=== PATIENT | female | born 1955 | race Caucasian/White ===

== ENCOUNTER → 2016-08-18 | Outpatient (CLI) | payer MEDICARE, OTHER ==
[2016-08-19 13:19] LABS: Hepatits C Virus RNA, Quant <12 IU/mL (<12); LOG HCV IU/mL <1.08 (<1.08)
== END | disposition home or self-care (01) ==
LOC: LABWHC1 13:36
PROVIDERS: ATTEND Physician Assistant
DX: B18.2 Chronic viral hepatitis C (principal)
CPT/HCPCS: 36415; 87522

== ENCOUNTER → 2016-09-24 | Outpatient (CLI) | payer MEDICARE, OTHER ==
[2016-09-24 09:44] VITALS: BP 140/83; PULSE 80; RESP 16; TEMP 97.8; BMI 33.7
--- NOTE | 2016-09-24 11:40 | P.GSHP ---
History of Present Illness H&P Date: 09/24/16 Chief Complaint: S/p sleeve gastrectomy 60 years old female with morbid obesity initial BMI 41.9, height 5 feet 6.5 inches, weight 118.93 kg status post laparoscopic sleeve gastrectomy . Her comorbid conditions include obstructive sleep apnea on CPAP, varicose veins , chronic venous dermatitis in bilateral lower extremities, hypertension, gastroesophageal reflux disease, bulimia, binge eating disorder, hepatitis C and depression. Her computed tomography scan showed malrotation of small intestine. Small bowel follow-through confirmed the diagnosis of malrotation. She also has frequent urinary tract infections. No growth on urine cultures. History of IV drug abuse and alcohol abuse in the past. She has been sober for the last 15 years and is undergoing counseling sessions. She also has a rash more prominent in the neck, chest, antecubital fossa and suprapubic area. She has seen Dr. Finn( Re[employer] Supervisor) and biopsy showed dermatitis. She is tolerating diet .Regular bowel movements. She is tearful and crying and feels she is not losing enough weight. Recent stressful situations at home and not taking protein shakes. She is not involved in any physical activity . Surgery for spinal stenosis on 02/13/16 Preoperative visit #1, 05/16/2015, weight 118.93 KG, 262.2 pound BMI 41.7 Preoperative visit #2, 06/27/2015, weight 260 pounds, BMI 41.3 Preoperative visit #3 12/12/2015, weight 119.77 KG, BMI 42.6 Surgery 12/27/2015 laparoscopic vertical sleeve gastrectomy Postoperative visit #1 01/02/2016, weight 116.8 KG, BMI 40.9 Postoperative visit #2 02/06/2016, weight 107.1 KG, BMI 37.6 Postoperative visit #3 07/02/2016, weight 97.57KG, BMI 34.2 Postoperative visit #4 09/24/2016, weight 96.24KG, BMI 33.7 - Review of Systems Comment: Constitutional: Denies fever, weight loss or loss of appetite HEENT: No difficulty in vision or hearing. Denies dysphagia. Cardiovascular: Denies chest pain, palpitations, dizziness, shortness of breath except on exertion Respiratory: Sleep apnea on CPAP. Last adjustment was 8 months ago. Gastrointestinal: History of intermittent diarrhea. Underwent colonoscopy by Dr. Tumma. Normal colonoscopy findings. Diagnosis of irritable bowel syndrome. Chronic hepatitis C. Integumentary: Long-standing skin changes with intermittent skin breakdown in bilateral lower extremities. No active ulcers. History of DVT. Maculopapular rash prominent in neck, anterior chest, lateral breast, upper extremities is markedly improved Genitourinary: No urinary incontinence, hematuria or dysuria. Frequent urinary tract infections Neurologic: No seizures, denies weakness in upper or lower extremities Musculoskeletal: Low back pain and occasional knee pain Psychiatry: Known history of depression, bulimia, eating disorder and remote history of heroine use and alcohol dependence. No suicidal ideation, no anxiety or psychosis Past Medical History Past Medical History: Eye Disorder, Fibromyalgia, Hypertension, Liver Disease, Osteoarthritis (OA), Rheumatoid Arthritis (RA), Skin Disorder, Sleep Apnea/CPAP/ BIPAP, Thyroid Disorder Additional Past Medical History / Comment(s): Hepatitis C - in remission, ELAINE- has not been wearing CPAP lately, neuorpathy bilateral hands and feet,IBS, hx colitis, frequent headaches, varicose veins bilaterally, dermatitis,hx psoriasis , chronic UTI's, raymauds-hands and feet, glaucoma bilaterally, hypothyroid. bariatric sleeve 12-27-15 History of Any Multi-Drug Resistant Organisms: None Reported Past Surgical History: Appendectomy, Bariatric Surgery, Orthopedic Surgery, Tonsillectomy Additional Past Surgical History / Comment(s): 12/27/15 laparoscopic sleeve gastrectomy with EGD. Other surgical hx: EGD/colonoscopy, nasal surgery, left hand-tendon surgery in thumb with carpal tunnel and trigger finger, RUTH KNEES AND ANKLES ARTHROSCOPY, ruth cataracts Sleeve Past Anesthesia/Blood Transfusion Reactions: Motion Sickness Past Psychological History: Anxiety, Depression Additional Psychological History / Comment(s): BORDERLINE PERSONALITY DISORDER, clausterphobia. Pt resides alone. She has a scooter for longer distances and a cane. She drives. She is seen at [facility] by Dr. Roberts. She states her psych meds work well for her. Smoking Status: Former smoker Past Alcohol Use History: None Reported Additional Past Alcohol Use History / Comment(s): quit smoking 28 yrs ago, smoked for 14 yrs. recovering alcoholic Past Drug Use History: None Reported Additional Drug Use History / Comment(s): IV DRUG USER IN PAST, CLEAN SINCE 1985 - Past Family History Mother Family Medical History: Diabetes Mellitus, Renal Disease Additional Family Medical History / Comment(s): Mother is 80yrs old. Father Family Medical History: Cancer, COPD Additional Family Medical History / Comment(s): PROSTATE and SKIN cancer. at 82 of COPD. Brother(s) Family Medical History: Cancer Additional Family Medical History / Comment(s): PROSTATE, skin Medications and Allergies Home Medications Medication Instructions Recorded Confirmed Type Levothyroxine Sodium [Synthroid] 88 mcg PO DAILY 12/03/13 06/18/16 History Lisinopril-Hctz 20-25 mg 1 tab PO DAILY 12/03/13 06/18/16 History [Zestoretic 20-25] Dicyclomine [Bentyl] 20 mg PO QID PRN 11/28/14 06/18/16 History Fluticasone Nasal [place] [Flonase 1 - 2 spray NASAL DAILY PRN 12/29/14 06/18/16 History Nasal [place]] Nystatin 100,000 Unit/gm Oint 1 applic TOPICAL DAILY PRN 12/29/14 06/18/16 History [Mycostatin Oint] Pregabalin [Lyrica] 75 mg PO BID 02/05/15 06/18/16 History Montelukast Sodium [Singulair] 10 mg PO HS 12/18/15 06/18/16 History Triamcinolone 0.1% Cream [Kenalog] 1 applic TOPICAL DAILY PRN 12/18/15 06/18/16 History Multivitamins, Thera [Multivitamin] 1 tab PO DAILY 04/24/16 06/18/16 History oxyCODONE HCL 10 mg PO BID PRN 04/24/16 06/18/16 History traZODone HCL [Desyrel] 100 mg PO HS 04/24/16 06/18/16 History Biotin 5 mg PO DAILY 06/18/16 06/18/16 History Calcium Carbonate/Vitamin D3 1 tab PO BID 06/18/16 06/18/16 History [Calcium 600-Vit D3 200 Tablet] DULoxetine HCL [Cymbalta] 60 mg PO DAILY 06/18/16 06/18/16 History Allergies Allergy/AdvReac Type Severity Reaction Status Date / Time fentanyl Allergy Rash/Hives Verified 07/02/16 09:58 lamotrigine [From Lamictal] Allergy Rash/Hives Verified 07/02/16 09:58 Sulfa (Sulfonamide Allergy Unknown Verified 07/02/16 09:58 Antibiotics) Surgical - Exam Vital Signs Temp Pulse Resp BP 97.8 F 80 16 140/83 09/24/16 09:41 09/24/16 09:41 09/24/16 09:41 09/24/16 09:41 General: Patient is alert and oriented to time, place and person and cooperative with exam. She is not in acute distress. HEENT: No pallor, no icterus, no thyroid enlargement, no cervical lymphadenopathy. Chest: Bilateral equal breath sounds present. No wheezes, no crackles. Cardiovascular: Regular rate and rhythm. Abdomen: Soft, nontender, nondistended. No right upper quadrant tenderness. Diffuse rash. Panniculitis Integumentary: Bilateral lower extremity chronic venous dermatitis. Dermatitis involving both breast and lateral abdominal wall Neurologic: Cranial nerves II-XII intact. Strength upper and lower extremities 5/5. No focal neurologic deficits. Gait is normal. Psychiatric: No anxiety or psychosis. No suicidal thoughts. Assessment and Plan (1) Chronic pain syndrome Status: Acute (2) History of sleeve gastrectomy Status: Acute (3) Hypertension Status: Chronic (4) Raynauds syndrome Status: Chronic (5) Restless leg syndrome Status: Chronic (6) Rheumatoid arthritis Status: Chronic (7) Sleep apnea with use of continuous positive airway pressure (CPAP) Status: Chronic Plan: 1. Attend support group meeting 2. Multivitamin supplementation daily- non chewable 3. Vitamin D deficiency - oral supplementation [id number] weekly 4. Increase physical activity 5. Check CBC, CMP, mineral and vitamin levels prior to next visit in 3 months 6. Strongly recommend seeing pysch counsellor TONY.
== END | disposition home or self-care (01) ==
LOC: BARWHC3 09:09
PROVIDERS: ATTEND Surgery
DX: Z48.815 Encounter for surgical aftercare following surgery on the digestive system (principal); Z71.3 Dietary counseling and surveillance; E66.01 Morbid (severe) obesity due to excess calories; Z98.84 Bariatric surgery status; E55.9 Vitamin D deficiency, unspecified; Z68.33 Body mass index [BMI] 33.0-33.9, adult; Z79.899 Other long term (current) drug therapy; Z88.8 Allergy status to other drugs, medicaments and biological substances; Z88.2 Allergy status to sulfonamides; G89.4 Chronic pain syndrome; I10 Essential (primary) hypertension; I73.00 Raynaud's syndrome without gangrene; G25.81 Restless legs syndrome; M06.9 Rheumatoid arthritis, unspecified; G47.30 Sleep apnea, unspecified; Z99.89 Dependence on other enabling machines and devices; Z87.891 Personal history of nicotine dependence; F10.21 Alcohol dependence, in remission; M79.7 Fibromyalgia; M19.90 Unspecified osteoarthritis, unspecified site; E07.9 Disorder of thyroid, unspecified; Z86.19 Personal history of other infectious and parasitic diseases
CPT/HCPCS: 97803; G0463; 99211

== ENCOUNTER 2016-10-12 21:03 | Emergency (ER) | payer MEDICARE, OTHER ==
[2016-10-12 23:10] LABS: Amorphous Sediment,Urine Occasional /hpf; Appearance,Urine Cloudy (Clear); Bilirubin,Urine Negative (Negative); Glucose,Urine (UA) Negative (Negative); Ketones,Urine Negative (Negative); Leukocyte Esterase,Urine Large (Negative); Mucus,Urine Rare /hpf; Nitrite,Urine Negative (Negative); Particle Count 3616; Protein,Urine Trace (Negative); RBC,Urine 11 /hpf (0-5); Specific Gravity,Urine 1.025 (1.001-1.035); Squamous Epithelial Cell,Urine 3 /hpf (0-4); UA Billing (MACRO vs. MICRO) MICRO; Urobilinogen,Urine <2.0 mg/dL (<2.0); WBC,Urine >182 /hpf (0-5)
[2016-10-12] MEDS ORDERED: LEVOFLOXACIN 500 MG TAB PO STA (23:22)
[2016-10-12] MEDS ORDERED: PHENAZOPYRIDINE 100 MG TAB PO STA (23:22)
--- NOTE | 2016-10-12 23:26 | ED ---
Female Urogenital HPI - General Chief complaint: Urogenital Stated complaint: Poss UTI Time Seen by Provider: 10/12/16 22:47 Source: patient Mode of arrival: ambulatory Limitations: no limitations - History of Present Illness MD Complaint: dysuria Onset/Timin -: hour(s) Location: suprapubic Radiation: non-radiating Severity: moderate Quality: other (Pressure) Consistency: constant Improves with: none Worsens with: urination Patient : No Associated Symptoms: dysuria, other (Urgency) - Related Data Home Medications Medication Instructions Recorded Confirmed Levothyroxine Sodium [Synthroid] 88 mcg PO DAILY 12/03/13 10/12/16 Lisinopril-Hctz 20-25 mg 1 tab PO DAILY 12/03/13 10/12/16 [Zestoretic 20-25] Dicyclomine [Bentyl] 20 mg PO QID PRN 11/28/14 10/12/16 Fluticasone Nasal [place] [Flonase 1 - 2 spray NASAL DAILY PRN 12/29/14 10/12/16 Nasal [place]] Nystatin 100,000 Unit/gm Oint 1 applic TOPICAL DAILY PRN 12/29/14 10/12/16 [Mycostatin Oint] Pregabalin [Lyrica] 75 mg PO BID 02/05/15 10/12/16 Montelukast Sodium [Singulair] 10 mg PO HS 12/18/15 10/12/16 Triamcinolone 0.1% Cream [Kenalog] 1 applic TOPICAL DAILY PRN 12/18/15 10/12/16 Multivitamins, Thera [Multivitamin] 1 tab PO DAILY 04/24/16 10/12/16 oxyCODONE HCL 10 mg PO BID PRN 04/24/16 10/12/16 traZODone HCL [Desyrel] 100 mg PO HS 04/24/16 10/12/16 Biotin 5 mg PO DAILY 06/18/16 10/12/16 Calcium Carbonate/Vitamin D3 1 tab PO BID 06/18/16 10/12/16 [Calcium 600-Vit D3 200 Tablet] DULoxetine HCL [Cymbalta] 60 mg PO DAILY 06/18/16 10/12/16 Previous Rx's Medication Instructions Recorded Nitrofurantoin Monohyd/M-Cryst 100 mg PO Q12HR #10 cap 06/18/16 [Macrobid] Ciprofloxacin HCl [Cipro] 500 mg PO Q12HR #14 tablet 10/12/16 Phenazopyridine [Pyridium] 100 mg PO TID #6 tablet 10/12/16 Allergies Allergy/AdvReac Type Severity Reaction Status Date / Time fentanyl Allergy Rash/Hives Verified 10/12/16 22:16 lamotrigine [From Lamictal] Allergy Rash/Hives Verified 10/12/16 22:16 Sulfa (Sulfonamide Allergy Unknown Verified 10/12/16 22:16 Antibiotics) Review of Systems ROS Statement: Those systems with pertinent positive or pertinent negative responses have been documented in the HPI. ROS Other: All systems not noted in ROS Statement are negative. Constitutional: Denies: fever, chills Respiratory: Denies: cough, dyspnea Cardiovascular: Denies: chest pain, palpitations Gastrointestinal: Reports: as per HPI, abdominal pain. Denies: nausea, vomiting , diarrhea, constipation Genitourinary: Reports: as per HPI, urgency, dysuria, frequency. Denies: discharge Musculoskeletal: Denies: back pain Skin: Denies: rash Neurological: Denies: headache Past Medical History Past Medical History: Eye Disorder, Fibromyalgia, Hypertension, Liver Disease, Osteoarthritis (OA), Rheumatoid Arthritis (RA), Skin Disorder, Sleep Apnea/CPAP/ BIPAP, Thyroid Disorder Additional Past Medical History / Comment(s): Hepatitis C - in remission, ELAINE- has not been wearing CPAP lately, neuorpathy bilateral hands and feet,IBS, hx colitis, frequent headaches, varicose veins bilaterally, dermatitis,hx psoriasis , chronic UTI's, raymauds-hands and feet, glaucoma bilaterally, hypothyroid. bariatric sleeve 12-27-15 History of Any Multi-Drug Resistant Organisms: None Reported Past Surgical History: Appendectomy, Bariatric Surgery, Orthopedic Surgery, Tonsillectomy Additional Past Surgical History / Comment(s): 12/27/15 laparoscopic sleeve gastrectomy with EGD. Other surgical hx: EGD/colonoscopy, nasal surgery, left hand-tendon surgery in thumb with carpal tunnel and trigger finger, RUTH KNEES AND ANKLES ARTHROSCOPY, ruth cataracts Sleeve Past Anesthesia/Blood Transfusion Reactions: Motion Sickness Past Psychological History: Anxiety, Depression Additional Psychological History / Comment(s): BORDERLINE PERSONALITY DISORDER, clausterphobia. Pt resides alone. She has a scooter for longer distances and a cane. She drives. She is seen at [facility] by Dr. Roberts. She states her psych meds work well for her. Smoking Status: Former smoker Past Alcohol Use History: None Reported Additional Past Alcohol Use History / Comment(s): quit smoking 28 yrs ago, smoked for 14 yrs. recovering alcoholic Past Drug Use History: None Reported Additional Drug Use History / Comment(s): IV DRUG USER IN PAST, CLEAN SINCE 1985 - Past Family History Mother Family Medical History: Diabetes Mellitus, Renal Disease Additional Family Medical History / Comment(s): Mother is 80yrs old. Father Family Medical History: Cancer, COPD Additional Family Medical History / Comment(s): PROSTATE and SKIN cancer. at 82 of COPD. Brother(s) Family Medical History: Cancer Additional Family Medical History / Comment(s): PROSTATE, skin General Exam Limitations: no limitations General appearance: alert, in no apparent distress, obese Respiratory exam: Present: normal lung sounds bilaterally. Absent: respiratory distress, wheezes, rales, rhonchi, stridor Cardiovascular Exam: Present: regular rate, normal rhythm, normal heart sounds. Absent: systolic murmur, diastolic murmur, rubs, gallop GI/Abdominal exam: Present: soft. Absent: distended, tenderness, guarding, rebound, mass Extremities exam: Present: normal inspection. Absent: pedal edema, calf tenderness Back exam: Absent: CVA tenderness (R), CVA tenderness (L) Neurological exam: Present: alert Skin exam: Present: warm, dry, intact, normal color. Absent: rash Course Vital Signs 10/12/16 22:12 Temperature 97.1 F L Pulse Rate 84 Respiratory 16 Rate Blood Pressure 130/85 O2 Sat by Pulse 97 Oximetry Medical Decision Making - Lab Data Lab Results 10/12/16 Range/Units 23:00 Urine Color Yellow Urine Appearance Cloudy H (Clear) Urine pH 5.0 (5.0-8.0) Ur Specific [place] 1.025 (1.001-1.035) Urine Protein Trace H (Negative) Urine Glucose (UA) Negative (Negative) Urine Ketones Negative (Negative) Urine Blood Trace H (Negative) Urine Nitrite Negative (Negative) Urine Bilirubin Negative (Negative) Urine Urobilinogen <2.0 (<2.0) mg/dL Ur Leukocyte Esterase Large H (Negative) Urine RBC 11 H (0-5) /hpf Urine WBC >182 H (0-5) /hpf Urine WBC Clumps Many H (None) /hpf Ur Squamous Epith Cells 3 (0-4) /hpf Amorphous Sediment Occasional H (None) /hpf Hyaline Casts 3 H (0-2) /lpf Urine Mucus Rare H (None) /hpf Disposition Clinical Impression: Urinary tract infection Disposition: HOME SELF-CARE Condition: Good Instructions: Urinary Tract Infection in Women (ED) Prescriptions: Ciprofloxacin HCl [Cipro] 500 mg PO Q12HR #14 tablet Phenazopyridine [Pyridium] 100 mg PO TID #6 tablet Referrals: Aquilino Sow DO [Primary Care Provider] - 1-2 days
[2016-10-12 23:37] VITALS: BP 137/82; PULSE 67; RESP 18; TEMP 97
== END 2016-10-12 23:37 | disposition home or self-care (01) ==
LOC: EC 21:03
DX: N39.0 Urinary tract infection, site not specified (principal); I10 Essential (primary) hypertension; M79.7 Fibromyalgia; K58.9 Irritable bowel syndrome, unspecified; K52.9 Noninfective gastroenteritis and colitis, unspecified; E03.9 Hypothyroidism, unspecified; F41.9 Anxiety disorder, unspecified; F32.9 Major depressive disorder, single episode, unspecified; Z87.891 Personal history of nicotine dependence; Z87.440 Personal history of urinary (tract) infections; Z79.51 Long term (current) use of inhaled steroids; Z79.899 Other long term (current) drug therapy; Z88.8 Allergy status to other drugs, medicaments and biological substances; Z88.5 Allergy status to narcotic agent; Z88.2 Allergy status to sulfonamides
CPT/HCPCS: 81001; 99283

== ENCOUNTER → 2017-01-07 | Outpatient (CLI) | payer MEDICARE, OTHER ==
[2017-01-07 09:55] VITALS: BP 118/77; PULSE 75; RESP 16; TEMP 97.7; BMI 32.3
[2017-01-07 12:11] LABS: CH 30.3; CHCM 33.9; HCT 42.4 % (34.0-46.0); HDW 2.74; HGB 14.4 gm/dL (11.4-16.0); MCH 30.4 pg (25.0-35.0); MCHC 33.8 g/dL (31.0-37.0); MCV 89.8 fL (80.0-100.0); Mean Platelet Volume 7.5; RBC 4.73 m/uL (3.80-5.40); RDW 13.3 % (11.5-15.5); WBC 6.3 k/uL (3.8-10.6)
[2017-01-07 12:37] LABS: ALT 51 U/L (9-52); AST 35 U/L (14-36); Alkaline Phosphatase 75 U/L (38-126); Anion Gap 16 mmol/L; Blood Urea Nitrogen 36 mg/dL (7-17); Carbon Dioxide 25 mmol/L (22-30); Chloride 104 mmol/L (98-107); Cholesterol 174 mg/dL (<200); Glucose 120 mg/dL (74-99); HDL Cholesterol 69 mg/dL (40-60); Iron 112 ug/dL (37-170); Magnesium 1.7 mg/dL (1.6-2.3); Non-African American GFR(MDRD) 56 (>60 ml/min/1.73 sqM); Phosphorous 4.4 mg/dL (2.5-4.5); Potassium 4.5 mmol/L (3.5-5.1); Sodium 145 mmol/L (137-145); Total Bilirubin 0.6 mg/dL (0.2-1.3); Total Protein 7.8 g/dL (6.3-8.2); Triglycerides 116 mg/dL (<150)
[2017-01-07 12:48] LABS: % Iron Saturation 31.6 % (20-50); Prealbumin 20 mg/dL (18-36); Total Iron Binding Capacity 354 ug/dL (265-497)
[2017-01-07 13:46] LABS: Vitamin B12 663 pg/mL (239-931)
--- NOTE | 2017-01-07 19:10 | P.GSHP ---
History of Present Illness H&P Date: 01/07/17 Chief Complaint: 12/27/2015 laparoscopic vertical sleeve gastrectomy 60 years old female with morbid obesity initial BMI 41.9, height 5 feet 6.5 inches, weight 118.93 kg status post laparoscopic sleeve gastrectomy . Her comorbid conditions include obstructive sleep apnea on CPAP- resolved, varicose veins, chronic venous dermatitis in bilateral lower extremities- resolved , hypertension, gastroesophageal reflux disease- resolved , bulimia, binge eating disorder, hepatitis C and depression. Her computed tomography scan showed malrotation of small intestine. Small bowel follow-through confirmed the diagnosis of malrotation. She also has frequent urinary tract infections. History of IV drug abuse and alcohol abuse in the past. She has been sober for the last 15 years and is undergoing counseling sessions. She also has a rash more prominent in the neck, chest, antecubital fossa and suprapubic area. She has seen Dr. Finn( [facility]) and biopsy showed dermatitis. She is tolerating diet . Regular bowel movements. Surgery for spinal stenosis on 02/13/16 Interested in panniculectomy and breast reduction. She did see Dr. Fleming, plastic surgeon. She does not want breast reduction and now wants only panniculectomy. She has rash in the groin crease and has difficulty in maintaining local hygiene . She has resumed increased pphysical activity and has better mood and effect since last visit Preoperative visit #1, 05/16/2015, weight 118.93 KG, 262.2 pound BMI 41.7 Preoperative visit #2, 06/27/2015, weight 260 pounds, BMI 41.3 Preoperative visit #3 12/12/2015, weight 119.77 KG, BMI 42.6 Surgery 12/27/2015 laparoscopic vertical sleeve gastrectomy Postoperative visit #1 01/02/2016, weight 116.8 KG, BMI 40.9 Postoperative visit #2 02/06/2016, weight 107.1 KG, BMI 37.6 Postoperative visit #3 07/02/2016, weight 97.57KG, BMI 34.2 Postoperative visit #4 09/24/2016, weight 96.24KG, BMI 33.7 Postoperative visit #5 01/07/2017, weight 90.7KG, BMI 32.3 - Review of Systems Comment: Constitutional: Denies fever, weight loss or loss of appetite HEENT: No difficulty in vision or hearing. Denies dysphagia. Cardiovascular: Denies chest pain, palpitations, dizziness, shortness of breath except on exertion Respiratory: Sleep apnea on CPAP. Last adjustment was 8 months ago. Gastrointestinal: History of intermittent diarrhea. Underwent colonoscopy by Dr. Aragon. Normal colonoscopy findings. Diagnosis of irritable bowel syndrome. Chronic hepatitis C. Integumentary: Long-standing skin changes with intermittent skin breakdown in bilateral lower extremities. No active ulcers. History of DVT. Maculopapular rash prominent in neck, anterior chest, lateral breast, upper extremities is markedly improved Genitourinary: No urinary incontinence, hematuria or dysuria. Frequent urinary tract infections Neurologic: No seizures, denies weakness in upper or lower extremities Musculoskeletal: Low back pain and occasional knee pain Psychiatry: Known history of depression, bulimia, eating disorder and remote history of heroine use and alcohol dependence. No suicidal ideation, no anxiety or psychosis Past Medical History Past Medical History: Eye Disorder, Fibromyalgia, Hypertension, Liver Disease, Osteoarthritis (OA), Rheumatoid Arthritis (RA), Skin Disorder, Sleep Apnea/CPAP/ BIPAP, Thyroid Disorder Additional Past Medical History / Comment(s): Hepatitis C - in remission, ELAINE- has not been wearing CPAP lately, neuorpathy bilateral hands and feet,IBS, hx colitis, frequent headaches, varicose veins bilaterally, dermatitis,hx psoriasis , chronic UTI's, raymauds-hands and feet, glaucoma bilaterally, hypothyroid. bariatric sleeve 12-27-15 History of Any Multi-Drug Resistant Organisms: None Reported Past Surgical History: Appendectomy, Bariatric Surgery, Orthopedic Surgery, Tonsillectomy Additional Past Surgical History / Comment(s): 12/27/15 laparoscopic sleeve gastrectomy with EGD. Other surgical hx: EGD/colonoscopy, nasal surgery, left hand-tendon surgery in thumb with carpal tunnel and trigger finger, RUTH KNEES AND ANKLES ARTHROSCOPY, ruth cataracts Sleeve Past Anesthesia/Blood Transfusion Reactions: Motion Sickness Past Psychological History: Anxiety, Depression Additional Psychological History / Comment(s): BORDERLINE PERSONALITY DISORDER, clausterphobia. Pt resides alone. She has a scooter for longer distances and a cane. She drives. She is seen at [facility] by Dr. Roberts. She states her psych meds work well for her. Smoking Status: Former smoker Past Alcohol Use History: None Reported Additional Past Alcohol Use History / Comment(s): quit smoking 28 yrs ago, smoked for 14 yrs. recovering alcoholic Past Drug Use History: None Reported Additional Drug Use History / Comment(s): IV DRUG USER IN PAST, CLEAN SINCE 1985 - Past Family History Mother Family Medical History: Diabetes Mellitus, Renal Disease Additional Family Medical History / Comment(s): Mother is 80yrs old. Father Family Medical History: Cancer, COPD Additional Family Medical History / Comment(s): PROSTATE and SKIN cancer. at 82 of COPD. Brother(s) Family Medical History: Cancer Additional Family Medical History / Comment(s): PROSTATE, skin Medications and Allergies Home Medications Medication Instructions Recorded Confirmed Type Levothyroxine Sodium [Synthroid] 88 mcg PO DAILY 12/03/13 01/07/17 History Lisinopril-Hctz 20-25 mg 1 tab PO DAILY 12/03/13 01/07/17 History [Zestoretic 20-25] Fluticasone Nasal [place] [Flonase 1 - 2 spray NASAL DAILY PRN 12/29/14 01/07/17 History Nasal [place]] Nystatin 100,000 Unit/gm Oint 1 applic TOPICAL DAILY PRN 12/29/14 01/07/17 History [Mycostatin Oint] Montelukast Sodium [Singulair] 10 mg PO HS 12/18/15 01/07/17 History Triamcinolone 0.1% Cream [Kenalog] 1 applic TOPICAL DAILY PRN 12/18/15 01/07/17 History Multivitamins, Thera [Multivitamin] 1 tab PO DAILY 04/24/16 01/07/17 History oxyCODONE HCL 10 mg PO BID PRN 04/24/16 01/07/17 History traZODone HCL [Desyrel] 100 mg PO HS PRN 04/24/16 01/07/17 History Biotin 5 mg PO DAILY 06/18/16 01/07/17 History Calcium Carbonate/Vitamin D3 1 tab PO BID 06/18/16 01/07/17 History [Calcium 600-Vit D3 200 Tablet] DULoxetine HCL [Cymbalta] 60 mg PO DAILY 06/18/16 01/07/17 History Allergies Allergy/AdvReac Type Severity Reaction Status Date / Time fentanyl Allergy Rash/Hives Verified 01/07/17 09:42 lamotrigine [From Lamictal] Allergy Rash/Hives Verified 01/07/17 09:42 Sulfa (Sulfonamide Allergy Unknown Verified 01/07/17 09:42 Antibiotics) Surgical - Exam Vital Signs Temp Pulse Resp BP 97.7 F 75 16 118/77 01/07/17 09:49 01/07/17 09:49 01/07/17 09:49 01/07/17 09:49 General: Patient is alert and oriented to time, place and person and cooperative with exam. She is not in acute distress. HEENT: No pallor, no icterus, no thyroid enlargement, no cervical lymphadenopathy. Chest: Bilateral equal breath sounds present. No wheezes, no crackles. Cardiovascular: Regular rate and rhythm. Abdomen: Soft, nontender, nondistended. No right upper quadrant tenderness. Diffuse rash. Panniculitis Integumentary: Bilateral lower extremity chronic venous dermatitis. Dermatitis involving both breast and lateral abdominal wall and groin creases Neurologic: Cranial nerves II-XII intact. Strength upper and lower extremities 5/5. No focal neurologic deficits. Gait is normal. Psychiatric: No anxiety or psychosis. No suicidal thoughts. Results - Labs 01/07/17 11:41 01/07/17 11:41 Abnormal Lab Results - Last 24 Hours (Table) 01/07/17 Range/Units 11:41 BUN 36 H (7-17) mg/dL Glucose 120 H (74-99) mg/dL Albumin 5.1 H (3.5-5.0) g/dL HDL Cholesterol 69 H (40-60) mg/dL Diabetes panel 01/07/17 Range/Units 11:41 Sodium 145 (137-145) mmol/L Potassium 4.5 (3.5-5.1) mmol/L Chloride 104 (98-107) mmol/L Carbon Dioxide 25 (22-30) mmol/L BUN 36 H (7-17) mg/dL Creatinine 1.00 (0.52-1.04) mg/dL Glucose 120 H (74-99) mg/dL Calcium 10.0 (8.4-10.2) mg/dL AST 35 (14-36) U/L ALT 51 (9-52) U/L Alkaline Phosphatase 75 (38-126) U/L Total Protein 7.8 (6.3-8.2) g/dL Albumin 5.1 H (3.5-5.0) g/dL Triglycerides 116 (<150) mg/dL HDL Cholesterol 69 H (40-60) mg/dL Thyroid panel 01/07/17 Range/Units 11:41 TSH 1.850 (0.465-4.680) mIU/L Calcium panel 01/07/17 Range/Units 11:41 Calcium 10.0 (8.4-10.2) mg/dL Phosphorus 4.4 (2.5-4.5) mg/dL Albumin 5.1 H (3.5-5.0) g/dL Pituitary panel 01/07/17 Range/Units 11:41 Sodium 145 (137-145) mmol/L Potassium 4.5 (3.5-5.1) mmol/L Chloride 104 (98-107) mmol/L Carbon Dioxide 25 (22-30) mmol/L BUN 36 H (7-17) mg/dL Creatinine 1.00 (0.52-1.04) mg/dL Glucose 120 H (74-99) mg/dL Calcium 10.0 (8.4-10.2) mg/dL TSH 1.850 (0.465-4.680) mIU/L Adrenal panel 01/07/17 Range/Units 11:41 Sodium 145 (137-145) mmol/L Potassium 4.5 (3.5-5.1) mmol/L Chloride 104 (98-107) mmol/L Carbon Dioxide 25 (22-30) mmol/L BUN 36 H (7-17) mg/dL Creatinine 1.00 (0.52-1.04) mg/dL Glucose 120 H (74-99) mg/dL Calcium 10.0 (8.4-10.2) mg/dL Total Bilirubin 0.6 (0.2-1.3) mg/dL AST 35 (14-36) U/L ALT 51 (9-52) U/L Alkaline Phosphatase 75 (38-126) U/L Total Protein 7.8 (6.3-8.2) g/dL Albumin 5.1 H (3.5-5.0) g/dL Assessment and Plan (1) Dermatitis Status: Acute (2) Chronic pain syndrome Status: Acute (3) History of sleeve gastrectomy Status: Acute (4) Hypertension Status: Chronic (5) Raynauds syndrome Status: Chronic (6) Restless leg syndrome Status: Chronic (7) Rheumatoid arthritis Status: Chronic (8) Hypothyroid Status: Acute (9) Vitamin D deficiency Status: Acute Plan: 1. Attend support group meeting 2. Multivitamin supplementation daily- non chewable 3. Vitamin D deficiency - oral supplementation [id number] weekly 4. Increase physical activity 5. Check CBC, CMP, mineral and vitamin levels in 1 yr 6[address] Referral to Dr. Blake for panniculectomy . 7. Follow up in 1 yr 8. Screening mammogram
== END | disposition home or self-care (01) ==
LOC: BARWHC3 08:59
PROVIDERS: ATTEND Surgery
DX: L30.9 Dermatitis, unspecified (principal); G89.4 Chronic pain syndrome; I10 Essential (primary) hypertension; I73.00 Raynaud's syndrome without gangrene; G25.81 Restless legs syndrome; M06.9 Rheumatoid arthritis, unspecified; Z98.84 Bariatric surgery status; Z88.5 Allergy status to narcotic agent; Z88.2 Allergy status to sulfonamides
CPT/HCPCS: 84134; 84425; 80061; 80053; 82607; 82728; 82746; 83540; 83550; 83735; 84100; 84443; 84590; 85027; 82306; 83970; 97803; 36415; G0463; 99211

== ENCOUNTER 2017-04-16 18:57 | Observation (INO) | payer MEDICARE, OTHER ==
[2017-04-16 19:22] LABS: Glucose,Whole Blood 82 mg/dL (75-99)
--- NOTE | 2017-04-16 19:36 | ED ---
General Adult HPI - General Source: patient, RN notes reviewed Mode of arrival: ambulatory Limitations: no limitations <Estrada Salazar - Last Filed: 04/16/17 20:59> <Keyon Peralta - Last Filed: 04/16/17 23:12> - General Chief complaint: Weakness Stated complaint: Weak,Shaky,Sweaty Time Seen by Provider: 04/16/17 19:15 - History of Present Illness Initial comments: This is a 61-year-old female presents emergency Department complaining of having an episode of diaphoresis while in a meeting. Patient states there is nothing exciting or stressful going on and the meeting she just broke out into a sweat and became very lightheaded thought she might pass out and then was mildly short of breath. Patient states she felt some tingling in her arms but never lost any function or feeling. Patient states the weakness and sweating still continue now. Patient states she felt as though her heart might be racing and she states that it feels like it's racing currently however on the monitor she is only at 60 beats a minute. Patient denies any recent fever chills or cough. Patient denies any chest pain. Patient denies any abdominal pain patient denies any nausea vomiting diarrhea. Patient states she's been eating normally. Patient denies any dysuria hematuria urinary frequency. Patient denies any back pain. (Estrada Salazar) - Related Data Home Medications Medication Instructions Recorded Confirmed Levothyroxine Sodium [Synthroid] 88 mcg PO DAILY 12/03/13 04/16/17 Lisinopril-Hctz 20-25 mg 1 tab PO DAILY 12/03/13 04/16/17 [Zestoretic 20-25] Fluticasone Nasal [place] [Flonase 1 - 2 spray NASAL DAILY PRN 12/29/14 04/16/17 Nasal [place]] Nystatin 100,000 Unit/gm Oint 1 applic TOPICAL DAILY PRN 12/29/14 04/16/17 [Mycostatin Oint] Montelukast Sodium [Singulair] 10 mg PO HS 12/18/15 04/16/17 Triamcinolone 0.1% Cream [Kenalog] 1 applic TOPICAL DAILY PRN 12/18/15 04/16/17 Multivitamins, Thera [Multivitamin] 1 tab PO DAILY 04/24/16 04/16/17 Calcium Carbonate/Vitamin D3 1 tab PO BID 06/18/16 04/16/17 [Calcium 600-Vit D3 200 Tablet] DULoxetine HCL [Cymbalta] 90 mg PO DAILY 04/16/17 04/16/17 oxyCODONE ER [OxyCONTIN 15MG E.R] 15 mg PO Q12HR PRN 04/16/17 04/16/17 Allergies Allergy/AdvReac Type Severity Reaction Status Date / Time adhesive tape Allergy Unknown Verified 04/16/17 20:20 lamotrigine [From Lamictal] Allergy Rash/Hives Verified 04/16/17 20:17 Sulfa (Sulfonamide Allergy Unknown Verified 04/16/17 20:17 Antibiotics) Review of Systems ROS Other: All systems not noted in ROS Statement are negative. <Estrada Salazar - Last Filed: 04/16/17 20:59> ROS Other: All systems not noted in ROS Statement are negative. <Keyon Peralta - Last Filed: 04/16/17 23:12> ROS Statement: Those systems with pertinent positive or pertinent negative responses have been documented in the HPI. Past Medical History Past Medical History: Eye Disorder, Fibromyalgia, Hypertension, Liver Disease, Osteoarthritis (OA), Rheumatoid Arthritis (RA), Skin Disorder, Sleep Apnea/CPAP/ BIPAP, Thyroid Disorder Additional Past Medical History / Comment(s): Hepatitis C - in remission, neuorpathy bilateral hands and feet,IBS, hx colitis, frequent headaches, varicose veins bilaterally, dermatitis,hx psoriasis, chronic UTI's, raymauds- hands and feet, glaucoma bilaterally, hypothyroid. bariatric sleeve 12-27-15 History of Any Multi-Drug Resistant Organisms: None Reported Past Surgical History: Appendectomy, Back Surgery, Bariatric Surgery, Orthopedic Surgery, Tonsillectomy Additional Past Surgical History / Comment(s): 12/27/15 laparoscopic sleeve gastrectomy with EGD. Other surgical hx: EGD/colonoscopy, nasal surgery, left hand-tendon surgery in thumb with carpal tunnel and trigger finger, RUTH KNEES AND ANKLES ARTHROSCOPY, ruth cataracts Sleeve Past Anesthesia/Blood Transfusion Reactions: Motion Sickness Past Psychological History: Anxiety, Depression Smoking Status: Former smoker Past Alcohol Use History: None Reported Past Drug Use History: None Reported - Past Family History Mother Family Medical History: Diabetes Mellitus, Renal Disease Additional Family Medical History / Comment(s): Mother is 80yrs old. Father Family Medical History: Cancer, COPD Additional Family Medical History / Comment(s): PROSTATE and SKIN cancer. at 82 of COPD. Brother(s) Family Medical History: Cancer Additional Family Medical History / Comment(s): PROSTATE, skin <Estrada Salazar - Last Filed: 04/16/17 20:59> General Exam Limitations: no limitations <Estrada Salazar - Last Filed: 04/16/17 20:59> <Keyon Peralta - Last Filed: 04/16/17 23:12> - General Exam Comments Initial Comments: GENERAL: Patient is well-developed and well-nourished. Patient is nontoxic and well- hydrated and is in mild distress. ENT: Neck is soft and supple. No significant lymphadenopathy is noted. Oropharynx is clear. Moist mucous membranes. Neck has full range of motion without eliciting any pain. EYES: The sclera were anicteric and conjunctiva were pink and moist. Extraocular movements were intact and pupils were equal round and reactive to light. Eyelids were unremarkable. PULMONARY: Unlabored respirations. Good breath sounds bilaterally. No audible rales rhonchi or wheezing was noted. CARDIOVASCULAR: There is a regular rate and rhythm without any murmurs gallops or rubs. ABDOMEN: Soft and nontender with normal bowel sounds. No palpable organomegaly was noted. There is no palpable pulsatile mass. SKIN: Patient's skin is very clammy. NEUROLOGIC: Patient is alert and oriented x3. Cranial nerves II through XII are grossly intact. Motor and sensory are also intact. Normal speech, volume and content. Symmetrical smile. MUSCULOSKELETAL: Normal extremities with adequate strength and full range of motion. No lower extremity swelling or edema. No calf tenderness. LYMPHATICS: No significant lymphadenopathy is noted PSYCHIATRIC: Normal psychiatric evaluation. (Estrada Salazar) Medical Decision Making - Lab Data Result diagrams: 04/16/17 19:45 04/16/17 19:45 <Estrada Salazar - Last Filed: 04/16/17 20:59> - Lab Data Result diagrams: 04/16/17 19:45 04/16/17 19:45 <Keyon Peralta - Last Filed: 04/16/17 23:12> - Medical Decision Making EKG shows normal sinus rhythm at 60 bpm KS interval 254 QRS is under QT intervals 464 QTC is 464. Patient's EKG shows no ST segment elevation or depression or T wave abnormalities are noted Dr. Galvez will be taking over the care of this patient at 9 PM (Estrada Salazar) Receive this patient has a sign out, pending the result of the computed tomography scan, with the understanding that she was to be admitted for telemetry monitoring and serial cardiac enzymes. Discussed case with admitting physician and results with patient. Orders written. (Keyon Peralta) - Lab Data Lab Results 04/16/17 04/16/17 04/16/17 Range/Units 19:19 19:45 19:45 WBC 6.7 (3.8-10.6) k/uL RBC 4.19 (3.80-5.40) m/uL Hgb 13.1 (11.4-16.0) gm/dL Hct 38.7 (34.0-46.0) % MCV 92.3 (80.0-100.0) fL MCH 31.3 (25.0-35.0) pg MCHC 33.9 (31.0-37.0) g/dL RDW 14.0 (11.5-15.5) % Plt Count 161 (150-450) k/uL Neutrophils % 47 % Lymphocytes % 45 % Monocytes % 4 % Eosinophils % 2 % Basophils % 1 % Neutrophils # 3.2 (1.3-7.7) k/uL Lymphocytes # 3.0 (1.0-4.8) k/uL Monocytes # 0.2 (0-1.0) k/uL Eosinophils # 0.1 (0-0.7) k/uL Basophils # 0.0 (0-0.2) k/uL PT (9.0-12.0) sec INR (<1.2) APTT (22.0-30.0) sec D-Dimer (<0.60) mg/L FEU Sodium (137-145) mmol/L Potassium (3.5-5.1) mmol/L Chloride (98-107) mmol/L Carbon Dioxide (22-30) mmol/L Anion Gap mmol/L BUN (7-17) mg/dL Creatinine (0.52-1.04) mg/dL Est GFR (MDRD) Af Amer (>60 ml/min/1.73 sqM) Est GFR (MDRD) Non-Af (>60 ml/min/1.73 sqM) Glucose (74-99) mg/dL POC Glucose (mg/dL) 82 (75-99) mg/dL POC Glu Cmm Technician ID Nannette Davis Calcium (8.4-10.2) mg/dL Magnesium (1.6-2.3) mg/dL Total Bilirubin (0.2-1.3) mg/dL AST (14-36) U/L ALT (9-52) U/L Alkaline Phosphatase (38-126) U/L Total Creatine Kinase 58 (30-135) U/L CK-MB (CK-2) 0.8 (0.0-2.4) ng/mL CK-MB (CK-2) Rel Index 1.4 Troponin I <0.012 (0.000-0.034) ng/mL Total Protein (6.3-8.2) g/dL Albumin (3.5-5.0) g/dL Urine Color Urine Appearance (Clear) Urine pH (5.0-8.0) Ur Specific [place] (1.001-1.035) Urine Protein (Negative) Urine Glucose (UA) (Negative) Urine Ketones (Negative) Urine Blood (Negative) Urine Nitrite (Negative) Urine Bilirubin (Negative) Urine Urobilinogen (<2.0) mg/dL Ur Leukocyte Esterase (Negative) Urine RBC (0-5) /hpf Urine WBC (0-5) /hpf Urine Bacteria (None) /hpf Urine Mucus (None) /hpf 04/16/17 04/16/17 04/16/17 Range/Units 19:45 19:45 20:43 WBC (3.8-10.6) k/uL RBC (3.80-5.40) m/uL Hgb (11.4-16.0) gm/dL Hct (34.0-46.0) % MCV (80.0-100.0) fL MCH (25.0-35.0) pg MCHC (31.0-37.0) g/dL RDW (11.5-15.5) % Plt Count (150-450) k/uL Neutrophils % % Lymphocytes % % Monocytes % % Eosinophils % % Basophils % % Neutrophils # (1.3-7.7) k/uL Lymphocytes # (1.0-4.8) k/uL Monocytes # (0-1.0) k/uL Eosinophils # (0-0.7) k/uL Basophils # (0-0.2) k/uL PT 10.3 (9.0-12.0) sec INR 1.0 (<1.2) APTT 25.1 (22.0-30.0) sec D-Dimer 0.78 H (<0.60) mg/L FEU Sodium 143 (137-145) mmol/L Potassium 3.8 (3.5-5.1) mmol/L Chloride 109 H (98-107) mmol/L Carbon Dioxide 22 (22-30) mmol/L Anion Gap 12 mmol/L BUN 24 H (7-17) mg/dL Creatinine 0.60 (0.52-1.04) mg/dL Est GFR (MDRD) Af Amer >60 (>60 ml/min/1.73 sqM) Est GFR (MDRD) Non-Af >60 (>60 ml/min/1.73 sqM) Glucose 88 (74-99) mg/dL POC Glucose (mg/dL) (75-99) mg/dL POC Glu Cmm Technician ID Calcium 9.5 (8.4-10.2) mg/dL Magnesium 1.9 (1.6-2.3) mg/dL Total Bilirubin 0.5 (0.2-1.3) mg/dL AST 33 (14-36) U/L ALT 43 (9-52) U/L Alkaline Phosphatase 71 (38-126) U/L Total Creatine Kinase (30-135) U/L CK-MB (CK-2) (0.0-2.4) ng/mL CK-MB (CK-2) Rel Index Troponin I (0.000-0.034) ng/mL Total Protein 7.1 (6.3-8.2) g/dL Albumin 4.4 (3.5-5.0) g/dL Urine Color Yellow Urine Appearance Clear (Clear) Urine pH 5.0 (5.0-8.0) Ur Specific [place] 1.024 (1.001-1.035) Urine Protein Negative (Negative) Urine Glucose (UA) Negative (Negative) Urine Ketones Negative (Negative) Urine Blood Negative (Negative) Urine Nitrite Negative (Negative) Urine Bilirubin Negative (Negative) Urine Urobilinogen <2.0 (<2.0) mg/dL Ur Leukocyte Esterase Moderate H (Negative) Urine RBC 2 (0-5) /hpf Urine WBC 20 H (0-5) /hpf Urine Bacteria Rare H (None) /hpf Urine Mucus Rare H (None) /hpf Disposition <Estrada Salazar - Last Filed: 04/16/17 20:59> <Keyon Peralta - Last Filed: 04/16/17 23:12> Clinical Impression: Diaphoresis, Angina pectoris Disposition: ADMITTED IP TO THIS HOSP Condition: Fair Referrals: Aquilino Sow DO [Primary Care Provider] - 1-2 days
[2017-04-16 20:01] LABS: Basophils % (A) 1 %; CH 31.3; CHCM 34.1; Eosinophils # (A) 0.1 k/uL (0-0.7); Eosinophils % (A) 2 %; HCT 38.7 % (34.0-46.0); HDW 2.62; HGB 13.1 gm/dL (11.4-16.0); Luc # (Auto) 0.14; Luc % (Auto) 2; Lymphocytes % (A) 45 %; MCH 31.3 pg (25.0-35.0); MCHC 33.9 g/dL (31.0-37.0); MCV 92.3 fL (80.0-100.0); Mean Platelet Volume 7.9; Monocytes # (A) 0.2 k/uL (0-1.0); Monocytes % (A) 4 %; Neutrophils # (A) 3.2 k/uL (1.3-7.7); Neutrophils % (A) 47 %; RBC 4.19 m/uL (3.80-5.40); WBC 6.7 k/uL (3.8-10.6); WBC (Perox) 6.87
--- NOTE | 2017-04-16 20:27 | XR ---
EXAMINATION TYPE: XR chest 2V DATE OF EXAM: 04/16/2017 COMPARISON: 04/24/2016 HISTORY: Weakness TECHNIQUE: Frontal and lateral views of the chest are obtained. FINDINGS: There is no heart failure nor confluent pneumonic infiltrate. There are no hilar masses. T here are chest leads. Thoracic aorta shows mild atheromatous change. There is a plate with screws fix ing the mid thoracic spine. Left thoracotomy defect is noted. IMPRESSION: Previous surgery. No active cardiopulmonary disease. No change.
[2017-04-16 20:31] LABS: ALT 43 U/L (9-52); AST 33 U/L (14-36); Alkaline Phosphatase 71 U/L (38-126); Anion Gap 12 mmol/L; Blood Urea Nitrogen 24 mg/dL (7-17); Calcium 9.5 mg/dL (8.4-10.2); Carbon Dioxide 22 mmol/L (22-30); Chloride 109 mmol/L (98-107); Creatine Kinase 58 U/L (30-135); Glucose 88 mg/dL (74-99); Magnesium 1.9 mg/dL (1.6-2.3); Non-African American GFR(MDRD) >60 (>60 ml/min/1.73 sqM); Potassium 3.8 mmol/L (3.5-5.1); Sodium 143 mmol/L (137-145); Total Bilirubin 0.5 mg/dL (0.2-1.3); Total Protein 7.1 g/dL (6.3-8.2)
[2017-04-16 20:37] LABS: Partial Thromboplastin Time 25.1 sec (22.0-30.0); Prothrombin Time 10.3 sec (9.0-12.0)
[2017-04-16 20:43] LABS: Creatine Kinase MB 0.8 ng/mL (0.0-2.4); Troponin I <0.012 ng/mL (0.000-0.034)
[2017-04-16 20:53] LABS: Appearance,Urine Clear (Clear); Bacteria,Urine Rare /hpf; Bilirubin,Urine Negative (Negative); Glucose,Urine (UA) Negative (Negative); Ketones,Urine Negative (Negative); Leukocyte Esterase,Urine Moderate (Negative); Mucus,Urine Rare /hpf; Nitrite,Urine Negative (Negative); Particle Count 2125; Protein,Urine Negative (Negative); RBC,Urine 2 /hpf (0-5); Specific Gravity,Urine 1.024 (1.001-1.035); UA Billing (MACRO vs. MICRO) MICRO; Urobilinogen,Urine <2.0 mg/dL (<2.0); WBC,Urine 20 /hpf (0-5)
[2017-04-16] MEDS ORDERED: RX INFO: IV CONTRAST WAS GIVEN 1 EACH MISC MISCELLANE PRN (20:59)
[2017-04-16 22:37] VITALS: RESP 16
--- NOTE | 2017-04-16 22:47 | CT ---
EXAM: CT Angiography Chest With Intravenous Contrast CLINICAL HISTORY: Reason: Pain TECHNIQUE: Axial computed tomographic angiography images of the chest with intravenous contrast using pulmonary embolism protocol. CTDI is 48.2 mGy and DLP is 387.3 mGy-cm This CT exam was performed using one or more of the following dose reduction techniques: automated exposure control, adjustment of the mA and/or kV according to patient size, and/or use of iterative reconstruction technique. MIP reconstructed images were created and reviewed. COMPARISON: 12/31/15 FINDINGS: There is no pulmonary embolism. No aortic dissection. Coronary atherosclerosis. No pulmonary edema. Redemonstrated trace left pleural effusion. Left greater than right base scarring/atelectasis has decreased in the interval. Interval left rib resections and spinal fusion. Presumed gastric sleeve again noted IMPRESSION: No PE. CAD. Trace left pleural effusion again noted. Incidental findings as detailed above
[2017-04-16] MEDS ORDERED: NITROGLYCERIN SL TABS 0.4 MG TAB SUBLINGUAL PRN (23:07)
[2017-04-16] MEDS ORDERED: NYSTATIN 100,000 UNIT/GM OINT 30 GM TUBE TOPICAL PRN (23:10)
[2017-04-16] MEDS ORDERED: TRIAMCINOLONE 0.1% CREAM 80 GM TUBE TOPICAL PRN (23:10)
[2017-04-16] MEDS ORDERED: oxyCODONE ER 15 MG TAB.ER.12H PO PRN (23:10)
[2017-04-16] MEDS ORDERED: SODIUM CHLORIDE 0.9% 1,000 ML IV SCH (23:15)
[2017-04-17 00:39] VITALS: BMI 30.7
[2017-04-17 02:29] LABS: Creatine Kinase 42 U/L (30-135)
[2017-04-17 02:42] LABS: Creatine Kinase MB 0.6 ng/mL (0.0-2.4); Troponin I <0.012 ng/mL (0.000-0.034)
[2017-04-17] MEDS: LEVOTHYROXINE 88 MCG TAB PO SCH ×2 (06:52→08:15)
[2017-04-17 07:09] VITALS: BP 143/83; PULSE 53; TEMP 97.4
[2017-04-17] MEDS ORDERED: MULTIVITAMINS, THERA 1 EACH TAB PO SCH (09:00)
[2017-04-17] MEDS ORDERED: DULoxetine HCL 30 MG CAPSULE.DR PO SCH (09:00)
[2017-04-17] MEDS ORDERED: CALCIUM CARB-VIT D 500MG-200UN 1 EACH TAB PO SCH (09:00)
[2017-04-17] MEDS ORDERED: LISINOPRIL-HCTZ 20-25 MG 1 EACH TAB PO SCH (09:00)
[2017-04-17] MEDS ORDERED: ASPIRIN 325 MG TAB PO SCH (09:00)
[2017-04-17] MEDS ORDERED: HEPARIN SODIUM,PORCINE 5,000 UNIT/ML 1 ML VIAL SQ SCH (09:00)
[2017-04-17 09:06] LABS: Cholesterol 152 mg/dL (<200); HDL Cholesterol 74 mg/dL (40-60)
[2017-04-17] MEDS ORDERED: DOBUTamine DRIP for NUC MED 500 MG in DEXTROSE/WATER 1 250ML.BAG IV ONE (09:27)
[2017-04-17 09:46] LABS: Creatine Kinase 41 U/L (30-135)
[2017-04-17 09:57] LABS: Creatine Kinase MB 0.7 ng/mL (0.0-2.4); Troponin I <0.012 ng/mL (0.000-0.034)
--- NOTE | 2017-04-17 09:57 | P.CRDCN ---
History of Present Illness History of present illness: Patient interviewed and examined. Admitted with symptoms of nausea and sweating pounding and palpitations. Blood pressure elevated. Normally in the normal range on lisinopril hydrochlorothiazide. Recently treated with steroids. Stopped about 3 weeks back Examination is normal. Blood pressure mildly elevated but has not received her antihypertensive therapy this morning Cardiac enzymes are normal ECG is normal LDL 66 Electrolytes normal Mildly abnormal d-dimer is but no evidence for pulmonary embolus on CT per the report Plan Low salt diet Continue antihypertensive therapy Exercise stress echo today Home blood pressure monitoring If blood pressure is elevated then outpatient maximization of medications Follow-up with PCP and cardiology/Dr. Goodman as an outpatient Past Medical History Past Medical History: Eye Disorder, Fibromyalgia, Hypertension, Liver Disease, Osteoarthritis (OA), Rheumatoid Arthritis (RA), Skin Disorder, Sleep Apnea/CPAP/ BIPAP, Thyroid Disorder Additional Past Medical History / Comment(s): Hepatitis C - in remission, neuorpathy bilateral hands and feet,IBS, hx colitis, frequent headaches, varicose veins bilaterally, dermatitis,hx psoriasis, chronic UTI's, raymauds- hands and feet, glaucoma bilaterally, hypothyroid. bariatric sleeve 12-27-15 History of Any Multi-Drug Resistant Organisms: None Reported Past Surgical History: Appendectomy, Back Surgery, Bariatric Surgery, Orthopedic Surgery, Tonsillectomy Additional Past Surgical History / Comment(s): 12/27/15 laparoscopic sleeve gastrectomy with EGD. Other surgical hx: EGD/colonoscopy, nasal surgery, left hand-tendon surgery in thumb with carpal tunnel and trigger finger, RUTH KNEES AND ANKLES ARTHROSCOPY, ruth cataracts Sleeve Past Anesthesia/Blood Transfusion Reactions: Motion Sickness Past Psychological History: Anxiety, Depression Additional Psychological History / Comment(s): BORDERLINE PERSONALITY DISORDER, clausterphobia. Pt resides alone. She drives. She is seen at [facility]. She states her psych meds work well for her. Smoking Status: Former smoker Past Alcohol Use History: None Reported Additional Past Alcohol Use History / Comment(s): quit smoking 28 yrs ago, smoked for 14 yrs. recovering alcoholic Past Drug Use History: None Reported Additional Drug Use History / Comment(s): IV DRUG USER IN PAST, CLEAN SINCE 1985 - Past Family History Mother Family Medical History: Diabetes Mellitus, Renal Disease Additional Family Medical History / Comment(s): Mother is 80yrs old. Father Family Medical History: Cancer, COPD Additional Family Medical History / Comment(s): PROSTATE and SKIN cancer. at 82 of COPD. Brother(s) Family Medical History: Cancer Additional Family Medical History / Comment(s): PROSTATE, skin Medications and Allergies Home Medications Medication Instructions Recorded Confirmed Type Levothyroxine Sodium [Synthroid] 88 mcg PO DAILY 12/03/13 04/16/17 History Lisinopril-Hctz 20-25 mg 1 tab PO DAILY 12/03/13 04/16/17 History [Zestoretic 20-25] Fluticasone Nasal [place] [Flonase 1 - 2 spray NASAL DAILY PRN 12/29/14 04/16/17 History Nasal [place]] Nystatin 100,000 Unit/gm Oint 1 applic TOPICAL DAILY PRN 12/29/14 04/16/17 History [Mycostatin Oint] Montelukast Sodium [Singulair] 10 mg PO HS 12/18/15 04/16/17 History Triamcinolone 0.1% Cream [Kenalog] 1 applic TOPICAL DAILY PRN 12/18/15 04/16/17 History Multivitamins, Thera [Multivitamin] 1 tab PO DAILY 04/24/16 04/16/17 History Calcium Carbonate/Vitamin D3 1 tab PO BID 06/18/16 04/16/17 History [Calcium 600-Vit D3 200 Tablet] DULoxetine HCL [Cymbalta] 90 mg PO DAILY 04/16/17 04/16/17 History oxyCODONE ER [OxyCONTIN 15MG E.R] 15 mg PO Q12HR PRN 04/16/17 04/16/17 History Allergies Allergy/AdvReac Type Severity Reaction Status Date / Time adhesive tape Allergy Unknown Verified 04/16/17 20:20 lamotrigine [From Lamictal] Allergy Rash/Hives Verified 04/16/17 20:17 Sulfa (Sulfonamide Allergy Unknown Verified 04/16/17 20:17 Antibiotics) Physical Exam Vitals: Vital Signs Temp Pulse Pulse Pulse Pulse Pulse Resp 04/17/17 08:00 53 L 16 04/17/17 07:08 97.4 F L 53 L 16 04/17/17 04:53 04/17/17 03:06 97.9 F 51 L 16 04/17/17 00:30 04/17/17 00:29 97.8 F 61 16 04/16/17 23:37 98.1 F 61 16 04/16/17 22:00 16 04/16/17 20:22 18 04/16/17 19:52 57 L 20 04/16/17 19:40 64 68 59 L 18 04/16/17 19:33 20 04/16/17 19:15 96.7 F L 61 24 BP BP BP BP BP Pulse Ox 04/17/17 08:00 04/17/17 07:08 143/83 93 L 04/17/17 04:53 04/17/17 03:06 154/74 94 L 04/17/17 00:30 04/17/17 00:29 147/79 93 L 04/16/17 23:37 160/79 99 04/16/17 22:00 04/16/17 20:22 04/16/17 19:52 151/67 98 04/16/17 19:40 172/77 151/67 159/70 100 04/16/17 19:33 04/16/17 19:15 183/90 97 Intake and Output 04/16/17 04/17/17 04/17/17 22:59 06:59 14:59 Other: Voiding Method Toilet Weight 86.183 kg 86.183 kg Results 04/16/17 19:45 04/16/17 19:45 Cardiac Enzymes 04/16/17 04/16/17 04/17/17 Range/Units 19:45 19:45 01:37 AST 33 (14-36) U/L CK-MB (CK-2) 0.8 0.6 (0.0-2.4) ng/mL Troponin I <0.012 <0.012 (0.000-0.034) ng/mL Coagulation 04/16/17 Range/Units 19:45 PT 10.3 (9.0-12.0) sec APTT 25.1 (22.0-30.0) sec Lipids 04/17/17 Range/Units 07:49 Triglycerides 60 (<150) mg/dL Cholesterol 152 (<200) mg/dL HDL Cholesterol 74 H (40-60) mg/dL CBC 04/16/17 Range/Units 19:45 WBC 6.7 (3.8-10.6) k/uL RBC 4.19 (3.80-5.40) m/uL Hgb 13.1 (11.4-16.0) gm/dL Hct 38.7 (34.0-46.0) % Plt Count 161 (150-450) k/uL Comprehensive Metabolic Panel 04/16/17 Range/Units 19:45 Sodium 143 (137-145) mmol/L Potassium 3.8 (3.5-5.1) mmol/L Chloride 109 H (98-107) mmol/L Carbon Dioxide 22 (22-30) mmol/L BUN 24 H (7-17) mg/dL Creatinine 0.60 (0.52-1.04) mg/dL Glucose 88 (74-99) mg/dL Calcium 9.5 (8.4-10.2) mg/dL AST 33 (14-36) U/L ALT 43 (9-52) U/L Alkaline Phosphatase 71 (38-126) U/L Total Protein 7.1 (6.3-8.2) g/dL Albumin 4.4 (3.5-5.0) g/dL Current Medications Generic Name Dose Route Start Last Admin Trade Name Freq PRN Reason Stop Dose Admin Aspirin 325 mg 04/17/17 09:00 04/17/17 08:15 Aspirin PO 325 mg DAILY [facility] Administration Calcium Carbonate 1 each 04/17/17 09:00 04/17/17 08:15 Oscal 500+D PO 1 each BID [facility] Administration Duloxetine HCl 90 mg 04/17/17 09:00 04/17/17 08:15 Cymbalta PO 90 mg DAILY [facility] Administration Lisinopril/HCTZ 1 each 04/17/17 09:00 04/17/17 09:04 Zestoretic 20-25 PO 1 each DAILY [facility] Administration Heparin Sodium (Porcine) 5,000 unit 04/17/17 09:00 04/17/17 08:17 Heparin SQ 5,000 unit TID BRIS[facility] Administration Sodium Chloride 1,000 mls @ 20 mls/hr 04/16/17 23:15 04/17/17 07:57 Saline 0.9% IV Not Given .Q24H [facility] Levothyroxine Sodium 88 mcg 04/17/17 06:30 04/17/17 08:15 Synthroid PO 88 mcg 0630 [facility] Administration Miscellaneous Information 1 each 04/16/17 20:59 Rx Info: Iv Contrast Was Given MISCELLANE 04/18/17 20:59 DAILY PRN Per Protocol Montelukast Sodium 10 mg 04/17/17 21:00 Singulair PO HS [facility] Multivitamins 1 each 04/17/17 09:00 04/17/17 08:15 Theragran PO 1 each DAILY [facility] Administration Nitroglycerin 0.4 mg 04/16/17 23:07 Nitrostat SUBLINGUAL Q5M PRN Chest Pain Nystatin 1 applic 04/16/17 23:10 Mycostatin Oint TOPICAL DAILY PRN Skin Irritation Oxycodone HCl 15 mg 04/16/17 23:10 04/17/17 09:08 Oxycontin 15mg E.R. PO 15 mg Q12HR PRN Administration Pain Triamcinolone Acetonide 1 applic 04/16/17 23:10 Kenalog TOPICAL DAILY PRN DERMATITIS Intake and Output 04/16/17 04/17/17 04/17/17 22:59 06:59 14:59 Other: Voiding Method Toilet Weight 86.183 kg 86.183 kg 04/16/17 19:45 04/16/17 19:45
--- NOTE | 2017-04-17 12:15 | P.CRDCN ---
History of Present Illness Consult date: 04/17/17 History of present illness: This is a 61 pleasant female. Past medical history significant for hypertension, hypothyroidism, hepatitis C and depression and anxiety. She presented to the hospital with complaints of acute onset of extreme diaphoresis. She states she was sitting in a meeting and became extremely diaphoretic, short of breath and dizzy. She states she was not feeling anxious at the time or under any sort of stress. She denies any chest pain associated with these symptoms. She also felt numbness and tingling down the left arm and the entire left side of the body. Her blood pressure upon arrival was 183/90 with a heart rate of 61. She is maintained on Lisinopril\HCTZ 20/25 mg daily. D-dimer elevated 0.78. CTA negative for pulmonary embolism. Troponin negative 2. Blood pressure this morning 143/83 with a heart rate of 53. EKG indicates sinus mechanism with no acute ST or T-wave abnormalities. She states she saw Dr. Aragon last year prior to weight loss surgery for cardiac clearance and has not seen him since for any reason. She underwent a stress test lexiscan 06/2015 that was negative and echocardiogram indicated preserved LV function with EF greater than 60%. Review of Systems Extensive review of systems performed, negative except mentioned in HPI. Past Medical History Past Medical History: Eye Disorder, Fibromyalgia, Hypertension, Liver Disease, Osteoarthritis (OA), Rheumatoid Arthritis (RA), Skin Disorder, Sleep Apnea/CPAP/ BIPAP, Thyroid Disorder Additional Past Medical History / Comment(s): Hepatitis C - in remission, neuorpathy bilateral hands and feet,IBS, hx colitis, frequent headaches, varicose veins bilaterally, dermatitis,hx psoriasis, chronic UTI's, raymauds- hands and feet, glaucoma bilaterally, hypothyroid. bariatric sleeve 12-27-15 History of Any Multi-Drug Resistant Organisms: None Reported Past Surgical History: Appendectomy, Back Surgery, Bariatric Surgery, Orthopedic Surgery, Tonsillectomy Additional Past Surgical History / Comment(s): 12/27/15 laparoscopic sleeve gastrectomy with EGD. Other surgical hx: EGD/colonoscopy, nasal surgery, left hand-tendon surgery in thumb with carpal tunnel and trigger finger, RUTH KNEES AND ANKLES ARTHROSCOPY, ruth cataracts Sleeve Past Anesthesia/Blood Transfusion Reactions: Motion Sickness Past Psychological History: Anxiety, Depression Additional Psychological History / Comment(s): BORDERLINE PERSONALITY DISORDER, clausterphobia. Pt resides alone. She drives. She is seen at [facility]. She states her psych meds work well for her. Smoking Status: Former smoker Past Alcohol Use History: None Reported Additional Past Alcohol Use History / Comment(s): quit smoking 28 yrs ago, smoked for 14 yrs. recovering alcoholic Past Drug Use History: None Reported Additional Drug Use History / Comment(s): IV DRUG USER IN PAST, CLEAN SINCE 1985 - Past Family History Mother Family Medical History: Diabetes Mellitus, Renal Disease Additional Family Medical History / Comment(s): Mother is 80yrs old. Father Family Medical History: Cancer, COPD Additional Family Medical History / Comment(s): PROSTATE and SKIN cancer. at 82 of COPD. Brother(s) Family Medical History: Cancer Additional Family Medical History / Comment(s): PROSTATE, skin Medications and Allergies Home Medications Medication Instructions Recorded Confirmed Type Levothyroxine Sodium [Synthroid] 88 mcg PO DAILY 12/03/13 04/16/17 History Lisinopril-Hctz 20-25 mg 1 tab PO DAILY 12/03/13 04/16/17 History [Zestoretic 20-25] Fluticasone Nasal [place] [Flonase 1 - 2 spray NASAL DAILY PRN 12/29/14 04/16/17 History Nasal [place]] Nystatin 100,000 Unit/gm Oint 1 applic TOPICAL DAILY PRN 12/29/14 04/16/17 History [Mycostatin Oint] Montelukast Sodium [Singulair] 10 mg PO HS 12/18/15 04/16/17 History Triamcinolone 0.1% Cream [Kenalog] 1 applic TOPICAL DAILY PRN 12/18/15 04/16/17 History Multivitamins, Thera [Multivitamin] 1 tab PO DAILY 04/24/16 04/16/17 History Calcium Carbonate/Vitamin D3 1 tab PO BID 06/18/16 04/16/17 History [Calcium 600-Vit D3 200 Tablet] DULoxetine HCL [Cymbalta] 90 mg PO DAILY 04/16/17 04/16/17 History oxyCODONE ER [OxyCONTIN 15MG E.R] 15 mg PO Q12HR PRN 04/16/17 04/16/17 History Allergies Allergy/AdvReac Type Severity Reaction Status Date / Time adhesive tape Allergy Unknown Verified 04/16/17 20:20 lamotrigine [From Lamictal] Allergy Rash/Hives Verified 04/16/17 20:17 Sulfa (Sulfonamide Allergy Unknown Verified 04/16/17 20:17 Antibiotics) Physical Exam Vitals: Vital Signs Temp Pulse Pulse Pulse Pulse Pulse Resp 04/17/17 07:08 97.4 F L 53 L 16 04/17/17 04:53 16 04/17/17 03:06 97.9 F 51 L 16 04/17/17 00:30 16 04/17/17 00:29 97.8 F 61 16 04/16/17 23:37 98.1 F 61 16 04/16/17 22:00 16 04/16/17 20:22 18 04/16/17 19:52 57 L 20 04/16/17 19:40 64 68 59 L 18 04/16/17 19:33 20 04/16/17 19:15 96.7 F L 61 24 BP BP BP BP BP Pulse Ox 04/17/17 07:08 143/83 93 L 04/17/17 04:53 04/17/17 03:06 154/74 94 L 04/17/17 00:30 04/17/17 00:29 147/79 93 L 04/16/17 23:37 160/79 99 04/16/17 22:00 04/16/17 20:22 04/16/17 19:52 151/67 98 04/16/17 19:40 172/77 151/67 159/70 100 04/16/17 19:33 04/16/17 19:15 183/90 97 Intake and Output 04/16/17 04/17/17 04/17/17 22:59 06:59 14:59 Other: Weight 86.183 kg 86.183 kg GENERAL: This is a 61-year-old female in no apparent distress at the time of my examination. HEENT: Head is atraumatic, normocephalic. Pupils are equal, round. Sclerae anicteric. Conjunctivae are clear. Mucous membranes of the mouth are moist. Neck is supple. There is no jugular venous distention. No carotid bruit is heard. LUNGS: Clear to auscultation no wheezes, rales or rhonchi. No chest wall tenderness is noted on palpation or with deep breathing. HEART: Regular rate and rhythm without murmurs, rubs or gallops. S1 and S2 heard. ABDOMEN: Soft, nontender. Bowel sounds are heard. No organomegaly noted. EXTREMITIES: 2+ peripheral pulses with no evidence of peripheral edema and no calf tenderness noted. NEUROLOGIC: Patient is awake, alert and oriented x3. Results 04/16/17 19:45 04/16/17 19:45 Cardiac Enzymes 04/16/17 04/16/17 04/17/17 Range/Units 19:45 19:45 01:37 AST 33 (14-36) U/L CK-MB (CK-2) 0.8 0.6 (0.0-2.4) ng/mL Troponin I <0.012 <0.012 (0.000-0.034) ng/mL Coagulation 04/16/17 Range/Units 19:45 PT 10.3 (9.0-12.0) sec APTT 25.1 (22.0-30.0) sec CBC 04/16/17 Range/Units 19:45 WBC 6.7 (3.8-10.6) k/uL RBC 4.19 (3.80-5.40) m/uL Hgb 13.1 (11.4-16.0) gm/dL Hct 38.7 (34.0-46.0) % Plt Count 161 (150-450) k/uL Comprehensive Metabolic Panel 04/16/17 Range/Units 19:45 Sodium 143 (137-145) mmol/L Potassium 3.8 (3.5-5.1) mmol/L Chloride 109 H (98-107) mmol/L Carbon Dioxide 22 (22-30) mmol/L BUN 24 H (7-17) mg/dL Creatinine 0.60 (0.52-1.04) mg/dL Glucose 88 (74-99) mg/dL Calcium 9.5 (8.4-10.2) mg/dL AST 33 (14-36) U/L ALT 43 (9-52) U/L Alkaline Phosphatase 71 (38-126) U/L Total Protein 7.1 (6.3-8.2) g/dL Albumin 4.4 (3.5-5.0) g/dL Current Medications Generic Name Dose Route Start Last Admin Trade Name Freq PRN Reason Stop Dose Admin Aspirin 325 mg 04/17/17 09:00 Aspirin PO DAILY [facility] Calcium Carbonate 1 each 04/17/17 09:00 Oscal 500+D PO BID [facility] Duloxetine HCl 90 mg 04/17/17 09:00 Cymbalta PO DAILY [facility] Lisinopril/HCTZ 1 each 04/17/17 09:00 Zestoretic 20-25 PO DAILY [facility] Heparin Sodium (Porcine) 5,000 unit 04/17/17 09:00 Heparin SQ TID [facility] Sodium Chloride 1,000 mls @ 20 mls/hr 04/16/17 23:15 04/17/17 07:57 Saline 0.9% IV Not Given .Q24H [facility] Levothyroxine Sodium 88 mcg 04/17/17 06:30 [place] 0630 [facility] Miscellaneous Information 1 each 04/16/17 20:59 Rx Info: Iv Contrast Was Given MISCELLANE 04/18/17 20:59 DAILY PRN Per Protocol Montelukast Sodium 10 mg 04/17/17 21:00 Singulair PO HS [facility] Multivitamins 1 each 04/17/17 09:00 Theragran PO DAILY [facility] Nitroglycerin 0.4 mg 04/16/17 23:07 Nitrostat SUBLINGUAL Q5M PRN Chest Pain Nystatin 1 applic 04/16/17 23:10 Mycostatin Oint TOPICAL DAILY PRN Skin Irritation Oxycodone HCl 15 mg 04/16/17 23:10 Oxycontin 15mg E.R. PO Q12HR PRN Pain Triamcinolone Acetonide 1 applic 04/16/17 23:10 Kenalog TOPICAL DAILY PRN DERMATITIS Intake and Output 04/16/17 04/17/17 04/17/17 22:59 06:59 14:59 Other: Weight 86.183 kg 86.183 kg 04/16/17 19:45 04/16/17 19:45 EKG Interpretations (text) EKG indicates sinus mechanism with no acute ST or T-wave abnormalities. Assessment and Plan Plan: ASSESSMENT 1. Chest pain, atypical 2. Essential hypertension PLAN We recommend a low salt diet, continue current antihypertensive therapy, home blood pressure monitoring with journal. We will order dobutamine stress echo to rule out acute coronary event. If this is normal she is stable for discharge from a cardiac standpoint. She is to follow up with her PCP upon discharge and see Dr. Aragon in 2-3 weeks. Nurse Practitioner note has been reviewed, I agree with a documented findings and plan of care. Patient was seen and examined.
--- NOTE | 2017-04-17 12:49 | ECHOS ---
STRESS ECHOCARDIOGRAM DATE OF SERVICE: 04/17/2017 INDICATIONS: Palpitations. MEDICATIONS:: BASELINE HEART RATE: 58 BASELINE BLOOD PRESSURE: 168/90 MAXIMUM HEART RATE: 112 MAXIMUM BLOOD PRESSURE: 187/71 85% MPHR: 135 100% MPHR: 159 METS: MAXIMUM STAGE REACHED: TOTAL EXERCISE TIME: CLINICAL INFORMATION: This is a dobutamine stress echo. Baseline heart rate 58 beats per minute. Baseline blood pressure 168/90 mmHg. Baseline 12-lead ECG showed normal sinus rhythm, nonspecific ST-T abnormalities in the lateral precordial leads. The patient received dobutamine infusion per protocol. Peak heart rate was about 112 beats per minute, which is 73% of predicted maximum heart rate for age. There was no ECG evidence for ischemia and no arrhythmias noted. The baseline 2-D echo images showed normal LV size and systolic function without any segmental wall motion abnormalities. There was a stepwise increment in overall LV contractility without developing any wall motion abnormalities. At peak dobutamine infusion, there was excellent augmentation of overall LV contractility with uniform wall thickening. At recovery, regional global LV systolic function remain normal. IMPRESSION: No ECG or echocardiographic evidence for ischemia. Excellent inotropic response throughout all the left ventricular segments with dobutamine. MMODL / IJN: [id number] /
[2017-04-17] MEDS ORDERED: CEFUROXIME 250 MG TAB PO SCH (14:00)
--- NOTE | 2017-04-17 14:34 | HP ---
HISTORY AND PHYSICAL DATE OF ADMISSION: 04/16/2017 PRESENTING COMPLAINT: Sweating. HISTORY OF PRESENTING COMPLAINT: This is a pleasant 61-year-old patient of Dr. Sow. Chronic stable medical conditions include fibromyalgia, hypertension, osteoarthritis, obstructive sleep apnea, peripheral neuropathy, irritable bowel syndrome, anxiety, depression. The patient was in a group meeting yesterday when suddenly she started sweating and felt a bit heart racing, felt a little bit nauseous, dizzy, has no cough. Just felt tired. She said that she felt like this before when she had a UTI and decided to come in because her heart was racing and was concerned about cardiac etiology. The patient's blood pressure noted to be up when she came in. The patient is very active. Denied having any panic attacks. Anxiety is well controlled. REVIEW OF SYSTEMS: CONSTITUTIONAL: Tired. HEENT: None. RESPIRATORY: As above. CARDIOVASCULAR: As above. GASTROINTESTINAL: None. GENITOURINARY: None. MUSCULOSKELETAL: Aches and pains in different joints. DERMATOLOGICAL: None. HEMATOLOGIC: None. LYMPHATIC: None. PSYCHIATRY: Anxiety controlled. NEUROLOGICAL: Peripheral neuropathy. PAST HISTORY: Fibromyalgia, hypertension, osteoarthritis, rheumatoid arthritis, obstructive sleep apnea, hepatitis C that is treated, peripheral neuropathy, irritable bowel syndrome, varicose veins, Raynaud, anxiety and depression. PAST SURGICAL HISTORY: Appendectomy, back surgery, bariatric surgery, orthopedic surgery, tonsillectomy, sleeve gastrectomy, EGD, bilateral knees and ankle arthroscopies, bilateral cataracts. PSYCH HISTORY: Anxiety and depression. SOCIAL HISTORY: Lives alone. The patient smoked about 14 years. Stopped smoking 28 years ago. The patient is a recovered alcoholic. Stopped drinking and IV drugs in 1985. FAMILY HISTORY: Diabetes and renal disease. HOME MEDICATIONS: 1. OxyContin 50 p.o. q.12 p.r.n. 2. Kenalog 1% topical daily p.r.n. 3. Mycostatin topical b.i.d. p.r.n. 4. Multivitamin 1 tab p.o. daily. 5. Singulair 10 mg q.h.s. 6. Zestoretic 1 tab p.o. daily. 7. Synthroid 88 mcg p.o. daily. 8. Flonase nasal spray, 1-2 sprays nasal daily p.r.n. 9. Cymbalta 90 mg p.o. daily. 10.Calcium 600 on vitamin D3 1 tab p.o. b.i.d. ALLERGIES: , LAMICTAL AND SULFUR. PHYSICAL EXAMINATION: Vital signs on presentation: Temperature 96.7 pulse 51, respiration 24, blood pressure 183/98, pulse ox 97% on room air. GENERAL APPEARANCE: Well built, BMI 30.7, lying in bed, comfortable. EYES: Pupils equal. Conjunctivae normal. HEENT: Oral cavity normal. NECK: JVD not raised. Mass not palpable. RESPIRATORY: Effort normal. Lungs are clear. CARDIOVASCULAR: First and second sounds normal. No edema. ABDOMEN: Soft, nontender. Liver and spleen not palpable. LYMPHATIC: No lymph palpable in the neck or axillae. PSYCHIATRY: Alert and oriented x3. Mood and affect normal. NEUROLOGICAL: Pupils equal. Cranial nerves grossly intact. Power and sensation are grossly intact. INVESTIGATIONS: White count 6.7, hemoglobin 10.1, platelets 161, potassium 3.8, BUN 24, creatinine 0.60, troponin x3 negative. UA positive for leuko esterase, WBC. EKG normal sinus rhythm. Chest CTA negative for PE. ASSESSMENT: 1. This is a patient who had episode of perspiration, heart racing, does not have any underlying anxiety, could be a manifestation of for urinary tract infection, but need to rule out cardiac cause. 2. Chronic fibromyalgia. 3. Essential hypertension. 4. Primary osteoarthritis multiple joints. 5. Bilateral rheumatoid arthritis multiple joints. 6. Obstructive sleep apnea, uses a CPAP machine. 7. Obesity, body mass index 30.7. 8. Hepatitis C treated. 9. Peripheral neuropathy causing hepatic. 10.Irritable bowel syndrome. 11.Raynaud disease. 12.Anxiety, depression, not otherwise specified, controlled. PLAN: Will correct enzymes as ordered. Home medications are reviewed. Cardiology was consulted who ordered a stress test. Care was discussed with the patient and daughter at the bedside. MMODL / IJN: [id number] /
[2017-04-17] MEDS ORDERED: MONTELUKAST 10 MG TAB PO SCH (21:00)
--- NOTE | 2017-04-18 08:14 | DS ---
DISCHARGE SUMMARY DATE OF ADMISSION: April 16, 2017. DATE OF DISCHARGE: April 17, 2017. FINAL DIAGNOSES: 1. Acute urinary tract infection. 2. Chronic fibromyalgia. 3. Essential hypertension. 4. Primary osteoarthritis multiple joints. 5. Bilateral osteoarthritis multiple joints. 6. Obstructive sleep apnea. Uses a CPAP machine. 7. Obesity, body mass index 30.7. 8. Hepatitis C treated. 9. Peripheral neuropathy. Cause unknown. 10.Irritable bowel syndrome. 11.Raynaud's disease. 12.Anxiety, depression, not otherwise specified. Controlled. HOSPITAL COURSE: This patient presented with multitude of symptoms including sweating, atypical chest discomfort. She did have a dobutamine stress echocardiogram that was negative. The patient's symptoms are felt to be from UTI. Also discussed the patient is really feeling well at the time of discharge. Afebrile. EXAM: Lungs are clear. Cardiovascular 1st and 2nd sounds normal. DISCHARGE MEDICATIONS: 1. Synthroid 88 mcg a day. 2. Flonase one or two sprays daily p.r.n. 3. Mycostatin 1 application topical daily p.r.n. 4. Singulair 10 mg p.o. q.h.s. 5. Kenalog 1 application topical daily p.r.n. 6. Multivitamin 1 tab p.o. daily. 7. Vitamin D3 600/200 1 tab p.o. b.i.d. 8. Cymbalta 90 mg p.o. daily. 9. OxyContin 15 mg p.o. q.12. 10.Ceftin 250 mg p.o. b.i.d., 5 tablets. 11.Zestoretic /.5, 1 tab p.o. b.i.d. Follow with Dr. Sow in 2 days. Follow up with Dr. Galina Aragon in two weeks. MMODL / IJN: [id number] /
== END 2017-04-17 15:14 | disposition home or self-care (01) ==
LOC: EC 18:57 → 3OBS 23:07
PROVIDERS: ADMIT Hospitalist; ATTEND Hospitalist
DX: N39.0 Urinary tract infection, site not specified (principal); M79.7 Fibromyalgia; I10 Essential (primary) hypertension; M06.9 Rheumatoid arthritis, unspecified; G47.33 Obstructive sleep apnea (adult) (pediatric); Z99.89 Dependence on other enabling machines and devices; M19.91 Primary osteoarthritis, unspecified site; B19.20 Unspecified viral hepatitis C without hepatic coma; E66.9 Obesity, unspecified; Z68.30 Body mass index [BMI] 30.0-30.9, adult; R79.89 Other specified abnormal findings of blood chemistry; E03.9 Hypothyroidism, unspecified; G62.9 Polyneuropathy, unspecified; K58.9 Irritable bowel syndrome, unspecified; I73.00 Raynaud's syndrome without gangrene; F41.9 Anxiety disorder, unspecified; F32.9 Major depressive disorder, single episode, unspecified; F60.3 Borderline personality disorder; R07.89 Other chest pain; R53.1 Weakness; R42 Dizziness and giddiness; R20.2 Paresthesia of skin; R61 Generalized hyperhidrosis; R06.02 Shortness of breath; R11.0 Nausea; R00.2 Palpitations; L40.9 Psoriasis, unspecified; L30.9 Dermatitis, unspecified; Z98.84 Bariatric surgery status; F10.21 Alcohol dependence, in remission; Z91.048 Other nonmedicinal substance allergy status; Z88.2 Allergy status to sulfonamides; Z79.899 Other long term (current) drug therapy; Z88.8 Allergy status to other drugs, medicaments and biological substances; Z87.891 Personal history of nicotine dependence; Z83.3 Family history of diabetes mellitus; Z82.5 Family history of asthma and other chronic lower respiratory diseases; Z80.42 Family history of malignant neoplasm of prostate; Z80.8 Family history of malignant neoplasm of other organs or systems
CPT/HCPCS: 36415; 71020; 71275; 80053; 80061; 81001; 82550; 82553; 83735; 84484; 85025; 85379; 85610; 85730; 87086; 93005; 93017; 93350; 96372; 99285

== ENCOUNTER 2017-04-28 12:51 | Emergency (ER) | payer MEDICARE, OTHER ==
[2017-04-28 12:54] VITALS: TEMP 98.2
[2017-04-28] MEDS ORDERED: SODIUM CHLORIDE 0.9% 1,000 ML IV STA (12:56)
--- NOTE | 2017-04-28 12:57 | ED ---
General Adult HPI - General Chief complaint: Chest Pain Stated complaint: High B/P chest heaviness Time Seen by Provider: 04/28/17 12:55 Source: patient, RN notes reviewed, old records reviewed Mode of arrival: wheelchair Limitations: no limitations - History of Present Illness Initial comments: This is a 61-year-old female to the ER for evaluation. Patient with urinary for evaluation of elevated blood pressure. Patient comes to ER at discretion of her own primary care [facility]. She was feeling a little dizzy today. Patient states her blood pressure has been running high. She does not check her blood pressure regular basis and was in the ER for elevated blood pressure 1 week ago. She states this the patient the symptoms have persisted and she does not think the medication changes that she's made at help with her blood pressure since she left the hospital. Patient denies nausea vomiting shortness of breath. Denies any other complaints. No significant chest or abdominal pain. No headaches. Patient does get occasionally dizzy with left ear taking a - Related Data Home Medications Medication Instructions Recorded Confirmed Levothyroxine Sodium [Synthroid] 88 mcg PO DAILY 12/03/13 04/28/17 Fluticasone Nasal [place] [Flonase 1 - 2 spray NASAL DAILY PRN 12/29/14 04/28/17 Nasal [place]] Nystatin 100,000 Unit/gm Oint 1 applic TOPICAL DAILY PRN 12/29/14 04/28/17 [Mycostatin Oint] Montelukast Sodium [Singulair] 10 mg PO HS 12/18/15 04/28/17 Triamcinolone 0.1% Cream [Kenalog] 1 applic TOPICAL DAILY PRN 12/18/15 04/28/17 Multivitamins, Thera [Multivitamin 1 tab PO DAILY 04/24/16 04/28/17 (formulary)] Calcium Carbonate/Vitamin D3 1 tab PO BID 06/18/16 04/28/17 [Calcium 600-Vit D3 200 Tablet] DULoxetine HCL [Cymbalta] 90 mg PO DAILY 04/16/17 04/28/17 oxyCODONE ER [OxyCONTIN] 15 mg PO Q12HR PRN 04/16/17 04/28/17 Cephalexin [Keflex] 500 mg PO QID 04/28/17 04/28/17 Previous Rx's Medication Instructions Recorded Lisinopril-Hctz 20-12.5 mg 1 tab PO BID #60 tab 04/17/17 [Zestoretic 20-12.5] Allergies Allergy/AdvReac Type Severity Reaction Status Date / Time adhesive tape Allergy Unknown Verified 04/28/17 13:35 lamotrigine [From Lamictal] Allergy Rash/Hives Verified 04/28/17 13:35 Sulfa (Sulfonamide Allergy Rash/Hives Verified 04/28/17 13:35 Antibiotics) Review of Systems ROS Statement: Those systems with pertinent positive or pertinent negative responses have been documented in the HPI. ROS Other: All systems not noted in ROS Statement are negative. Past Medical History Past Medical History: Eye Disorder, Fibromyalgia, Hypertension, Liver Disease, Osteoarthritis (OA), Rheumatoid Arthritis (RA), Skin Disorder, Sleep Apnea/CPAP/ BIPAP, Thyroid Disorder Additional Past Medical History / Comment(s): Hepatitis C - in remission, neuorpathy bilateral hands and feet,IBS, hx colitis, frequent headaches, varicose veins bilaterally, dermatitis,hx psoriasis, chronic UTI's, raymauds- hands and feet, glaucoma bilaterally, hypothyroid. bariatric sleeve 12-27-15 History of Any Multi-Drug Resistant Organisms: None Reported Past Surgical History: Appendectomy, Back Surgery, Bariatric Surgery, Orthopedic Surgery, Tonsillectomy Additional Past Surgical History / Comment(s): 12/27/15 laparoscopic sleeve gastrectomy with EGD. Other surgical hx: EGD/colonoscopy, nasal surgery, left hand-tendon surgery in thumb with carpal tunnel and trigger finger, RUTH KNEES AND ANKLES ARTHROSCOPY, ruth cataracts Sleeve Past Anesthesia/Blood Transfusion Reactions: Motion Sickness Past Psychological History: Anxiety, Depression Smoking Status: Former smoker Past Alcohol Use History: None Reported Past Drug Use History: None Reported - Past Family History Mother Family Medical History: Diabetes Mellitus, Renal Disease Additional Family Medical History / Comment(s): Mother is 80yrs old. Father Family Medical History: Cancer, COPD Additional Family Medical History / Comment(s): PROSTATE and SKIN cancer. at 82 of COPD. Brother(s) Family Medical History: Cancer Additional Family Medical History / Comment(s): PROSTATE, skin General Exam Limitations: no limitations General appearance: alert, in no apparent distress Head exam: Present: atraumatic, normocephalic, normal inspection Eye exam: Present: normal appearance, PERRL, EOMI. Absent: scleral icterus, conjunctival injection, periorbital swelling ENT exam: Present: normal exam, mucous membranes moist Neck exam: Present: normal inspection. Absent: tenderness, meningismus, lymphadenopathy Respiratory exam: Present: normal lung sounds bilaterally. Absent: respiratory distress, wheezes, rales, rhonchi, stridor Cardiovascular Exam: Present: regular rate, normal rhythm, normal heart sounds. Absent: systolic murmur, diastolic murmur, rubs, gallop, clicks GI/Abdominal exam: Present: soft, normal bowel sounds. Absent: distended, tenderness, guarding, rebound, rigid Extremities exam: Present: normal inspection, full ROM, normal capillary refill. Absent: tenderness, pedal edema, joint swelling, calf tenderness Back exam: Present: normal inspection Neurological exam: Present: alert, oriented X3, CN II-XII intact Psychiatric exam: Present: normal affect, normal mood Skin exam: Present: warm, dry, intact, normal color. Absent: rash Course Vital Signs 04/28/17 04/28/17 04/28/17 12:52 13:35 14:00 Temperature 98.2 F Pulse Rate 66 64 77 Respiratory 16 17 17 Rate Blood Pressure 159/101 151/90 153/99 O2 Sat by Pulse 99 99 100 Oximetry - Reevaluation(s) Reevaluation #1: 04/28/17 14:31 Prior ER visit including hospitalization rebooted including CT of chest as well as stress test Reevaluation #2: 04/28/17 14:31 At this point blood pressure is controlled EKG Findings - EKG Comments: EKG Findings:: EKG shows normal sinus a rate of 66, [place] 120, QRS 80, QTC 444 Medical Decision Making - Medical Decision Making 61 female at the ER for evaluation. Patient presents today for evaluation regarding episode of chest pain dizziness lightheadedness hearing. Elevated blood sugar. Patient was seen at [facility] or she was noticed to have a severely elevated blood pressure and told to come the emergency room. Patient states she was in the ER for similar symptoms about a week and a half ago. They have been episodic since she did increase her blood pressure medication has been proceeding as directed. Patient will continue to follow up with primary care, in cardiology. Patient is a symptomatically and can be discharged home - Lab Data Result diagrams: 04/28/17 13:06 04/28/17 13:06 Lab Results 04/28/17 04/28/17 04/28/17 Range/Units 13:06 13:06 13:06 WBC 5.2 (3.8-10.6) k/uL RBC 4.37 (3.80-5.40) m/uL Hgb 13.6 (11.4-16.0) gm/dL Hct 40.4 (34.0-46.0) % MCV 92.3 (80.0-100.0) fL MCH 31.2 (25.0-35.0) pg MCHC 33.8 (31.0-37.0) g/dL RDW 13.2 (11.5-15.5) % Plt Count 164 (150-450) k/uL Neutrophils % 50 % Lymphocytes % 43 % Monocytes % 4 % Eosinophils % 1 % Basophils % 0 % Neutrophils # 2.6 (1.3-7.7) k/uL Lymphocytes # 2.2 (1.0-4.8) k/uL Monocytes # 0.2 (0-1.0) k/uL Eosinophils # 0.1 (0-0.7) k/uL Basophils # 0.0 (0-0.2) k/uL PT (9.0-12.0) sec INR (<1.2) APTT (22.0-30.0) sec Sodium 141 (137-145) mmol/L Potassium 3.7 (3.5-5.1) mmol/L Chloride 102 (98-107) mmol/L Carbon Dioxide 28 (22-30) mmol/L Anion Gap 11 mmol/L BUN 25 H (7-17) mg/dL Creatinine 0.73 (0.52-1.04) mg/dL Est GFR (MDRD) Af Amer >60 (>60 ml/min/1.73 sqM) Est GFR (MDRD) Non-Af >60 (>60 ml/min/1.73 sqM) Glucose 77 (74-99) mg/dL Calcium 10.0 (8.4-10.2) mg/dL Magnesium 1.7 (1.6-2.3) mg/dL Total Bilirubin 0.6 (0.2-1.3) mg/dL AST 34 (14-36) U/L ALT 45 (9-52) U/L Alkaline Phosphatase 72 (38-126) U/L Total Creatine Kinase 66 (30-135) U/L CK-MB (CK-2) 1.3 (0.0-2.4) ng/mL CK-MB (CK-2) Rel Index 2.0 Troponin I <0.012 (0.000-0.034) ng/mL NT-Pro-B Natriuret Pep pg/mL Total Protein 7.7 (6.3-8.2) g/dL Albumin 4.7 (3.5-5.0) g/dL Lipase 228 (23-300) U/L Urine Color Urine Appearance (Clear) Urine pH (5.0-8.0) Ur Specific [place] (1.001-1.035) Urine Protein (Negative) Urine Glucose (UA) (Negative) Urine Ketones (Negative) Urine Blood (Negative) Urine Nitrite (Negative) Urine Bilirubin (Negative) Urine Urobilinogen (<2.0) mg/dL Ur Leukocyte Esterase (Negative) Urine RBC (0-5) /hpf Urine WBC (0-5) /hpf 04/28/17 04/28/17 04/28/17 Range/Units 13:06 13:06 14:06 WBC (3.8-10.6) k/uL RBC (3.80-5.40) m/uL Hgb (11.4-16.0) gm/dL Hct (34.0-46.0) % MCV (80.0-100.0) fL MCH (25.0-35.0) pg MCHC (31.0-37.0) g/dL RDW (11.5-15.5) % Plt Count (150-450) k/uL Neutrophils % % Lymphocytes % % Monocytes % % Eosinophils % % Basophils % % Neutrophils # (1.3-7.7) k/uL Lymphocytes # (1.0-4.8) k/uL Monocytes # (0-1.0) k/uL Eosinophils # (0-0.7) k/uL Basophils # (0-0.2) k/uL PT 10.9 (9.0-12.0) sec INR 1.1 (<1.2) APTT 24.6 (22.0-30.0) sec Sodium (137-145) mmol/L Potassium (3.5-5.1) mmol/L Chloride (98-107) mmol/L Carbon Dioxide (22-30) mmol/L Anion Gap mmol/L BUN (7-17) mg/dL Creatinine (0.52-1.04) mg/dL Est GFR (MDRD) Af Amer (>60 ml/min/1.73 sqM) Est GFR (MDRD) Non-Af (>60 ml/min/1.73 sqM) Glucose (74-99) mg/dL Calcium (8.4-10.2) mg/dL Magnesium (1.6-2.3) mg/dL Total Bilirubin (0.2-1.3) mg/dL AST (14-36) U/L ALT (9-52) U/L Alkaline Phosphatase (38-126) U/L Total Creatine Kinase (30-135) U/L CK-MB (CK-2) (0.0-2.4) ng/mL CK-MB (CK-2) Rel Index Troponin I (0.000-0.034) ng/mL NT-Pro-B Natriuret Pep 133 pg/mL Total Protein (6.3-8.2) g/dL Albumin (3.5-5.0) g/dL Lipase (23-300) U/L Urine Color Light Yellow Urine Appearance Clear (Clear) Urine pH 5.0 (5.0-8.0) Ur Specific [place] 1.013 (1.001-1.035) Urine Protein Negative (Negative) Urine Glucose (UA) Negative (Negative) Urine Ketones 1+ H (Negative) Urine Blood Negative (Negative) Urine Nitrite Negative (Negative) Urine Bilirubin Negative (Negative) Urine Urobilinogen <2.0 (<2.0) mg/dL Ur Leukocyte Esterase Small H (Negative) Urine RBC 1 (0-5) /hpf Urine WBC 4 (0-5) /hpf - Radiology Data Radiology results: report reviewed (Chest x-ray is negative for acute disease), image reviewed Disposition Clinical Impression: Hypertension, Chest pain Disposition: HOME SELF-CARE Condition: Good Instructions: Chest Pain (ED), Hypertension (ED) Referrals: Aquilino Sow DO [Primary Care Provider] - 1-2 days
[2017-04-28] MEDS ORDERED: hydrALAZINE HCL 20 MG/ML 1 ML VIAL IVP STA (13:22)
[2017-04-28 13:24] LABS: Basophils % (A) 0 %; CH 30.4; CHCM 33.2; Eosinophils # (A) 0.1 k/uL (0-0.7); Eosinophils % (A) 1 %; HCT 40.4 % (34.0-46.0); HDW 2.57; HGB 13.6 gm/dL (11.4-16.0); Luc # (Auto) 0.12; Luc % (Auto) 2; Lymphocytes # (A) 2.2 k/uL (1.0-4.8); Lymphocytes % (A) 43 %; MCH 31.2 pg (25.0-35.0); MCHC 33.8 g/dL (31.0-37.0); MCV 92.3 fL (80.0-100.0); Mean Platelet Volume 7.5; Monocytes # (A) 0.2 k/uL (0-1.0); Monocytes % (A) 4 %; Neutrophils # (A) 2.6 k/uL (1.3-7.7); Neutrophils % (A) 50 %; RBC 4.37 m/uL (3.80-5.40); RDW 13.2 % (11.5-15.5); WBC 5.2 k/uL (3.8-10.6); WBC (Perox) 5.08
[2017-04-28 13:27] LABS: ALT 45 U/L (9-52); AST 34 U/L (14-36); Alkaline Phosphatase 72 U/L (38-126); Anion Gap 11 mmol/L; Blood Urea Nitrogen 25 mg/dL (7-17); Carbon Dioxide 28 mmol/L (22-30); Chloride 102 mmol/L (98-107); Glucose 77 mg/dL (74-99); Magnesium 1.7 mg/dL (1.6-2.3); Non-African American GFR(MDRD) >60 (>60 ml/min/1.73 sqM); Potassium 3.7 mmol/L (3.5-5.1); Sodium 141 mmol/L (137-145); Total Bilirubin 0.6 mg/dL (0.2-1.3); Total Protein 7.7 g/dL (6.3-8.2)
[2017-04-28 13:28] LABS: INR 1.1 (<1.2); Partial Thromboplastin Time 24.6 sec (22.0-30.0); Prothrombin Time 10.9 sec (9.0-12.0)
[2017-04-28 13:36] VITALS: RESP 17
[2017-04-28 13:36] LABS: Creatine Kinase 66 U/L (30-135)
[2017-04-28 13:49] LABS: Creatine Kinase MB 1.3 ng/mL (0.0-2.4); Troponin I <0.012 ng/mL (0.000-0.034)
[2017-04-28] MEDS ORDERED: SODIUM CHLORIDE 0.9% 500 ML IV STA (13:52)
--- NOTE | 2017-04-28 13:58 | XR ---
EXAMINATION TYPE: XR chest 2V DATE OF EXAM: 04/28/2017 COMPARISON: 04/16/2017 TECHNIQUE: PA and lateral views submitted. HISTORY: Chest heaviness FINDINGS: The lungs are clear and there is no pneumothorax, pleural effusion, or focal pneumonia. Previous briseno rgery involving the thoracic spine and rib cage noted. IMPRESSION: 1. No acute process.
[2017-04-28 14:22] VITALS: BP 153/99; PULSE 77
[2017-04-28 14:26] LABS: Appearance,Urine Clear (Clear); Bilirubin,Urine Negative (Negative); Glucose,Urine (UA) Negative (Negative); Ketones,Urine 1+ (Negative); Leukocyte Esterase,Urine Small (Negative); Nitrite,Urine Negative (Negative); Particle Count 542; Protein,Urine Negative (Negative); RBC,Urine 1 /hpf (0-5); Specific Gravity,Urine 1.013 (1.001-1.035); UA Billing (MACRO vs. MICRO) MICRO; Urobilinogen,Urine <2.0 mg/dL (<2.0); WBC,Urine 4 /hpf (0-5)
== END 2017-04-28 14:57 | disposition home or self-care (01) ==
LOC: EC 12:51
DX: R07.9 Chest pain, unspecified (principal); I10 Essential (primary) hypertension; M79.7 Fibromyalgia; E03.9 Hypothyroidism, unspecified; F41.9 Anxiety disorder, unspecified; F32.9 Major depressive disorder, single episode, unspecified; G47.30 Sleep apnea, unspecified; Z99.89 Dependence on other enabling machines and devices; Z87.891 Personal history of nicotine dependence; Z79.899 Other long term (current) drug therapy; Z88.2 Allergy status to sulfonamides; Z88.8 Allergy status to other drugs, medicaments and biological substances; Z91.048 Other nonmedicinal substance allergy status
CPT/HCPCS: 99285 ×2; 96374 ×2; 96361 ×3; 36415; 93005; 83880; 80053; 82550; 82553; 83690; 83735; 84484; 85025; 85610; 85730; 81001; 87086; 71020; J0360

== ENCOUNTER → 2017-06-04 | Outpatient (CLI) | payer MEDICARE, OTHER ==
[2017-06-04 13:23] VITALS: BP 131/72; PULSE 77; RESP 16; TEMP 97.4; BMI 32.0
--- NOTE | 2017-08-08 19:11 | P.PN ---
Subjective Progress Note Date: 06/04/17 DATE OF SERVICE: 06/04/2017 CHIEF COMPLAINT: Follow-up sleeve gastrectomy HISTORY OF PRESENT ILLNESS: Christa Adams is a 61-year-old female who presented to the bariatric program in April 2015. For her height of 5 feet 6-1/2 inches, she was 263 pounds. Body mass index was 42. Her ideal body weight is 154 pounds. Today she comes in weighing 201 pounds. Since her sleeve gastrectomy in December 2015, she has lost 62 pounds. Percent excess weight loss of 57%. BMI reduction of 10 points. Her personal goal is to get down to 160 pounds. She still seeking weight loss. Since her last visit 5 months ago, she has gained 1 pound. She comes in with troubles with her skin with chronic panniculitis. She reports severe rash uncontrolled with medical treatment. She does reports of a gastroesophageal reflux disease with her sleeve gastrectomy. Now she presents for evaluation for panniculectomy. PAST MEDICAL HISTORY: 1. Hepatitis C in remission. 2. Fibromyalgia. 3. Raynaud's. 4. Obstructive sleep apnea. 5. Morbid obesity. 6. Irritable bowel syndrome. 7. Depression. 8. Gastroesophageal reflux disease. 9. Neuropathy. 10. Hypertension. 11. Hypothyroidism. 12. Osteoarthritis of the bilateral knees. 13. Osteoarthritis of the lower back. 14. Diabetes type 2. 15. Osteoarthritis of the bilateral hips 16. Osteoarthritis bilateral ankle pain. PAST SURGICAL HISTORY: 1. She has had repeat colonoscopies for history of irritable bowel syndrome. 2. Appendectomy. 3. Tonsillectomy. MEDICATIONS: 1. Levothyroxine. 2. Flonase nasal spray 3. Nystatin powder. 4. OxyContin. 5. Multivitamin. 6. Singulair. 7. Lisinopril. 8. Cymbalta. 9. Aspirin. 10. Lipitor 11. Antivert 12. Norvasc 13. Vistaril ALLERGIES: 1. Lamictal. 2. Sulfa. 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 As a result, she has developed hepatitis C. Also reports former tobacco use as well as former IV drug abuse. FAMILY HISTORY: Negative for lupus or inflammatory bowel disease. She does have family history of morbid obesity. She denies any personal familial history of stomach or esophageal cancer. She denies any familial history of lupus. She denies any familial history or personal history of Crohn's disease or ulcerative colitis. She does have a family history of blood clots including an aunt who had DVT in the left leg. She denies any celiac disease in the family. She reports that everyone in her family overall has troubles with their weight. She had a sister who had an adjustable gastric band. REVIEW OF SYSTEMS: CONSTITUTIONAL: For her height of 5 feet 6-1/2 inches, she was 263 pounds. Body mass index was 42. Her ideal body weight is 154 pounds. Today she comes in weighing 201 pounds. Since her sleeve gastrectomy in December 2015, she has lost 62 pounds. Percent excess weight loss of 57%. BMI reduction of 10 points. HEENT: No troubles with vision or hearing. Denies dysphagia. She does report vocal cord irritation from gastroesophageal reflux disease. RESPIRATORY: Obstructive sleep apnea, resolved. No reports of pneumonia. CARDIOVASCULAR: Has hypertension. GASTROINTESTINAL: Has severe gastroesophageal reflux disease including irritable bowel syndrome. No recent blood in stools. She does report having hepatitis C which is in remission and has developed neuropathy as a result. She reports food intolerance including milk intolerance. ENDOCRINE: She has history of thyroid disorder with hypothyroidism. Also she has history of blood sugar glucose intolerance now resolved. MUSCULOSKELETAL: Has osteoarthritis of the lower back including bilateral hips and bilateral knee secondary to morbid obesity. NEURO: Has neuropathy. No reports of stroke or seizure disorders. PSYCH: No reports of recent suicidal ideation; however, she has depression. Also has chronic pain syndrome. She also reports a personal history of binge eating disorder including stress eating. HEMATOLOGIC: No personal history of venothrombolic event; however, she did have an aunt with DVT of the leg. GENITOURINARY: She comes in with recurrent complaints of chronic bladder infections which she currently sees the urologist. PHYSICAL EXAM: VITAL SIGNS: 5 foot 6-1/2, 201 pounds. Body mass index of 32. Vital Signs Temp 97.4 F L 06/04/17 13:10 Pulse 77 06/04/17 13:10 Resp 16 06/04/17 13:10 BP 131/72 06/04/17 13:10 Pulse Ox GENERAL: Well-developed pleasant female in acute distress. HEENT: No scleral icterus. Extraocular movements grossly intact. Moist buccal mucosa. CHEST: Nonlabored respirations. Equal bilateral excursions. CARDIOVASCULAR: Regular rate and rhythm. 2+ radial pulses ABDOMEN: Protuberant, soft, nontender. MUSCULOSKELETAL: No clubbing, cyanosis or edema. NEURO: No focal or lateralizing signs. Cranial nerves II-12 grossly intact. SKIN: Has panniculitis of the abdomen. Pannus weight of 10 pounds. Hyperemia noted. Pannus over 6 cm covering pubis. NECK: Supple lymphadenopathy. ASSESSMENT: 1. Morbid obesity due to exogenous caloric intake. 2. Body mass index 42 down to 32 3. History of binge eating and food disorders. 4. Hypertensive heart disease. 5. Obstructive sleep apnea, resolved. 6. Osteoarthritis of the bilateral extremities, improved. 7. Osteoarthritis of the lower back, improved. 8. Irritable bowel syndrome, improved. 9. Severe gastroesophageal reflux disease. 10. Raynaud's phenomena. 11. Fibromyalgia. 12. History of recurrent bladder infections. 13. Diabetes type 2, resolved. 14. Familial history of venous thrombolic event. 15. History of serous positive hepatitis, now in remission. 16. Past history of IV drug abuse. 17. Status post sleeve gastrectomy. 18. Panniculitis. PLAN: 1. Recommend obtaining an upper endoscopy, especially with the severity of the gastroesophageal reflux disease. 2. On exam, she has moderate-sized pannus over 10 pounds. She has tried medical treatment over 2 years without improvement of symptoms. Recommend evaluation for panniculectomy 3. Separately, patient reports worsening gastroesophageal reflux disease since her sleeve gastrectomy. Recommend upper endoscopy to further evaluation and management. 4. She may need revision from a sleeve gastrectomy to a gastric bypass for surgical correction. Thank you very much for this kind consultation. Objective - Vital Signs Vital signs: Vital Signs Temp 97.4 F L 06/04/17 13:10 Pulse 77 06/04/17 13:10 Resp 16 06/04/17 13:10 BP 131/72 06/04/17 13:10 Pulse Ox Intake & Output 06/03/17 06/04/17 06/04/17 18:59 06:59 18:59 Weight 91.354 kg
== END ==
LOC: BARWHC3 12:59
PROVIDERS: ATTEND Surgery Plastic and Reconstructive Surgery
DX: Z09 Encounter for follow-up examination after completed treatment for conditions other than malignant neoplasm (principal); E66.01 Morbid (severe) obesity due to excess calories; I11.9 Hypertensive heart disease without heart failure; M19.071 Primary osteoarthritis, right ankle and foot; M19.072 Primary osteoarthritis, left ankle and foot; M47.816 Spondylosis without myelopathy or radiculopathy, lumbar region; K58.9 Irritable bowel syndrome, unspecified; K21.9 Gastro-esophageal reflux disease without esophagitis; I73.00 Raynaud's syndrome without gangrene; M79.7 Fibromyalgia; M79.3 Panniculitis, unspecified; Z68.32 Body mass index [BMI] 32.0-32.9, adult; Z86.19 Personal history of other infectious and parasitic diseases; Z87.440 Personal history of urinary (tract) infections; Z90.89 Acquired absence of other organs; Z79.82 Long term (current) use of aspirin; Z88.8 Allergy status to other drugs, medicaments and biological substances; Z88.2 Allergy status to sulfonamides; Z79.899 Other long term (current) drug therapy; Z98.84 Bariatric surgery status
CPT/HCPCS: 99211

== ENCOUNTER 2017-06-09 08:01 | Observation (INO) | payer MEDICARE, OTHER ==
--- NOTE | 2017-06-09 09:08 | ED ---
General Adult HPI - General Chief complaint: Altered Mental Status Stated complaint: Confusion Time Seen by Provider: 06/09/17 08:43 Source: patient, EMS, RN notes reviewed Mode of arrival: EMS Limitations: altered mental status - History of Present Illness Initial comments: Patient is a pleasant 61-year-old female presenting to the emergency department with change in mental status. Patient does not know how she got to the hospital. Patient is unclear if anything is wrong or not. Patient does not remember waking up this morning. Patient is unclear what year it is. Otherwise patient has no specific complaints. No pain. Patient denies depression or anxiety. - Related Data Home Medications Medication Instructions Recorded Confirmed Levothyroxine Sodium [Synthroid] 88 mcg PO DAILY 12/03/13 06/09/17 Fluticasone Nasal [place] [Flonase 1 - 2 spray NASAL DAILY PRN 12/29/14 06/09/17 Nasal [place]] Montelukast Sodium [Singulair] 10 mg PO HS 12/18/15 06/09/17 Multivitamins, Thera [Multivitamin 1 tab PO DAILY 04/24/16 06/09/17 (formulary)] DULoxetine HCL [Cymbalta] 60 mg PO QAM 04/16/17 06/09/17 oxyCODONE ER [OxyCONTIN] 15 mg PO Q12HR PRN 04/16/17 06/09/17 Atomoxetine HCl [Strattera] 80 mg PO QAM 06/09/17 06/09/17 DULoxetine HCL [Cymbalta] 30 mg PO HS 06/09/17 06/09/17 Lisinopril 30 mg PO DAILY 06/09/17 06/09/17 Allergies Allergy/AdvReac Type Severity Reaction Status Date / Time adhesive tape Allergy Unknown Verified 06/09/17 08:15 fentanyl Allergy Unknown Verified 06/09/17 08:18 lamotrigine [From Lamictal] Allergy Rash/Hives Verified 06/09/17 08:15 Sulfa (Sulfonamide Allergy Rash/Hives Verified 06/09/17 08:15 Antibiotics) Review of Systems ROS Statement: Those systems with pertinent positive or pertinent negative responses have been documented in the HPI. ROS Other: All systems not noted in ROS Statement are negative. Constitutional: Denies: fever Eyes: Denies: eye pain ENT: Denies: ear pain Respiratory: Denies: cough Cardiovascular: Denies: chest pain Endocrine: Denies: fatigue Gastrointestinal: Denies: abdominal pain Genitourinary: Denies: dysuria Musculoskeletal: Denies: back pain Skin: Denies: rash Neurological: Reports: confusion. Denies: headache, weakness Past Medical History Past Medical History: Eye Disorder, Fibromyalgia, Hypertension, Liver Disease, Osteoarthritis (OA), Rheumatoid Arthritis (RA), Skin Disorder, Sleep Apnea/CPAP/ BIPAP, Thyroid Disorder Additional Past Medical History / Comment(s): Hepatitis C - in remission, neuorpathy bilateral hands and feet,IBS, hx colitis, frequent headaches, varicose veins bilaterally, dermatitis,hx psoriasis, chronic UTI's, raymauds- hands and feet, glaucoma bilaterally, hypothyroid. bariatric sleeve 12-27-15 History of Any Multi-Drug Resistant Organisms: None Reported Past Surgical History: Appendectomy, Back Surgery, Bariatric Surgery, Orthopedic Surgery, Tonsillectomy Additional Past Surgical History / Comment(s): 12/27/15 laparoscopic sleeve gastrectomy with EGD. Other surgical hx: EGD/colonoscopy, nasal surgery, left hand-tendon surgery in thumb with carpal tunnel and trigger finger, RUTH KNEES AND ANKLES ARTHROSCOPY, ruth cataracts Sleeve Past Anesthesia/Blood Transfusion Reactions: Motion Sickness Past Psychological History: Anxiety, Depression Smoking Status: Former smoker Past Alcohol Use History: None Reported Past Drug Use History: None Reported - Past Family History Mother Family Medical History: Diabetes Mellitus, Renal Disease Additional Family Medical History / Comment(s): Mother is 80yrs old. Father Family Medical History: Cancer, COPD Additional Family Medical History / Comment(s): PROSTATE and SKIN cancer. at 82 of COPD. Brother(s) Family Medical History: Cancer Additional Family Medical History / Comment(s): PROSTATE, skin General Exam Limitations: altered mental status General appearance: alert, in no apparent distress Head exam: Present: atraumatic Eye exam: Present: normal appearance, PERRL ENT exam: Present: normal oropharynx Neck exam: Present: normal inspection Respiratory exam: Present: normal lung sounds bilaterally Cardiovascular Exam: Present: regular rate, normal rhythm GI/Abdominal exam: Present: soft. Absent: tenderness Extremities exam: Present: normal inspection Neurological exam: Present: alert, altered, CN II-XII intact. Absent: motor sensory deficit Expanded Patient oriented to: Present: person, place. Absent: time Cranial nerves: EOM's Intact: Normal, Facial Sensation: Normal Sensory exam: Upper Extremity Light Touch: Normal, Lower Extremity Light Touch: Normal Motor strength exam: RUE: 5, LUE: 5, RLE: 5, LLE: 5 Eye Response: (4) open spontaneously Motor Response: (6) obeys commands Verbal Response: (4) confused conversation Psychiatric exam: Present: normal affect, normal mood Skin exam: Present: normal color Course Vital Signs 06/09/17 06/09/17 08:04 10:25 Temperature 97.6 F Pulse Rate 75 71 Respiratory 20 18 Rate Blood Pressure 194/103 199/117 O2 Sat by Pulse 98 100 Oximetry EKG Findings - EKG Comments: EKG Findings:: Normal sinus rhythm 68. IN 14. QRS 92. QT 432. QTC 459. Left axis. Left anterior fascicular block. LVH criteria. No acute ST change. Medical Decision Making - Medical Decision Making Patient reexamined and unchanged. Family states patient was in an argument last night and may have been somewhat upset. They're unclear if patient has been having a lot of stress and anxiety lately or not. Case was discussed in detail with Dr. bird, who will admit for Dr. Sow. He would like psychiatry consult only at this time. Patient and family were updated on results and plan. - Lab Data Result diagrams: 06/09/17 08:20 06/09/17 08:20 Lab Results 06/09/17 06/09/17 06/09/17 Range/Units 08:20 08:20 08:20 WBC 4.9 (3.8-10.6) k/uL RBC 4.46 (3.80-5.40) m/uL Hgb 13.5 (11.4-16.0) gm/dL Hct 40.2 (34.0-46.0) % MCV 90.1 (80.0-100.0) fL MCH 30.4 (25.0-35.0) pg MCHC 33.7 (31.0-37.0) g/dL RDW 13.9 (11.5-15.5) % Plt Count 161 (150-450) k/uL Neutrophils % 62 % Lymphocytes % 31 % Monocytes % 4 % Eosinophils % 1 % Basophils % 1 % Neutrophils # 3.0 (1.3-7.7) k/uL Lymphocytes # 1.5 (1.0-4.8) k/uL Monocytes # 0.2 (0-1.0) k/uL Eosinophils # 0.1 (0-0.7) k/uL Basophils # 0.0 (0-0.2) k/uL PT (9.0-12.0) sec INR (<1.2) APTT (22.0-30.0) sec Sodium 143 (137-145) mmol/L Potassium 3.9 (3.5-5.1) mmol/L Chloride 106 (98-107) mmol/L Carbon Dioxide 26 (22-30) mmol/L Anion Gap 11 mmol/L BUN 21 H (7-17) mg/dL Creatinine 0.76 (0.52-1.04) mg/dL Est GFR (MDRD) Af Amer >60 (>60 ml/min/1.73 sqM) Est GFR (MDRD) Non-Af >60 (>60 ml/min/1.73 sqM) Glucose 79 (74-99) mg/dL Calcium 9.8 (8.4-10.2) mg/dL Total Bilirubin 0.6 (0.2-1.3) mg/dL AST 24 (14-36) U/L ALT 26 (9-52) U/L Alkaline Phosphatase 69 (38-126) U/L Total Creatine Kinase 59 (30-135) U/L CK-MB (CK-2) 1.3 (0.0-2.4) ng/mL CK-MB (CK-2) Rel Index 2.2 Troponin I 0.016 (0.000-0.034) ng/mL Total Protein 7.5 (6.3-8.2) g/dL Albumin 4.6 (3.5-5.0) g/dL Urine Color Urine Appearance (Clear) Urine pH (5.0-8.0) Ur Specific [place] (1.001-1.035) Urine Protein (Negative) Urine Glucose (UA) (Negative) Urine Ketones (Negative) Urine Blood (Negative) Urine Nitrite (Negative) Urine Bilirubin (Negative) Urine Urobilinogen (<2.0) mg/dL Ur Leukocyte Esterase (Negative) Serum Alcohol <10 mg/dL 11/14/17 11/14/17 Range/Units 08:20 09:30 WBC (3.8-10.6) k/uL RBC (3.80-5.40) m/uL Hgb (11.4-16.0) gm/dL Hct (34.0-46.0) % MCV (80.0-100.0) fL MCH (25.0-35.0) pg MCHC (31.0-37.0) g/dL RDW (11.5-15.5) % Plt Count (150-450) k/uL Neutrophils % % Lymphocytes % % Monocytes % % Eosinophils % % Basophils % % Neutrophils # (1.3-7.7) k/uL Lymphocytes # (1.0-4.8) k/uL Monocytes # (0-1.0) k/uL Eosinophils # (0-0.7) k/uL Basophils # (0-0.2) k/uL PT 10.6 (9.0-12.0) sec INR 1.0 (<1.2) APTT 25.4 (22.0-30.0) sec Sodium (137-145) mmol/L Potassium (3.5-5.1) mmol/L Chloride (98-107) mmol/L Carbon Dioxide (22-30) mmol/L Anion Gap mmol/L BUN (7-17) mg/dL Creatinine (0.52-1.04) mg/dL Est GFR (MDRD) Af Amer (>60 ml/min/1.73 sqM) Est GFR (MDRD) Non-Af (>60 ml/min/1.73 sqM) Glucose (74-99) mg/dL Calcium (8.4-10.2) mg/dL Total Bilirubin (0.2-1.3) mg/dL AST (14-36) U/L ALT (9-52) U/L Alkaline Phosphatase (38-126) U/L Total Creatine Kinase (30-135) U/L CK-MB (CK-2) (0.0-2.4) ng/mL CK-MB (CK-2) Rel Index Troponin I (0.000-0.034) ng/mL Total Protein (6.3-8.2) g/dL Albumin (3.5-5.0) g/dL Urine Color Light Yellow Urine Appearance Clear (Clear) Urine pH 7.0 (5.0-8.0) Ur Specific [place] 1.010 (1.001-1.035) Urine Protein Negative (Negative) Urine Glucose (UA) Negative (Negative) Urine Ketones Negative (Negative) Urine Blood Negative (Negative) Urine Nitrite Negative (Negative) Urine Bilirubin Negative (Negative) Urine Urobilinogen <2.0 (<2.0) mg/dL Ur Leukocyte Esterase Negative (Negative) Serum Alcohol mg/dL - Radiology Data Radiology results: report reviewed (Computed tomography scan of the brain shows no acute intercranial abnormality. Mild chronic changes. Stable prominence of retrocerebellar CSF space.), image reviewed (Chest x-ray shows mild cardiomegaly.) Disposition Clinical Impression: Altered mental status Disposition: ADMITTED IP TO THIS [facility] Referrals: Aquilino Sow DO [Primary Care Provider] - 1-2 days Decision Time: 10:59
[2017-06-09 09:26] LABS: Basophils % (A) 1 %; CH 29.5; Eosinophils # (A) 0.1 k/uL (0-0.7); Eosinophils % (A) 1 %; HCT 40.2 % (34.0-46.0); HGB 13.5 gm/dL (11.4-16.0); Luc # (Auto) 0.07; Luc % (Auto) 2; Lymphocytes # (A) 1.5 k/uL (1.0-4.8); Lymphocytes % (A) 31 %; MCH 30.4 pg (25.0-35.0); MCHC 33.7 g/dL (31.0-37.0); MCV 90.1 fL (80.0-100.0); Mean Platelet Volume 8.5; Monocytes # (A) 0.2 k/uL (0-1.0); Monocytes % (A) 4 %; Neutrophils % (A) 62 %; RBC 4.46 m/uL (3.80-5.40); RDW 13.9 % (11.5-15.5); WBC 4.9 k/uL (3.8-10.6); WBC (Perox) 5.08
[2017-06-09 09:37] LABS: Partial Thromboplastin Time 25.4 sec (22.0-30.0); Prothrombin Time 10.6 sec (9.0-12.0)
[2017-06-09 09:39] LABS: ALT 26 U/L (9-52); AST 24 U/L (14-36); Alcohol <10 mg/dL; Alkaline Phosphatase 69 U/L (38-126); Anion Gap 11 mmol/L; Blood Urea Nitrogen 21 mg/dL (7-17); Calcium 9.8 mg/dL (8.4-10.2); Carbon Dioxide 26 mmol/L (22-30); Chloride 106 mmol/L (98-107); Glucose 79 mg/dL (74-99); Non-African American GFR(MDRD) >60 (>60 ml/min/1.73 sqM); Potassium 3.9 mmol/L (3.5-5.1); Sodium 143 mmol/L (137-145); Total Bilirubin 0.6 mg/dL (0.2-1.3); Total Protein 7.5 g/dL (6.3-8.2)
--- NOTE | 2017-06-09 09:45 | CT ---
EXAMINATION TYPE: CT brain wo con DATE OF EXAM: 06/09/2017 COMPARISON: 02/24/2013 HISTORY: 61-year-old female confusion TECHNIQUE: Examination was done in axial plane without intravenous contrast. Coronal and sagittal r econstructions performed. CT DLP: 1072.3 mGycm Automated exposure control for dose reduction was used. FINDINGS: There is no evidence of acute intracranial hemorrhage, acute ischemic changes, mass, mass-effect, or extra-axial fluid collection. There is no effacement of cerebral sulci or basal subarachnoid cister ns. There is no hydrocephalus. There is no midline shift. Cortes-white matter distinction is preserv ed. 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 Partial ly empty sella. Mild patchy periventricular white matter hypodensities suggest changes of chronic small vessel ischem ic disease, unchanged from 2013 as well. Paranasal sinuses and mastoid air cells well pneumatized. Orbits and globes are intact. IMPRESSION: 1. No acute intracranial abnormality seen. Mild changes of chronic small vessel ischemic disease emiliano lar to 2013. 2. 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
--- NOTE | 2017-06-09 09:52 | XR ---
EXAMINATION TYPE: XR chest 2V DATE OF EXAM: 06/09/2017 COMPARISON: Chest x-ray April 28, 2017. HISTORY: Altered mental status per order. TECHNIQUE: Frontal and lateral views of the chest are obtained. FINDINGS: There is no focal air space opacity, pleural effusion, or pneumothorax seen. The cardiac silhouette size is enlarged. Postsurgical changes mid to lower thoracic spine is redemonstrated. IMPRESSION: Mild cardiomegaly without acute pulmonary process.
[2017-06-09 10:02] LABS: Creatine Kinase MB 1.3 ng/mL (0.0-2.4); Troponin I 0.016 ng/mL (0.000-0.034)
[2017-06-09 10:53] LABS: Appearance,Urine Clear (Clear); Bilirubin,Urine Negative (Negative); Glucose,Urine (UA) Negative (Negative); Ketones,Urine Negative (Negative); Leukocyte Esterase,Urine Negative (Negative); Nitrite,Urine Negative (Negative); Protein,Urine Negative (Negative); UA Billing (MACRO vs. MICRO) CHEM; Urobilinogen,Urine <2.0 mg/dL (<2.0)
[2017-06-09] MEDS ORDERED: LISINOPRIL 20 MG TAB PO STA (11:00)
[2017-06-09] MEDS ORDERED: NALOXONE 0.4 MG/ML 1 ML VIAL IV PRN (11:00)
[2017-06-09] MEDS ORDERED: ACETAMINOPHEN TAB 500 MG TAB PO STA (14:21)
[2017-06-09] MEDS ORDERED: INFLUENZA VACCINE (6 MOS+) 60 MCG/0.5 ML SYRINGE IM ONE (15:42)
[2017-06-09] MEDS ORDERED: FLUTICASONE 50MCG/SPRAY NASAL 16GM NASAL PRN (16:11)
[2017-06-09] MEDS: oxyCODONE ER 15 MG TAB.ER.12H PO PRN (18:52)
[2017-06-09] MEDS: ASPIRIN 81 MG PO SCH (18:53)
[2017-06-09] MEDS: ATORVASTATIN 40 MG TAB PO SCH (18:53)
--- NOTE | 2017-06-09 19:44 | HP ---
HISTORY AND PHYSICAL DATE OF ADMISSION: 06/09/17 PRESENT COMPLAINT: Acute memory loss. HISTORY OF PRESENTING COMPLAINT: This is a 61-year-old patient of Dr. Sow. The patient's this morning around 6 o'clock in the morning was taking a shower and that is the last thing she remembers. Next thing she remembers actually is being in the ambulance and getting to the hospital. What she was told that her friend called two of her daughters and they called the EMS. The EMS run sheet states that they found a 61-year-old patient sitting in the living room. She was in distress. Patient was scared, crying and shaking and she was AO x3 and she told him she is having memory issues and cannot remember things and she told them that she must have taken a shower because her hair is wet, but does not remember the shower or getting dressed. She told him it has been going on for about 20 minutes. She does not remember calling 911. The patient had no focal weakness and patient is able to walk. The patient is somewhat anxious during my interview. She states that she has not been sleeping well for quite some time. She started working part-time now. Her dog wakes up early in the morning, gets into a bed and she is having trouble sleeping, though she denies getting tired. The patient's other chronic stable medical conditions include fibromyalgia, hypertension, osteoarthritis, obstructive sleep apnea, peripheral neuropathy, cause unknown, Raynaud disease, anxiety, depression. Denies any change in speech. No change in vision. No headache. No focal weakness. No prior history of strokes. REVIEW OF SYSTEMS: CONSTITUTIONAL: Tired. HEENT: None. RESPIRATORY: None. CARDIOVASCULAR: None. GASTROINTESTINAL: Denies. MUSCULOSKELETAL: Aches in the joints. DERMATOLOGICAL, HEMATOLOGIC, LYMPHATIC: None. PSYCHIATRY: Anxiety. NEUROLOGICAL: Peripheral neuropathy. Rest as above. PAST MEDICAL HISTORY: Fibromyalgia, GERD, hypertension, osteoarthritis, rheumatoid arthritis, obstructive sleep apnea, hepatitis C that is treated, peripheral neuropathy, irritable bowel syndrome, varicose veins, Raynaud disease anxiety and depression. PAST SURGICAL HISTORY: Appendectomy, back surgery, bariatric surgery, orthopedic surgery, tonsillectomy, sleeve gastrectomy, EGD, bilateral knees and ankle arthroscopy, bilateral cataracts. PSYCH HISTORY: Anxiety and depression. SOCIAL HISTORY: Lives by herself. Smoked for 14 years, stopped 28 years ago. 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 FAMILY HISTORY: Diabetes and renal disease. HOME MEDICATIONS: 1. Lisinopril 30 mg a day. 2. Cymbalta 30 mg at night, 60 mg in the morning. 3. Strattera 80 mg in the morning. 4. OxyContin 50 mg p.o. q.12 p.r.n. 5. Multivitamin 1 tab p.o. daily. 6. Singulair 10 mg q.h.s. 7. Synthroid 88 mcg a day. 8. Flonase spray 1-2 sprays daily p.r.n. ALLERGIES: ADHESIVE, VENTOLIN, LAMICTAL, SULFUR. PHYSICAL EXAMINATION: Temperature 97.8 pulse 67, respiratory 18, blood pressure 124/78, before that 144/87. GENERAL APPEARANCE: Well built, BMI 38.4, lying in bed, a bit anxious appearing. EYES: Pupils equal. Conjunctivae normal. HEENT: Oral cavity normal. NECK: JVD not raised. Mass not palpable. RESPIRATORY: Effort normal. Lungs are clear. CARDIOVASCULAR: First and second sounds normal. No edema. ABDOMEN: Soft, nontender. Liver and spleen not palpable. LYMPHATIC: No lymph nodes palpable in neck or axillae. PSYCHIATRY: Alert and oriented x3. Mood and affect is anxious-appearing. NEUROLOGICAL: Pupils equal. Cranial nerves grossly intact. Power and sensation grossly intact. INVESTIGATIONS: White count 4.9, hemoglobin 13.5, potassium 3.9, BUN is 21, creatinine 0.76, LDL is 66. UA negative. CT scan of the brain shows no acute event. ASSESSMENT: 1. This is a patient with transient global amnesia diagnosis which is felt to be a keen to a transient ischemic attack. This is a short duration less than an hour. This factor is the same normally for stroke. It also may be noted that the patient has not been sleeping well of quite a few days and also takes extra dose morphine tablets. I do not know that is being a contribution to her presentation. 2. Obesity; BMI greater than 30. 3. Chronic fibromyalgia. 4. Essential hypertension. 5. Primary osteoarthritis in multiple joints, bilateral. 6. Obstructive sleep apnea uses CPAP machine. 7. Peripheral neuropathy, cause unknown. 8. Irritable bowel syndrome. 9. Raynaud disease. 10.Anxiety, depression, not otherwise specified. PLAN: Home medications are resumed. Patient will be put on aspirin, Lipitor. We will do a 2D echo and a carotid Doppler. We will also order a MRI of the brain. Care was discussed in detail with the patient. Will do neuro checks. Check lipid profile. MMODL / IJN: [id number] /
[2017-06-09] MEDS ORDERED: MONTELUKAST 10 MG TAB PO SCH (21:00)
[2017-06-09] MEDS ORDERED: DULoxetine HCL 30 MG CAPSULE.DR PO SCH (21:00)
[2017-06-09 21:15] VITALS: RESP 16
[2017-06-10 04:04] LABS: Cholesterol 193 mg/dL (<200); HDL Cholesterol 82 mg/dL (40-60)
[2017-06-10] MEDS ORDERED: LEVOTHYROXINE 88 MCG TAB PO SCH (06:30)
--- NOTE | 2017-06-10 07:02 | US ---
EXAMINATION TYPE: US carotid duplex BILAT DATE OF EXAM: 06/09/2017 COMPARISON: NONE CLINICAL HISTORY: transient global amnesia. Syncope EXAM MEASUREMENTS: RIGHT: Peak Systolic Velocity (PSV) cm/sec ----- Right CCA: 104.8 ----- Right ICA: 73.6 ----- Right ECA: 80.1 ICA/CCA ratio: 1.1 RIGHT: End Diastole cm/sec ----- Right CCA: 22.5 ----- Right ICA: 21.9 ----- Right ECA: 12.8 LEFT: Peak Systolic Velocity (PSV) cm/sec ----- Left CCA: 104.3 ----- Left ICA: 56.6 ----- Left ECA: 32.7 ICA/CCA ratio: 0.9 LEFT: End Diastole cm/sec ----- Left CCA: 19.5 ----- Left ICA: 16.7 ----- Left ECA: 4.4 VERTEBRALS (direction of flow): Right Vertebral: Antegrade Left Vertebral: Antegrade Rhythm: Normal Limited exam due to torturous vessels left ECA not well visualized no color flow seen proximally only small area seen distally with doppler vessels dive deep Suboptimal study per technologist. Scanning at right carotid bulb shows mild eccentric plaque on michaud scale images. No significant plaque is seen at left carotid bulb. Velocity measurements and ratios in visualized portion of both internal carotid arteries is within normal limits. Normal cephalad direct ed flow is seen in both vertebral arteries. IMPRESSION: Suboptimal study without hemodynamically significant stenosis seen in either internal ca rotid artery.
[2017-06-10] MEDS ORDERED: LISINOPRIL 10 MG TAB PO SCH (09:00)
[2017-06-10] MEDS ORDERED: STRATTERA 80 MG PO SCH (09:00)
[2017-06-10] MEDS ORDERED: DULoxetine HCL 30 MG CAPSULE.DR PO SCH (09:00)
[2017-06-10] MEDS ORDERED: ENOXAPARIN 40 MG/0.4 ML SYRINGE SQ SCH (09:00)
[2017-06-10] MEDS: ASPIRIN 81 MG PO SCH (10:16)
[2017-06-10] MEDS: ATORVASTATIN 40 MG TAB PO SCH (10:17)
[2017-06-10] MEDS: oxyCODONE ER 15 MG TAB.ER.12H PO PRN (10:28)
[2017-06-10 10:32] VITALS: TEMP 97.5
--- NOTE | 2017-06-10 12:22 | ECHOF ---
Referral Reason:r/o thrombus MEASUREMENTS -------- HEIGHT: 175.3 cm WEIGHT: 88.0 kg BP: RVIDd: 4.7 cm (< 3.3) IVSd: 1.0 cm (0.6 - 1.1) LVIDd: 4.4 cm (3.9 - 5.3) LVPWd: 1.0 cm (0.6 - 1.1) IVSs: 1.4 cm LVIDs: 3.2 cm LVPWs: 1.1 cm LAESV Index (A-L): 34.62 ml/m Ao Diam: 3.5 cm (2.0 - 3.7) AV Cusp: 1.9 cm (1.5 - 2.6) LA Diam: 3.2 cm (2.7 - 3.8) EPSS: 0.1 cm MV E Adonis: 0.60 m/s MV DecT: 251 ms MV A Adonis: 0.72 m/s MV E/A Ratio: 0.83 RAP: 5.00 mmHg RVSP: 25.03 mmHg MV EF SLOPE: 75.75 mm/s (70 - 150) MV EXCURSION: 1.93 cm (> 18.000) FINDINGS -------- Sinus rhythm. This was a techncally difficult study with suboptimal views, , Definity utilized for enhancement of i mages. The left ventricular size is normal. There is mild concentric left ventricular hypertrophy. Overa ll left ventricular systolic function is normal with, an EF between 55 - 60 %. The right ventricle is severely enlarged. LA is moderately dilated 34-39 ml/m2 The right atrial size is normal. 1.5MG OF DEFINITY UTLIZED: 2 OR MORE WALL SEGMENTS NOT VISUALIZED. There is mild aortic valve sclerosis. Mild mitral regurgitation is present. Mild tricuspid regurgitation present. Right ventricular systolic pressure is normal at < 35 mmHg. There is mild to moderate pulmonary hypertension. Trace/mild (physiologic) pulmonic regurgitation. The aortic root size is normal. There is no pericardial effusion. CONCLUSIONS -------- 1. Sinus rhythm. 2. This was a techncally difficult study with suboptimal views, , Definity utilized for enhancement o f images. 3. The left ventricular size is normal. 4. There is mild concentric left ventricular hypertrophy. 5. Overall left ventricular systolic function is normal with, an EF between 55 - 60 %. 6. The right ventricle is severely enlarged. 7. LA is moderately dilated 34-39 ml/m2 8. The right atrial size is normal. 9. 1.5MG OF DEFINITY UTLIZED: 2 OR MORE WALL SEGMENTS NOT VISUALIZED. 10. There is mild aortic valve sclerosis. 11. Mild mitral regurgitation is present. 12. Mild tricuspid regurgitation present. 13. Right ventricular systolic pressure is normal at < 35 mmHg. 14. There is mild to moderate pulmonary hypertension. 15. Trace/mild (physiologic) pulmonic regurgitation. 16. The aortic root size is normal. 17. There is no pericardial effusion. CNA LTC: Christa Olea RDCS
--- NOTE | 2017-06-10 16:44 | MR ---
EXAMINATION TYPE: MR brain wo con DATE OF EXAM: 06/10/2017 COMPARISON: NONE HISTORY: transient global amnesia CONTRAST: Performed utilizing 0 mL intravenous Gadavist gadolinium contrast. TECHNIQUE: Multiplanar, multiecho imaging on a 3.0 Candice magnet is performed through the brain. Stud y is performed within 24 hours of arrival to the hospital. The craniovertebral junction is normal. The pituitary is normal. Diffusion-weighted imaging is performed. No abnormal hyperintensity is present to suggest an acute i ntracranial infarct or acute ischemic change. There are scattered punctate areas of hyperintensity on T2 and Inversion Recovery weighted sequences which are non-specific but can be related to microvascular ischemic changes. Ventricles and sulci are appropriate for the patient age. IMPRESSIONS: 1. Chronic appearing deep white matter ischemic type changes. 2. No acute intracranial process.
[2017-06-10 17:42] VITALS: BP 162/76; PULSE 68
--- NOTE | 2017-06-10 21:00 | EEG ---
ELECTROENCEPHALOGRAM REPORT DATE OF EE06/10/2017. REFERRING PHYSICIAN: Dr. Quick. CONSULTING PHYSICIAN/INTERPRETING PHYSICIAN: Dr. Derek De Los Santos. ELECTROENCEPHALOGRAPHIC EXAMINATION REPORT: INDICATION FOR EXAMINATION: This patient is a 61-year-old female being evaluated for altered mental status and episode of memory loss. AGE: [age]. EEG FINDINGS: A routine 21 channel awake digital EEG recording was accomplished utilizing the 10-20 international system with bipolar and referential montages. The background activity in the most alert resting state consists of a low to medium amplitude, poorly developed and poorly sustained 5-6 Hz activity over the posterior head regions. This posterior rhythm attenuates to eye opening. There is a small amount of low amplitude 18-20 Hz beta activity seen maximally over the anterior head regions. Muscle and movement artifact was observed on a few occasions during the tracing. Hyperventilation was not performed. Photic stimulation at flash frequencies of 2-30 Hz produced a minimal occipital driving response. No epileptiform discharges were seen. IMPRESSION: This EEG is moderately abnormal in a diffuse fashion due to slowing of the EEG background. The EEG failed to reveal any focal, lateralized, or epileptiform abnormalities. If clinically indicated a followup EEG is recommended. Clinical correlation is recommended. MMODL / IJN: [id number] /
--- NOTE | 2017-06-10 23:06 | PN ---
PROGRESS NOTE DATE OF SERVICE: 06/10/2017 PRESENTING COMPLAINT: Acute memory loss. INTERVAL HISTORY: This patient presents with a few hours of complete memory loss, then regained the memory. Workup was pending when I saw her this morning. Overall, the patient is feeling better and relaxed. She did sleep well. REVIEW OF SYSTEMS: Done for constitutional, cardiovascular, GI, pulmonary; relevant findings as above. CURRENT MEDICATIONS: Reviewed. EXAMINATION: Temperature 97.5, pulse 60, respirations 16, blood pressure 130/81, pulse ox 95% on room air. GENERAL APPEARANCE: Sitting up, comfortable. EYES: Pupils equal. Conjunctivae normal. NECK: JVD not raised. Mass not palpable. RESPIRATORY: Effort normal. LUNGS: Clear. CARDIOVASCULAR: First and second heart sounds normal. PSYCH: O and A x3. Mood and affect less anxious-appearing. INVESTIGATIONS: The patient's EEG, 2D echo, MRI are all pending. ASSESSMENT: 1. Acute transient global ischemia. Workup in place. 2. Obesity; body mass index greater than 30. 3. Chronic fibromyalgia. 4. Essential hypertension. 5. Primary osteoarthritis in multiple joints, bilateral. 6. Obstructive sleep apnea, uses continuous positive airway pressure machine. 7. Peripheral neuropathy, cause unknown. 8. Irritable bowel syndrome. 9. Raynaud disease. 10.Anxiety, depression, not otherwise specified. 11.Sleep deprivation, persistent. PLAN: The patient was again talked to about the sleep hygiene. Await the results of the tests as above. In the meantime, patient will be continued on aspirin, Lipitor. Questions were answered. MMODL / IJN: [id number] /
--- NOTE | 2017-06-11 14:08 | P.DS ---
Providers Date of admission: 06/09/17 11:02 Expected date of discharge: 06/11/17 Attending physician: Yrn Quick Primary care physician: Aquilino [facility] Course: FINAL DIAGNOSES: -Acute transient global ischemia. -Obesity, body mass index greater than 30. -Chronic fibromyalgia. -Essential hypertension. -Primary osteoarthritis multiple joints, bilateral. -Obstructive sleep apnea uses continuous positive airway pressure machine. -Peripheral neuropathy cause unknown. -Irritable bowel syndrome. -Raynauds disease. -Anxiety, depression, not otherwise specified. -Sleep deprivation, persistent. HOSPTIAL COURSE: 61-year-old female who is admitted with transient global ischemia, home medications ordered, carotid Doppler completed, brain MRI completed, EEG completed, and echocardiogram performed. These studies were all essentially negative. No acute processes identified. Patient anxious to go home. Tolerating her diet, ambulatory in the room and donato ways, no further episodes of amnesia, or confusion, moving her bowels. It is felt that the patient was simply exhausted due to her dog keeping her awake at night. It was further advised that a solution must be found in order to allow the patient to have an appropriate amount of sleep at night to avoid this happening again. Patient was in agreement. PHYSICAL EXAM: CARDIOVASCULAR: First and second sound noted no edema RESPIRATORY: Respiratory effort normal, lung sounds clear to auscultation. GI: Abdomen soft nontender liver and spleen not palpable MUSKULOSKELETAL: Ambulatory in the room and donato ways without assistance. NEUROLOGIC: No dizziness lightheadedness, or further episodes of inability to remember events of the day PSYCHIATRY: Alert and oriented 3 mood and affect normal Patient was seen and examined by nurse practitioner Vanessa Putnam in all elements of the case discussed with attending Dr. Quick DISPOSITION: Discharge home Patient Condition at Discharge: Stable Plan - Discharge Summary Discharge Rx Participant: No New Discharge Prescriptions: New Aspirin 81 mg PO DAILY chew Atorvastatin [Lipitor] 40 mg PO DAILY #30 tab Continue Levothyroxine Sodium [Synthroid] 88 mcg PO DAILY Fluticasone Nasal [place] [Flonase Nasal [place]] 1 - 2 spray NASAL DAILY PRN PRN Reason: allergies Montelukast Sodium [Singulair] 10 mg PO HS Multivitamins, Thera [Multivitamin (formulary)] 1 tab PO DAILY DULoxetine HCL [Cymbalta] 60 mg PO QAM oxyCODONE ER [OxyCONTIN] 15 mg PO Q12HR PRN PRN Reason: Pain DULoxetine HCL [Cymbalta] 30 mg PO HS Atomoxetine HCl [Strattera] 80 mg PO QAM Lisinopril 30 mg PO DAILY Discharge Medication List Levothyroxine Sodium [Synthroid] 88 mcg PO DAILY 12/03/13 [History] Fluticasone Nasal [place] [Flonase Nasal [place]] 1 - 2 spray NASAL DAILY PRN [History] Montelukast Sodium [Singulair] 10 mg PO HS 12/18/15 [History] Multivitamins, Thera [Multivitamin (formulary)] 1 tab PO DAILY 04/24/16 [History ] DULoxetine HCL [Cymbalta] 60 mg PO QAM 04/16/17 [History] oxyCODONE ER [OxyCONTIN] 15 mg PO Q12HR PRN 04/16/17 [History] Atomoxetine HCl [Strattera] 80 mg PO QAM 06/09/17 [History] DULoxetine HCL [Cymbalta] 30 mg PO HS 06/09/17 [History] Lisinopril 30 mg PO DAILY 06/09/17 [History] Aspirin 81 mg PO DAILY chew 06/10/17 [Rx] Atorvastatin [Lipitor] 40 mg PO DAILY #30 tab 06/10/17 [Rx] Follow up Appointment(s)/Referral(s): Aquilino Sow DO [Primary Care Provider] - 06/16/17 10:00 am Patient Instructions/Handouts: Atorvastatin (By mouth), Altered Mental Status ( GEN) Discharge Disposition: HOME SELF-CARE
--- NOTE | 2017-06-12 11:53 | DS ---
DISCHARGE SUMMARY DATE OF SERVICE: June 10, 2017. ATTENDING NOTE: Patient seen and examined by me. I discussed the case with my nurse practitioner, Ms. Putnam. Please see my progress note from the same date at 2016. The patient being discharged home. More details in my note earlier in the day. MMODL / IJN: [id number] /
--- NOTE | 2017-07-15 10:20 | EEG ---
ELECTROENCEPHALOGRAM REPORT DATE OF EE06/10/2017. REFERRING PHYSICIAN: Dr. Quick. INTERPRETING PHYSICIAN: Dr. Derek De Los Santos MD ELECTROENCEPHALOGRAPHIC EXAMINATION REPORT: INDICATION FOR EXAMINATION: This patient is a 61-year-old female being evaluated for altered mental status and episode of memory loss. AGE: 61. EEG FINDINGS: A routine 21 channel awake digital EEG recording was accomplished utilizing the 10-20 international system with bipolar and referential montages. The background activity in the most alert resting state consists of a low to medium amplitude, fairly well- developed well sustained 8-9 hertz activity over the posterior head regions. This posterior rhythm attenuates to eye opening. There is a small amount of low amplitude 18-20 Hz beta activity seen maximally over the anterior head regions. Muscle and movement artifact was observed on several occasions throughout the tracing. Hyperventilation was not performed. Photic stimulation at flash frequencies of 2-30 Hz produced a good symmetrical occipital driving response. No epileptiform discharges were seen. IMPRESSION: This EEG is within normal limits for the patient's age. The EEG failed to reveal any focal, lateralized, or epileptiform abnormalities. Clinical correlation is recommended. MMODL / IJN: [id number] /
== END 2017-06-10 17:55 | disposition home or self-care (01) ==
LOC: EC 08:01 → 6SEL 11:02 → 5MS5E 06-10 09:59
PROVIDERS: ADMIT Hospitalist; ATTEND Hospitalist
DX: G45.4 Transient global amnesia (principal); I10 Essential (primary) hypertension; F41.9 Anxiety disorder, unspecified; F32.9 Major depressive disorder, single episode, unspecified; M15.9 Polyosteoarthritis, unspecified; M79.7 Fibromyalgia; I73.00 Raynaud's syndrome without gangrene; G62.9 Polyneuropathy, unspecified; G47.33 Obstructive sleep apnea (adult) (pediatric); Z99.89 Dependence on other enabling machines and devices; Z72.820 Sleep deprivation; M06.9 Rheumatoid arthritis, unspecified; E03.9 Hypothyroidism, unspecified; I83.90 Asymptomatic varicose veins of unspecified lower extremity; F10.21 Alcohol dependence, in remission; E66.9 Obesity, unspecified; Z68.30 Body mass index [BMI] 30.0-30.9, adult; Z98.84 Bariatric surgery status; K58.9 Irritable bowel syndrome, unspecified; Z23 Encounter for immunization; Z79.51 Long term (current) use of inhaled steroids; Z79.899 Other long term (current) drug therapy; Z86.19 Personal history of other infectious and parasitic diseases; Z87.891 Personal history of nicotine dependence; Z88.2 Allergy status to sulfonamides; Z88.5 Allergy status to narcotic agent; Z91.048 Other nonmedicinal substance allergy status; Z88.8 Allergy status to other drugs, medicaments and biological substances
CPT/HCPCS: 99285 ×2; 96372; 36415; 95819; 93005; 80061; 80053; 82550; 82553; 84484; 85025; 85610; 85730; 81003; 80306; 80320; 71020; 93880; 70450; 70551; 90686; G0378 ×3; C8929; G0008; J1650; Q9957; 93306

== ENCOUNTER 2017-06-15 16:38 | Emergency (ER) | payer MEDICARE, OTHER ==
[2017-06-15] MEDS ORDERED: MAG HYDROX/AL HYDROX/SIMETH 30 ML CUP PO PRN (18:30)
[2017-06-15] MEDS ORDERED: DIAZEPAM 5 MG/ML (10 ML MDV) IVP STA (18:30)
[2017-06-15] MEDS ORDERED: FAMOTIDINE 20 MG/2 ML VIAL IV STA (18:30)
[2017-06-15] MEDS ORDERED: KETOROLAC 30 MG/ML 1 ML VIAL IVP STA (18:30)
--- NOTE | 2017-06-15 18:36 | ED ---
General Adult HPI - General Chief complaint: Headache Stated complaint: Headache, high blood pressure, arm pain Time Seen by Provider: 06/15/17 17:53 Source: patient Mode of arrival: wheelchair Limitations: no limitations - History of Present Illness Initial comments: patient is a 61-year-old female presents with a chief complaint of headache, shortness of breath, and hypertension. 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 She states that her blood pressure was 160/100 at that time. On presentation to the emergency department, the patient had 3 separate readings that were all within normal limits. Patient states that she was recently admitted to the hospital for what she states is a TIA though she admits that her neurologic workup was negative. At that time, the patient had a stress test performed which was also negative. Patient cannot identify any inciting incidences. There are no aggravating or alleviating factors. Timing is constant. NIH stroke scale score was 0. The patient is neurologically intact - Related Data Home Medications Medication Instructions Recorded Confirmed Levothyroxine Sodium [Synthroid] 88 mcg PO DAILY 12/03/13 06/15/17 Fluticasone Nasal [place] [Flonase 1 - 2 spray NASAL DAILY PRN 12/29/14 06/15/17 Nasal [place]] Montelukast Sodium [Singulair] 10 mg PO HS 12/18/15 06/15/17 Multivitamins, Thera [Multivitamin 1 tab PO DAILY 04/24/16 06/15/17 (formulary)] DULoxetine HCL [Cymbalta] 90 mg PO QAM 04/16/17 06/15/17 oxyCODONE ER [OxyCONTIN] 15 mg PO Q12HR PRN 04/16/17 06/15/17 Atomoxetine HCl [Strattera] 80 mg PO QAM 06/09/17 06/15/17 Lisinopril 30 mg PO DAILY 06/09/17 06/15/17 Atorvastatin [Lipitor] 40 mg PO HS 06/15/17 06/15/17 amLODIPine [Norvasc] 5 mg PO DAILY 06/15/17 06/15/17 Previous Rx's Medication Instructions Recorded Aspirin 81 mg PO DAILY chew 06/10/17 hydrOXYzine PAMOATE [Vistaril] 50 mg PO TID PRN #20 capsule 06/15/17 Allergies Allergy/AdvReac Type Severity Reaction Status Date / Time adhesive tape Allergy Unknown Verified 06/15/17 18:38 fentanyl Allergy Unknown Verified 06/15/17 18:38 lamotrigine [From Lamictal] Allergy Rash/Hives Verified 06/15/17 18:38 Sulfa (Sulfonamide Allergy Rash/Hives Verified 06/15/17 18:38 Antibiotics) Review of Systems ROS Statement: Those systems with pertinent positive or pertinent negative responses have been documented in the HPI. ROS Other: All systems not noted in ROS Statement are negative. Constitutional: Denies: fever Eyes: Denies: vision change ENT: Denies: ear pain, throat pain Respiratory: Denies: cough Cardiovascular: Denies: chest pain Endocrine: Denies: fatigue Gastrointestinal: Denies: abdominal pain, nausea, vomiting Genitourinary: Denies: dysuria Musculoskeletal: Denies: back pain Skin: Denies: rash, lesions Neurological: Reports: headache Psychiatric: Reports: anxiety, depression Past Medical History Past Medical History: Eye Disorder, Fibromyalgia, Hypertension, Liver Disease, Osteoarthritis (OA), Rheumatoid Arthritis (RA), Skin Disorder, Sleep Apnea/CPAP/ BIPAP, Thyroid Disorder Additional Past Medical History / Comment(s): Hepatitis C - in remission, past IV drug abuse-none since 1985, alcoholism-has not drank in nearly 5 yrs, neuorpathy bilateral hands and feet, raynauds bilateral hands/feet, OA and RA multiple joints, occasional thoracic back pain, ELAINE- no longer using CPAP, IBS, colitis, frequent headaches, varicose veins bilaterally, dermatitis, psoriasis, chronic UTI's, glaucoma bilaterally, hypothyroid. History of Any Multi-Drug Resistant Organisms: None Reported Past Surgical History: Appendectomy, Back Surgery, Bariatric Surgery, Orthopedic Surgery, Tonsillectomy Additional Past Surgical History / Comment(s): 12/27/15 laparoscopic sleeve gastrectomy with EGD. Other surgical hx: EGD/colonoscopy, nasal surgery twice , left hand-tendon surgery in thumb, L carpal tunnel release and middle trigger finger, RUTH KNEES AND ANKLES ARTHROSCOPY, ruth cataracts removed. Past Anesthesia/Blood Transfusion Reactions: Motion Sickness Past Psychological History: Anxiety, Depression Smoking Status: Former smoker Past Alcohol Use History: None Reported Past Drug Use History: None Reported - Past Family History Mother Family Medical History: Diabetes Mellitus, Renal Disease Additional Family Medical History / Comment(s): Mother is 80yrs old. Father Family Medical History: Cancer, COPD Additional Family Medical History / Comment(s): PROSTATE and SKIN cancer. at 82 of COPD. Brother(s) Family Medical History: Cancer Additional Family Medical History / Comment(s): PROSTATE, skin General Exam Limitations: no limitations General appearance: alert, in no apparent distress Head exam: Present: atraumatic, normocephalic Eye exam: Present: normal appearance ENT exam: Present: mucous membranes moist Neck exam: Present: tenderness Respiratory exam: Present: normal lung sounds bilaterally Cardiovascular Exam: Present: regular rate, normal rhythm GI/Abdominal exam: Present: soft. Absent: distended, tenderness Rectal exam: Present: deferred Back exam: Absent: CVA tenderness (R), CVA tenderness (L) Neurological exam: Present: alert, oriented X3 Psychiatric exam: Present: anxious, flat affect Skin exam: Present: warm, dry, intact Course Vital Signs 06/15/17 06/15/17 06/15/17 17:02 18:10 19:09 Temperature 98.1 F Pulse Rate 72 65 73 Respiratory 20 18 17 Rate Blood Pressure 131/84 128/77 137/81 O2 Sat by Pulse 98 100 96 Oximetry 06/15/17 20:13 Temperature 98.5 F Pulse Rate 71 Respiratory 18 Rate Blood Pressure 125/71 O2 Sat by Pulse 97 Oximetry Medical Decision Making - Medical Decision Making patient presents with a chief complaint of headache, shortness of breath, and hypertension. On initial evaluation, patient is normotensive. She states that her headache is in her neck, goes across the top of her head. Patient describes being short of breath though her vital signs are stable, pulse ox is 100%. Patient was recently admitted to the hospital therefore giving her one risk factor for etiology such as PE. Initial evaluation, patient is mildly diaphoretic and appears anxious therefore I will get an EKG, basic cardiac labs , and send a d-dimer to evaluate for PE. EKG performed at 1915 showed normal sinus rhythm with a rate of 65 bpm. EKG is otherwise nonspecific. 8:35 PM Lab evaluation of this patient is unremarkable. Cardiac labs are negative. D- dimer is negative at 0.48 making PE very unlikely diagnosis. On reexamination, the patient states she feels better. She inquired about something extra for anxiety. I agreed to prescribe her Vistaril and instructed that she follow-up with her primary care physician. The patient states that she already has an appointment made. At this time, patient is stable for discharge, she is given explicit signs and symptoms that should prompt return visit to the emergency department. - Lab Data Result diagrams: 06/15/17 19:04 06/15/17 19:04 Lab Results 06/15/17 06/15/17 06/15/17 Range/Units 19:04 19:04 19:04 WBC 5.5 (3.8-10.6) k/uL RBC 4.16 (3.80-5.40) m/uL Hgb 12.2 (11.4-16.0) gm/dL Hct 36.9 (34.0-46.0) % MCV 88.8 (80.0-100.0) fL MCH 29.3 (25.0-35.0) pg MCHC 33.0 (31.0-37.0) g/dL RDW 12.3 (11.5-15.5) % Plt Count 156 (150-450) k/uL Neutrophils % 41 % Lymphocytes % 52 % Monocytes % 4 % Eosinophils % 2 % Basophils % 0 % Neutrophils # 2.3 (1.3-7.7) k/uL Lymphocytes # 2.9 (1.0-4.8) k/uL Monocytes # 0.2 (0-1.0) k/uL Eosinophils # 0.1 (0-0.7) k/uL Basophils # 0.0 (0-0.2) k/uL D-Dimer 0.48 (<0.60) mg/L FEU Sodium 139 (137-145) mmol/L Potassium 3.5 (3.5-5.1) mmol/L Chloride 104 (98-107) mmol/L Carbon Dioxide 27 (22-30) mmol/L Anion Gap 8 mmol/L BUN 23 H (7-17) mg/dL Creatinine 0.63 (0.52-1.04) mg/dL Est GFR (MDRD) Af Amer >60 (>60 ml/min/1.73 sqM) Est GFR (MDRD) Non-Af >60 (>60 ml/min/1.73 sqM) Glucose 82 (74-99) mg/dL Calcium 9.1 (8.4-10.2) mg/dL Troponin I (0.000-0.034) ng/mL NT-Pro-B Natriuret Pep pg/mL 06/15/17 06/15/17 Range/Units 19:04 19:04 WBC (3.8-10.6) k/uL RBC (3.80-5.40) m/uL Hgb (11.4-16.0) gm/dL Hct (34.0-46.0) % MCV (80.0-100.0) fL MCH (25.0-35.0) pg MCHC (31.0-37.0) g/dL RDW (11.5-15.5) % Plt Count (150-450) k/uL Neutrophils % % Lymphocytes % % Monocytes % % Eosinophils % % Basophils % % Neutrophils # (1.3-7.7) k/uL Lymphocytes # (1.0-4.8) k/uL Monocytes # (0-1.0) k/uL Eosinophils # (0-0.7) k/uL Basophils # (0-0.2) k/uL D-Dimer (<0.60) mg/L FEU Sodium (137-145) mmol/L Potassium (3.5-5.1) mmol/L Chloride (98-107) mmol/L Carbon Dioxide (22-30) mmol/L Anion Gap mmol/L BUN (7-17) mg/dL Creatinine (0.52-1.04) mg/dL Est GFR (MDRD) Af Amer (>60 ml/min/1.73 sqM) Est GFR (MDRD) Non-Af (>60 ml/min/1.73 sqM) Glucose (74-99) mg/dL Calcium (8.4-10.2) mg/dL Troponin I <0.012 (0.000-0.034) ng/mL NT-Pro-B Natriuret Pep 78 pg/mL Disposition Clinical Impression: SOB (shortness of breath), Tension headache, Anxiety Disposition: HOME SELF-CARE Condition: Good Instructions: Acute Headache (ED) Referrals: Aquilino Sow DO [Primary Care Provider] - 1-2 days
[2017-06-15 19:18] LABS: Basophils % (A) 0 %; CH 30.6; CHCM 34.6; Eosinophils # (A) 0.1 k/uL (0-0.7); Eosinophils % (A) 2 %; HCT 36.9 % (34.0-46.0); HGB 12.2 gm/dL (11.4-16.0); Luc # (Auto) 0.13; Luc % (Auto) 2; Lymphocytes # (A) 2.9 k/uL (1.0-4.8); Lymphocytes % (A) 52 %; MCH 29.3 pg (25.0-35.0); MCV 88.8 fL (80.0-100.0); Mean Platelet Volume 7.1; Monocytes # (A) 0.2 k/uL (0-1.0); Monocytes % (A) 4 %; Neutrophils # (A) 2.3 k/uL (1.3-7.7); Neutrophils % (A) 41 %; RBC 4.16 m/uL (3.80-5.40); RDW 12.3 % (11.5-15.5); WBC 5.5 k/uL (3.8-10.6); WBC (Perox) 5.33
--- NOTE | 2017-06-15 19:25 | XR ---
EXAMINATION TYPE: XR chest 2V DATE OF EXAM: 06/15/2017 COMPARISON: 06/09/2017 HISTORY: Headache TECHNIQUE: Frontal and lateral views of the chest are obtained. FINDINGS: There is old left thoracotomy defect. There is a plate with screws fusing the mid thoracic spine. There is slight thoracic kyphotic deformity. Lungs are clear of consolidation. There is no heart failure. There is no sign of pleural effusion. IMPRESSION: No active cardiopulmonary disease. No change. Normal heart.
[2017-06-15 19:27] LABS: Anion Gap 8 mmol/L; Blood Urea Nitrogen 23 mg/dL (7-17); Calcium 9.1 mg/dL (8.4-10.2); Carbon Dioxide 27 mmol/L (22-30); Chloride 104 mmol/L (98-107); Glucose 82 mg/dL (74-99); Non-African American GFR(MDRD) >60 (>60 ml/min/1.73 sqM); Potassium 3.5 mmol/L (3.5-5.1); Sodium 139 mmol/L (137-145)
[2017-06-15 20:14] VITALS: RESP 18; TEMP 98.5
[2017-06-15 20:50] VITALS: BP 122/81; PULSE 81
== END 2017-06-15 20:50 | disposition home or self-care (01) ==
LOC: EC 16:38
DX: G44.209 Tension-type headache, unspecified, not intractable (principal); F41.9 Anxiety disorder, unspecified; R06.02 Shortness of breath; I10 Essential (primary) hypertension; E03.9 Hypothyroidism, unspecified; F32.9 Major depressive disorder, single episode, unspecified; Z87.891 Personal history of nicotine dependence; Z79.899 Other long term (current) drug therapy; Z88.2 Allergy status to sulfonamides; Z88.8 Allergy status to other drugs, medicaments and biological substances; Z91.09 Other allergy status, other than to drugs and biological substances
CPT/HCPCS: 36415; 93005; 85379; 83880; 80048; 84484; 85025; 71020; 99284; 96374; 96375 ×2; J1885; J3360

== ENCOUNTER 2017-08-17 02:14 | Emergency (ER) | payer MEDICARE, OTHER ==
[2017-08-17 02:45] VITALS: RESP 18
[2017-08-17] MEDS ORDERED: KETOROLAC 60 MG/2 ML VIAL IM STA (03:03)
[2017-08-17] MEDS ORDERED: MORPHINE SULFATE 5 MG/ML SYRINGE IM STA (03:05)
--- NOTE | 2017-08-17 03:27 | ED ---
Fall HPI - General Chief Complaint: Fall Stated Complaint: FAll Time Seen by Provider: 08/17/17 02:54 Source: patient, RN notes reviewed, old records reviewed Mode of arrival: ambulatory - History of Present Illness Initial Comments: This patient is a 61-year-old female presents today with chief complaint of left -sided rib pain. Patient reports that she was walking in a parking lot and tripped and fell. She reports that she landed on her left side and knees. She reports that her knees are fine no difficulty with ambulation. She states that she has pain whenever she takes a deep breath in her left rib side. She states she's had no bruising. She's been doing heat and ice. She did take one of her at home pain medications. Patient reports that she has a history of thoracic spinal fusion. She reports she had a thoracotomy ratio rib to assist with a spinal fusion. She denies any head injury or neck injury. She denies any nausea or vomiting or specific abdominal pain. She has history of gastric sleeve surgery as well. - Related Data Home Medications Medication Instructions Recorded Confirmed Levothyroxine Sodium [Synthroid] 88 mcg PO DAILY 12/03/13 07/02/17 Fluticasone Nasal [place] [Flonase 1 - 2 spray NASAL DAILY PRN 12/29/14 07/02/17 Nasal [place]] Montelukast Sodium [Singulair] 10 mg PO HS 12/18/15 07/02/17 Multivitamins, Thera [Multivitamin 1 tab PO DAILY 04/24/16 07/02/17 (formulary)] DULoxetine HCL [Cymbalta] 90 mg PO QAM 04/16/17 07/02/17 oxyCODONE ER [OxyCONTIN] 15 mg PO Q12HR PRN 04/16/17 07/02/17 Lisinopril 30 mg PO DAILY 06/09/17 07/02/17 Atorvastatin [Lipitor] 40 mg PO HS 06/15/17 07/02/17 amLODIPine [Norvasc] 5 mg PO DAILY 06/15/17 07/02/17 Previous Rx's Medication Instructions Recorded Aspirin 81 mg PO DAILY chew 06/10/17 hydrOXYzine PAMOATE [Vistaril] 50 mg PO TID PRN #20 capsule 06/15/17 Meclizine [Antivert] 25 mg PO TID #20 tab 07/02/17 Allergies Allergy/AdvReac Type Severity Reaction Status Date / Time adhesive tape Allergy Unknown Verified 08/17/17 02:45 lamotrigine [From Lamictal] Allergy Rash/Hives Verified 08/17/17 02:45 Sulfa (Sulfonamide Allergy Rash/Hives Verified 08/17/17 02:45 Antibiotics) Review of Systems ROS Statement: Those systems with pertinent positive or pertinent negative responses have been documented in the HPI. ROS Other: All systems not noted in ROS Statement are negative. Past Medical History Past Medical History: CVA/TIA, Eye Disorder, Fibromyalgia, Hypertension, Liver Disease, Osteoarthritis (OA), Rheumatoid Arthritis (RA), Skin Disorder, Sleep Apnea/CPAP/BIPAP, Thyroid Disorder Additional Past Medical History / Comment(s): Hepatitis C - in remission, neuorpathy bilateral hands and feet,IBS, hx colitis, frequent headaches, varicose veins bilaterally, dermatitis,hx psoriasis, chronic UTI's, raymauds- hands and feet, glaucoma bilaterally, hypothyroid. bariatric sleeve 12-27-15 History of Any Multi-Drug Resistant Organisms: None Reported Past Surgical History: Appendectomy, Back Surgery, Bariatric Surgery, Orthopedic Surgery, Tonsillectomy Additional Past Surgical History / Comment(s): 12/27/15 laparoscopic sleeve gastrectomy with EGD. Other surgical hx: EGD/colonoscopy, nasal surgery, left hand-tendon surgery in thumb with carpal tunnel and trigger finger, RUTH KNEES AND ANKLES ARTHROSCOPY, ruth cataracts Sleeve Past Anesthesia/Blood Transfusion Reactions: Motion Sickness Past Psychological History: Anxiety, Depression Smoking Status: Former smoker Past Alcohol Use History: None Reported Past Drug Use History: None Reported - Past Family History Mother Family Medical History: Diabetes Mellitus, Renal Disease Additional Family Medical History / Comment(s): Mother is 80yrs old. Father Family Medical History: Cancer, COPD Additional Family Medical History / Comment(s): PROSTATE and SKIN cancer. at 82 of COPD. Brother(s) Family Medical History: Cancer Additional Family Medical History / Comment(s): PROSTATE, skin General Exam - General Exam Comments Initial Comments: This patient is a 61-year-old female. No acute distress. Limitations: no limitations General appearance: alert, in no apparent distress Head exam: Present: atraumatic, normocephalic, normal inspection Eye exam: Present: normal appearance, PERRL, EOMI. Absent: scleral icterus, conjunctival injection, periorbital swelling ENT exam: Present: normal exam, mucous membranes moist Neck exam: Present: normal inspection. Absent: tenderness, meningismus, lymphadenopathy Respiratory exam: Present: normal lung sounds bilaterally, chest wall tenderness (Left lower rib chest wall tenderness. Tender over ribs 9 and 10.). Absent: respiratory distress, wheezes, rales, rhonchi, stridor Cardiovascular Exam: Present: regular rate, normal rhythm, normal heart sounds. Absent: systolic murmur, diastolic murmur, rubs, gallop, clicks GI/Abdominal exam: Present: soft, normal bowel sounds. Absent: distended, tenderness, guarding, rebound, rigid Extremities exam: Present: normal inspection, full ROM, normal capillary refill. Absent: tenderness, pedal edema, joint swelling, calf tenderness Back exam: Present: normal inspection Neurological exam: Present: alert, oriented X3, CN II-XII intact Psychiatric exam: Present: normal affect, normal mood Course Vital Signs 08/17/17 02:42 Temperature 98 F Pulse Rate 71 Respiratory 18 Rate Blood Pressure 120/77 O2 Sat by Pulse 98 Oximetry Medical Decision Making - Medical Decision Making This patient is a 61-year-old female left shoulder and left rib pain after she fell and parking lot earlier today. She reports his been painful whenever she takes a deep breath. She is concerned for rib injury. She does have a history of left rib thoracotomy for previous surgery. Patient has range of motion of her shoulder. She is tender palpation over the left lower ribs. No bruising noted. Lungs are clear bilaterally. Chest x-ray was reviewed and shows no significant acute process. No evidence of any rib fractures. Left shoulder x- ray was reviewed and negative for any acute process. Patient was given IM pain medication. I discussed that she should follow-up with primary care physician. She is on a pain contract and will take her at home pain medicine. Request a work note for tomorrow. Patient will be discharged at this time. - Radiology Data Radiology results: report reviewed Chest x-ray shows evidence of left rib thoracotomy. No acute process noted. Left shoulder x-ray was reviewed and negative for any acute process. Disposition Clinical Impression: Rib pain on left side, Left shoulder strain Disposition: HOME SELF-CARE Condition: Good Instructions: Costochondritis (ED) Additional Instructions: Patient advised to take her at home pain medication. Apply ice over the area. Continue to take frequent deep breaths to ensure U do not developing pneumonia. Patient follow-up with primary care physician of symptoms are continuing to persist. Return to the emergency department if any alarming signs or symptoms occur. Referrals: Aquilino Sow DO [Primary Care Provider] - 1-2 days Time of Disposition: 04:00
--- NOTE | 2017-08-17 03:35 | XR ---
EXAM: XR Left Ribs and AP Chest, 3 or More Views CLINICAL HISTORY: Reason: Pain TECHNIQUE: Frontal and oblique views of the left ribs and frontal view of the chest. COMPARISON: No relevant prior studies available. FINDINGS: Lungs: Unremarkable. No consolidation. Pleural space: Unremarkable. No pneumothorax. Heart: Unremarkable. No cardiomegaly. Mediastinum: Unremarkable. Bones/joints: Surgical hardware in the midthoracic spine. No evidence of displaced rib fracture. Upper abdomen: Surgical clips in the left upper quadrant. Other findings: Stable left thoracotomy defect. IMPRESSION: No acute displaced rib fracture. Evidence of prior left thoracotomy.
--- NOTE | 2017-08-17 03:43 | XR ---
EXAM: XR Left Shoulder Complete, 2 or More Views CLINICAL HISTORY: Reason: Pain TECHNIQUE: Two or more views of the left shoulder. COMPARISON: No relevant prior studies available. FINDINGS: Bones/joints: Degenerative changes at the acromioclavicular joint. No acute fracture. No dislocation. Soft tissues: Unremarkable. IMPRESSION: Normal left shoulder x-rays.
[2017-08-17 04:11] VITALS: BP 136/89; PULSE 76; TEMP 98.6
== END 2017-08-17 04:10 | disposition home or self-care (01) ==
LOC: EC 02:14
DX: S46.912A Strain of unspecified muscle, fascia and tendon at shoulder and upper arm level, left arm, initial encounter (principal); R07.81 Pleurodynia; M79.7 Fibromyalgia; I10 Essential (primary) hypertension; E03.9 Hypothyroidism, unspecified; F41.9 Anxiety disorder, unspecified; F32.9 Major depressive disorder, single episode, unspecified; G47.30 Sleep apnea, unspecified; Z99.89 Dependence on other enabling machines and devices; Z87.891 Personal history of nicotine dependence; Z98.890 Other specified postprocedural states; Z86.73 Personal history of transient ischemic attack (TIA), and cerebral infarction without residual deficits; Z79.899 Other long term (current) drug therapy; Z91.048 Other nonmedicinal substance allergy status; Z88.8 Allergy status to other drugs, medicaments and biological substances; Z88.2 Allergy status to sulfonamides; W01.0XXA Fall on same level from slipping, tripping and stumbling without subsequent striking against object, initial encounter; Y92.481 Parking lot as the place of occurrence of the external cause; Y93.01 Activity, walking, marching and hiking
CPT/HCPCS: 71101; 73030; 99284; 96372 ×2; J1885; J2274

== ENCOUNTER 2017-08-21 08:55 | Emergency (ER) | payer MEDICARE, OTHER ==
[2017-08-21 09:06] VITALS: BP 136/82; PULSE 68; RESP 18; TEMP 98.2
[2017-08-21] MEDS ORDERED: HYDROmorphone 2 MG/ML 1 ML SYRINGE IM STA (09:45)
[2017-08-21] MEDS ORDERED: ONDANSETRON ODT 4 MG TAB PO STA (09:45)
--- NOTE | 2017-08-21 09:58 | ED ---
General Adult HPI - General Chief complaint: Chest Pain Stated complaint: Fall/ Breast pain Time Seen by Provider: 08/21/17 09:39 Source: patient, RN notes reviewed Mode of arrival: wheelchair Limitations: no limitations - History of Present Illness Initial comments: Patient 61-year-old female who presents emergency room today with a chief complaint of left sided rib pain since a fall on Thursday night. She states she was walking out of a store tripped on the pavement falling down to the left side. Does admit that she's had some pain to the left anterior lateral ribs. States she was seen here in the emergency room. States she has been taking oxycodone that she takes for her back pain with little relief of the pain over the last few days. She states it is worse with any movements. She states she coughs or sneezes it is worse. She admits that she did not take her pain medication this morning. She states she had an early appointment for ultrasound here at the hospital. States getting out of the ultrasound she was having increased pain decided to come here the emergency room. Patient denies any other complaints or symptoms. Patient denies any recent fever, chills, shortness of breath, chest pain, abdominal pain, nausea or vomiting, numbness or tingling, dysuria or hematuria, constipation or diarrhea, headaches or visual changes, or any other complaints. - Related Data Home Medications Medication Instructions Recorded Confirmed Levothyroxine Sodium [Synthroid] 88 mcg PO DAILY 12/03/13 08/21/17 Fluticasone Nasal [place] [Flonase 1 - 2 spray NASAL DAILY PRN 12/29/14 08/21/17 Nasal [place]] Montelukast Sodium [Singulair] 10 mg PO HS 12/18/15 08/21/17 Multivitamins, Thera [Multivitamin 1 tab PO DAILY 04/24/16 08/21/17 (formulary)] oxyCODONE ER [OxyCONTIN] 15 mg PO Q12HR PRN 04/16/17 08/21/17 Lisinopril 30 mg PO DAILY 06/09/17 08/21/17 Atorvastatin [Lipitor] 40 mg PO HS 06/15/17 08/21/17 amLODIPine [Norvasc] 5 mg PO DAILY 06/15/17 08/21/17 DULoxetine HCL [Cymbalta] 120 mg PO DAILY 08/21/17 08/21/17 Previous Rx's Medication Instructions Recorded Aspirin 81 mg PO DAILY chew 06/10/17 Allergies Allergy/AdvReac Type Severity Reaction Status Date / Time adhesive tape Allergy Unknown Verified 08/21/17 09:34 lamotrigine [From Lamictal] Allergy Rash/Hives Verified 08/21/17 09:34 Sulfa (Sulfonamide Allergy Rash/Hives Verified 08/21/17 09:34 Antibiotics) Review of Systems ROS Statement: Those systems with pertinent positive or pertinent negative responses have been documented in the HPI. ROS Other: All systems not noted in ROS Statement are negative. Past Medical History Past Medical History: CVA/TIA, Eye Disorder, Fibromyalgia, Hypertension, Liver Disease, Osteoarthritis (OA), Rheumatoid Arthritis (RA), Skin Disorder, Sleep Apnea/CPAP/BIPAP, Thyroid Disorder Additional Past Medical History / Comment(s): Hepatitis C - in remission, neuorpathy bilateral hands and feet,IBS, hx colitis, frequent headaches, varicose veins bilaterally, dermatitis,hx psoriasis, chronic UTI's, raymauds- hands and feet, glaucoma bilaterally, hypothyroid. bariatric sleeve 12-27-15 History of Any Multi-Drug Resistant Organisms: None Reported Past Surgical History: Appendectomy, Back Surgery, Bariatric Surgery, Orthopedic Surgery, Tonsillectomy Additional Past Surgical History / Comment(s): 12/27/15 laparoscopic sleeve gastrectomy with EGD. Other surgical hx: EGD/colonoscopy, nasal surgery, left hand-tendon surgery in thumb with carpal tunnel and trigger finger, RUTH KNEES AND ANKLES ARTHROSCOPY, ruth cataracts Sleeve Past Anesthesia/Blood Transfusion Reactions: Motion Sickness Past Psychological History: Anxiety, Depression Smoking Status: Former smoker Past Alcohol Use History: None Reported Past Drug Use History: None Reported - Past Family History Mother Family Medical History: Diabetes Mellitus, Renal Disease Additional Family Medical History / Comment(s): Mother is 80yrs old. Father Family Medical History: Cancer, COPD Additional Family Medical History / Comment(s): PROSTATE and SKIN cancer. at 82 of COPD. Brother(s) Family Medical History: Cancer Additional Family Medical History / Comment(s): PROSTATE, skin General Exam - General Exam Comments Initial Comments: General: The patient is awake and alert, in no distress, and does not appear acutely ill. Eye: Pupils are equal, round and reactive to light, extra-ocular movements are intact. No nystagmus. There is normal conjunctiva bilaterally. No signs of icterus. Ears, nose, mouth and throat: There are moist mucous membranes and no oral lesions. Neck: The neck is supple, there is no tenderness or JVD. Cardiovascular: There is a regular rate and rhythm. No murmur, rub or gallop is appreciated. Respiratory: Lungs are clear to auscultation, respirations are non-labored, breath sounds are equal. No wheezes, stridor, rales, or rhonchi. Gastrointestinal: Soft, non-distended, non-tender abdomen without masses or organomegaly noted. There is no rebound or guarding present. No CVA tenderness. Bowel sounds are unremarkable. Musculoskeletal: Normal ROM. Tender to palpation over the left anterior lateral ribs. No bruising no obvious deformity. Strength 5/5. Sensation intact. Pulses equal bilaterally 2+. Neurological: A&O x 3. CN II-XII intact, There are no obvious motor or sensory deficits. Coordination appears grossly intact. Speech is normal. Skin: Skin is warm and dry and no rashes or lesions are noted. Psychiatric: Cooperative, appropriate mood & affect, normal judgment. Limitations: no limitations Course Vital Signs 08/21/17 09:01 Temperature 98.2 F Pulse Rate 68 Respiratory 18 Rate Blood Pressure 136/82 O2 Sat by Pulse 100 Oximetry Medical Decision Making - Medical Decision Making Patient reexamined at this time shows no signs of distress. Patient resting comfortably. Feeling better after pain medication. Patient did not take her pain medication this morning because she had a early ultrasound. Patient states feeling much better at this time. Patient's chest x-ray reviewed showing no acute changes. Results were discussed with the patient. This time patient is advised to hold breast area for any coughing or sneezing. Advised follow-up the family doctor the next 2 days return to emergency room for any symptoms increase or worsen. Patient states understanding and is in agreement. Disposition Clinical Impression: Rib contusion Disposition: HOME SELF-CARE Condition: Good Instructions: Rib Contusion (ED) Additional Instructions: Please use medication as discussed. Please follow-up with family doctor in the next 2 days of symptoms have not improved. Please return to emergency room if the symptoms increase or worsen or for any other concerns. Referrals: Aquilino Sow DO [Primary Care Provider] - 1-2 days Time of Disposition: 11:15
--- NOTE | 2017-08-21 10:57 | XR ---
EXAMINATION TYPE: XR chest 2V DATE OF EXAM: 08/21/2017 COMPARISON: 07/02/2017 HISTORY: Left rib pain TECHNIQUE: Frontal and lateral views of the chest are obtained. FINDINGS: There is no focal air space opacity, pleural effusion, or pneumothorax seen. The cardiac silhouette size is within normal limits. The osseous structures are intact. Left-sided thoracotomy changes are noted. There is surgical absence of the posterior portions of ribs 6 and 7 on the left. P ostsurgical changes of the chest are noted. Right-sided ribs are unremarkable. Lungs are clear withou t evidence of focal consolidation, pleural effusion or pneumothorax. Cardiac silhouette is upper limi ts of normal. IMPRESSION: No acute cardiopulmonary process. Left thoracotomy defect, as seen on the prior.
== END 2017-08-21 11:21 | disposition home or self-care (01) ==
LOC: EC 08:55
DX: S20.212D Contusion of left front wall of thorax, subsequent encounter (principal); M54.9 Dorsalgia, unspecified; I10 Essential (primary) hypertension; E03.9 Hypothyroidism, unspecified; G47.30 Sleep apnea, unspecified; Z99.89 Dependence on other enabling machines and devices; F32.9 Major depressive disorder, single episode, unspecified; F41.9 Anxiety disorder, unspecified; Z87.891 Personal history of nicotine dependence; Z86.19 Personal history of other infectious and parasitic diseases; Z79.899 Other long term (current) drug therapy; Z88.2 Allergy status to sulfonamides; Z88.8 Allergy status to other drugs, medicaments and biological substances; Z91.048 Other nonmedicinal substance allergy status; W01.0XXD Fall on same level from slipping, tripping and stumbling without subsequent striking against object, subsequent encounter
CPT/HCPCS: 71046; 99284; 96372; J1170; 76770

== ENCOUNTER → 2017-08-21 | Outpatient (CLI) | payer MEDICARE, OTHER ==
--- NOTE | 2017-08-21 09:01 | US ---
EXAMINATION TYPE: US kidneys/renal and bladder DATE OF EXAM: 08/21/2017 COMPARISON: CT abdomen and pelvis June 18, 2016 CLINICAL HISTORY: N30.20 Chronic Cystitis. EXAM MEASUREMENTS: Right Kidney: 11.5 x 4.6 x 5.1 cm Left Kidney: 11.5 x 4.5 x 5.2 cm Right Kidney: No hydronephrosis or masses seen Left Kidney: No hydronephrosis or masses seen Bladder: wnl There is no evidence for hydronephrosis at this point in time. No nephrolithiasis is seen. No yessy s are identified. The urinary bladder is not greatly distended without intraluminal mass identified. Evaluation suboptimal due to poor distention. Bilateral ureteral jets are not seen. IMPRESSION: Poorly distended bladder otherwise unremarkable study.
== END | disposition home or self-care (01) ==
LOC: RADUSWWP 08:18
PROVIDERS: ATTEND Urology
DX: N32.89 Other specified disorders of bladder (principal); Z88.2 Allergy status to sulfonamides; Z88.8 Allergy status to other drugs, medicaments and biological substances
CPT/HCPCS: 76770

== ENCOUNTER → 2017-09-07 | Outpatient (CLI) | payer MEDICARE, OTHER ==
--- NOTE | 2017-09-08 06:41 | XR ---
EXAMINATION TYPE: XR thoracic spine complete DATE OF EXAM: 09/07/2017 CLINICAL HISTORY: Back surgery 18 months ago, progress study. TECHNIQUE: Frontal, lateral, and swimmer's view of thoracic spine are obtained. COMPARISON: Chest x-ray August 21, 2017 FINDINGS: Thoracic spine show stable alignment with exaggerated thoracic kyphosis on lateral view wit hout evidence of acute fracture or dislocation. There is left lateral fusion hardware from T7 through T9 levels redemonstrated. There is artificial disc material T7-T8 T8 and T8-T9 levels redemonstrated . Vertebral body heights are maintained. There is mild to moderate multilevel disc space narrowing wi th mild multilevel anterior and lateral spurring redemonstrated. There is partial resection of it senior analyst ior left seventh rib. IMPRESSION: Postsurgical change T7-T9 level with stable and satisfactory alignment.
== END | disposition home or self-care (01) ==
LOC: RADXRMAIN 16:55
PROVIDERS: ATTEND Family Medicine
DX: M51.35 Other intervertebral disc degeneration, thoracolumbar region (principal); Z98.890 Other specified postprocedural states
CPT/HCPCS: 72072

== ENCOUNTER → 2017-09-30 | Outpatient (CLI) | payer MEDICARE, OTHER ==
[2017-09-30 13:53] LABS: HCT 38.1 % (34.0-46.0); HGB 12.8 gm/dL (11.4-16.0); MCH 30.2 pg (25.0-35.0); MCHC 33.7 g/dL (31.0-37.0); MCV 89.4 fL (80.0-100.0); Mean Platelet Volume 6.8; Platelet Count 201 k/uL (150-450); RBC 4.26 m/uL (3.80-5.40); RDW 13.1 % (11.5-15.5); WBC 6.5 k/uL (3.8-10.6)
[2017-09-30 14:01] LABS: Albumin 4.1 g/dL (3.5-5.0); Bilirubin, Delta 0.3 mg/dL (0.0-0.2); Total Bilirubin 0.3 mg/dL (0.2-1.3); Total Protein 6.6 g/dL (6.3-8.2)
== END ==
LOC: LABWHC1 13:22
PROVIDERS: ATTEND Physician Assistant
DX: B18.2 Chronic viral hepatitis C (principal)
CPT/HCPCS: 36415; 80076; 85027

== ENCOUNTER → 2017-10-07 | Outpatient (CLI) | payer MEDICARE, OTHER ==
--- NOTE | 2017-10-07 16:14 | MR ---
EXAMINATION TYPE: MR colon wo con DATE OF EXAM: 10/07/2017 COMPARISON: 07/22/2011 HISTORY: Neck and back pain TECHNIQUE: T1 and T2 axial and sagittal images of the lumbar spine are submitted. FINDINGS: There is no abnormal signal seen within the visualized spinal cord or paraspinal soft tissu es. Parapelvic left renal cyst noted. At T12-L1 there is moderate degenerative disc disease and facet arthropathy. No disc herniation or ca nal stenosis. No foraminal encroachment. At L1-2 there is mild degenerative disc disease but no disc herniation or canal stenosis. No foramina l encroachment. At L2-3 there is there is hypertrophic change of the facets but no disc herniation or canal stenosis. No foraminal encroachment. At L3-4 there is moderate degenerative disc disease with circumferential disc bulging. There is hyper trophy of the facet joints and ligamentum flavum. There is no canal stenosis. Mild bilateral foramina l encroachment. Finding appears stable. At L4-5 there is more advanced facet arthropathy. There is no disc herniation or canal stenosis. Neur al foramina patent. At L5-S1 there is facet arthropathy but no disc herniation, canal stenosis, or foraminal encroachment . IMPRESSION: 1. Stable MRI lumbar spine demonstrating multilevel degenerative disc disease with most marked findin gs at L3-L4. Broad-based and circumferential disc bulging with mild effacement of thecal sac but no c anal stenosis. Mild bilateral foraminal encroachment. 2. Multilevel facet arthropathy. EXAMINATION TYPE: MR yana bourgeois con DATE OF EXAM: 10/07/2017 COMPARISON: 07/22/2011 HISTORY: Neck and back pain TECHNIQUE: T1 sagittal and coronal, T2 sagittal, and gradient echo axial views of the cervical spine are submitted. FINDINGS: The cranial cervical junction is preserved. There is no abnormal signal seen within the sp inal cord or paraspinal soft tissues. Prominent posterior fossa cyst noted on the sagittal images may be related to a prominent cisterna magna or arachnoid cyst. Findings stable compared to prior exam. At C2-3 there is degenerative disc disease. No disc herniation or canal stenosis. No foraminal encroa chment. At C3-4 there is degenerative disc disease and broad-based central disc protrusion with moderate effa cement of thecal sac. No spinal cord contact. Findings are stable. Uncovertebral joint hypertrophy no kiana with mild facet arthropathy. Findings result in moderate bilateral foraminal encroachment. At C4-5 there is mild facet arthropathy. No disc herniation or canal stenosis. No foraminal encroachm ent. At C5-6 there is degenerative disc disease with central and left paracentral disc bulging or small pr otrusion. No spinal cord contact. There is facet arthropathy and mild uncovertebral joint hypertrophy with mild bilateral foraminal encroachment. At C6-7 there is no disc herniation or canal stenosis. No foraminal encroachment. Mild degenerative d isc disease. At C7-T1 there is no disc herniation or canal stenosis. No foraminal encroachment. There is multilevel mild to moderate degenerative disc disease with disc space narrowing and desiccat ion. IMPRESSION: 1. Stable multilevel degenerative disc disease with disc protrusion centrally at C3-C4 resulting in moderate compression of the thecal sac but no spinal cord contact. There is mild bilateral foraminal encroachment. 2. Stable disc bulging or small protrusion C5-C6.
== END | disposition home or self-care (01) ==
LOC: RADMRIMAIN 13:30
PROVIDERS: ATTEND Neurological Surgery
DX: M50.11 Cervical disc disorder with radiculopathy, high cervical region (principal); M50.01 Cervical disc disorder with myelopathy, high cervical region; M51.16 Intervertebral disc disorders with radiculopathy, lumbar region; M46.96 Unspecified inflammatory spondylopathy, lumbar region
CPT/HCPCS: 72141; 72148

== ENCOUNTER → 2017-10-30 | Outpatient (CLI) | payer MEDICARE, OTHER ==
[2017-10-30 14:13] LABS: Blood Urea Nitrogen 28 mg/dL (7-17)
[2017-11-03 10:58] LABS: Hepatitis BE Antigen NEG (Negative)
[2017-11-03 11:00] LABS: Hepatitis BE Antibody NEG (Negative)
== END | disposition home or self-care (01) ==
LOC: LABWHC1 13:22
PROVIDERS: ATTEND Dermatology
DX: L40.0 Psoriasis vulgaris (principal)
CPT/HCPCS: 36415; 82565; 84520; 86038; 86480; 86707; 87350

== ENCOUNTER → 2017-11-04 | Outpatient (CLI) | payer MEDICARE, OTHER ==
[2017-11-04 15:13] VITALS: BP 136/88; PULSE 85; TEMP 97.7; BMI 32.1
[2017-11-04 16:07] LABS: HCT 39.3 % (34.0-46.0); MCH 29.6 pg (25.0-35.0); MCHC 33.1 g/dL (31.0-37.0); MCV 89.6 fL (80.0-100.0); Mean Platelet Volume 7.3; Platelet Count 221 k/uL (150-450); RBC 4.39 m/uL (3.80-5.40); RDW 13.7 % (11.5-15.5); WBC 7.7 k/uL (3.8-10.6)
[2017-11-04 16:12] LABS: INR 1.1 (<1.2); Partial Thromboplastin Time 23.7 sec (22.0-30.0); Prothrombin Time 10.6 sec (9.0-12.0)
[2017-11-04 16:22] LABS: ALT 57 U/L (9-52); AST 44 U/L (14-36); Albumin 4.2 g/dL (3.5-5.0); Alkaline Phosphatase 64 U/L (38-126); Anion Gap 14 mmol/L; Blood Urea Nitrogen 30 mg/dL (7-17); Calcium 9.5 mg/dL (8.4-10.2); Carbon Dioxide 28 mmol/L (22-30); Chloride 105 mmol/L (98-107); Cholesterol 150 mg/dL (<200); Glucose 94 mg/dL (74-99); HDL Cholesterol 89 mg/dL (40-60); LDL Cholesterol,Calculated 46 mg/dL (0-99); Magnesium 1.8 mg/dL (1.6-2.3); Phosphorus 4.6 mg/dL (2.5-4.5); Potassium 4.1 mmol/L (3.5-5.1); Sodium 147 mmol/L (137-145); Total Bilirubin 0.3 mg/dL (0.2-1.3); Total Protein 6.8 g/dL (6.3-8.2); Triglycerides 77 mg/dL (<150)
[2017-11-05 00:32] LABS: Iron Saturation 19.35 (12.00-45.00)
[2017-11-05 00:38] LABS: Vitamin D 25 Hydroxy 29.2 ng/mL (30.0-100.0)
[2017-11-05 00:53] LABS: Folate, Serum 16.5 ng/mL
[2017-11-05 02:22] LABS: Hemoglobin A1C 5.3 % (4.0-6.0)
[2017-11-05 03:53] LABS: Parathyroid Hormone Intact 73.7 pg/mL (14.0-72.0)
[2017-11-05 12:31] LABS: Zinc, Serum 67 ug/dL (60-130)
[2017-11-06 08:46] LABS: Vitamin A 49 ug/dL (38-106)
[2017-11-06 21:13] LABS: Selenium 130 mcg/L (63-160)
[2017-11-09 06:04] LABS: Vitamin B1 47 ug/L (38-122)
--- NOTE | 2017-11-21 21:58 | P.PN ---
Subjective Progress Note Date: 11/04/17 DATE OF SERVICE: 11/04/2017 CHIEF COMPLAINT: Follow-up sleeve gastrectomy HISTORY OF PRESENT ILLNESS: Christa Adams is a 61-year-old female who is status post sleeve gastrectomy in December [address] Alvarenga. For her height of 5 feet 6-1/2 inches, she was 263 pounds. Body mass index was 41.9. Her ideal body weight is 154 pounds. Today she comes in weighing 202 pounds. Percent excess weight loss is 56%. Since her last visit 5 months ago, she has gained 1 pound. Total weight loss 61 pounds. She is looking to get a breast reduction. Separately she reports abdominal pain. She is also looking into panniculectomy. PAST MEDICAL HISTORY: 1. Hepatitis C in remission. 2. Fibromyalgia. 3. Raynaud's. 4. Obstructive sleep apnea. 5. Morbid obesity, BMI 41.9, initial 6. Irritable bowel syndrome. 7. Depression. 8. Gastroesophageal reflux disease. 9. Neuropathy. 10. Hypertension. 11. Hypothyroidism. 12. Osteoarthritis of the bilateral knees. 13. Osteoarthritis of the lower back. 14. Diabetes type 2. 15. Osteoarthritis of the bilateral hips 16. Osteoarthritis bilateral ankle pain. PAST SURGICAL HISTORY: 1. She has had repeat colonoscopies for history of irritable bowel syndrome. 2. Appendectomy. 3. Tonsillectomy. MEDICATIONS: 1. Levothyroxine. 2. Flonase nasal spray 3. Nystatin powder. 4. OxyContin. 5. Multivitamin. 6. Singulair. 7. Lisinopril. 8. Cymbalta. 9. Aspirin. 10. Lipitor 11. Antivert 12. Norvasc 13. Vistaril ALLERGIES: 1. Lamictal. 2. Sulfa. 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 As a result, she has developed hepatitis C. Also reports former tobacco use as well as former IV drug abuse. FAMILY HISTORY: Negative for lupus or inflammatory bowel disease. She does have family history of morbid obesity. She denies any personal familial history of stomach or esophageal cancer. She denies any familial history of lupus. She denies any familial history or personal history of Crohn's disease or ulcerative colitis. She does have a family history of blood clots including an aunt who had DVT in the left leg. She denies any celiac disease in the family. She reports that everyone in her family overall has troubles with their weight. She had a sister who had an adjustable gastric band. REVIEW OF SYSTEMS: CONSTITUTIONAL: For her height of 5 feet 6-1/2 inches, she was 263 pounds. Body mass index was 41.9. Her ideal body weight is 154 pounds. Today she comes in weighing 202 pounds. Percent excess weight loss is 56%. Since her last visit 5 months ago, she has gained 1 pound. Total weight loss 61 pounds. HEENT: No troubles with vision or hearing. Denies dysphagia. She does report vocal cord irritation from gastroesophageal reflux disease. RESPIRATORY: Obstructive sleep apnea, resolved. No reports of pneumonia. CARDIOVASCULAR: Has hypertension. GASTROINTESTINAL: Has severe gastroesophageal reflux disease including irritable bowel syndrome. No recent blood in stools. She does report having hepatitis C which is in remission and has developed neuropathy as a result. She reports food intolerance including milk intolerance. ENDOCRINE: She has history of thyroid disorder with hypothyroidism. Also she has history of blood sugar glucose intolerance now resolved. MUSCULOSKELETAL: Has osteoarthritis of the lower back including bilateral hips and bilateral knee secondary to morbid obesity. NEURO: Has neuropathy. No reports of stroke or seizure disorders. PSYCH: No reports of recent suicidal ideation; however, she has depression. Also has chronic pain syndrome. She also reports a personal history of binge eating disorder including stress eating. HEMATOLOGIC: No personal history of venothrombolic event; however, she did have an aunt with DVT of the leg. GENITOURINARY: She comes in with recurrent complaints of chronic bladder infections which she currently sees the urologist. PHYSICAL EXAM: VITAL SIGNS: 5 foot 6-07/28, 202 pounds. Body mass index of 32.2 Vital Signs Temp 97.7 F 11/04/17 15:09 Pulse 85 11/04/17 15:09 Resp BP 136/88 11/04/17 15:09 Pulse Ox GENERAL: Well-developed pleasant female in acute distress. HEENT: No scleral icterus. Extraocular movements grossly intact. Moist buccal mucosa. CHEST: Nonlabored respirations. Equal bilateral excursions. CARDIOVASCULAR: Regular rate and rhythm. 2+ radial pulses ABDOMEN: Protuberant, soft, nontender. Umbilical hernia. MUSCULOSKELETAL: No clubbing, cyanosis or edema. NEURO: No focal or lateralizing signs. Cranial nerves II-12 grossly intact. SKIN: Has panniculitis of the abdomen. Good skin turgor. Well perfused. NECK: Supple lymphadenopathy. LABS: ASSESSMENT: 1. Morbid obesity due to exogenous caloric intake. 2. Body mass index 42 down to 32.2 3. History of binge eating and food disorders. 4. Hypertensive heart disease. 5. Obstructive sleep apnea, resolved. 6. Osteoarthritis of the bilateral extremities, improved. 7. Osteoarthritis of the lower back, improved. 8. Irritable bowel syndrome, improved. 9. Severe gastroesophageal reflux disease. 10. Raynaud's phenomena. 11. Fibromyalgia. 12. History of recurrent bladder infections. 13. Diabetes type 2, resolved. 14. Familial history of venous thrombolic event. 15. History of serous positive hepatitis, now in remission. 16. Past history of IV drug abuse. 17. Status post sleeve gastrectomy. 18. Panniculitis. 19. Elevated liver enzymes PLAN: 1. Recommend bariatric metabolic panel 2. Recommend upper endoscopy for severity of gastroesophageal reflux disease. 3. May benefit from umbilical hernia repair 4. Recommend ultrasound of the gallbladder for risk gallstones. 5. She is looking to panniculectomy however recommend deferral of procedure until weight loss is stable. Also recommend nystatin powder. 6. With a history of chronic pain, recommend peritoneal blocks for surgical procedure. Laboratory Last Values WBC 7.7 k/uL (3.8-10.6) 11/04/17 15:45 RBC 4.39 m/uL (3.80-5.40) 11/04/17 15:45 Hgb 13.0 gm/dL (11.4-16.0) 11/04/17 15:45 Hct 39.3 % (34.0-46.0) 11/04/17 15:45 MCV 89.6 fL (80.0-100.0) 11/04/17 15:45 MCH 29.6 pg (25.0-35.0) 11/04/17 15:45 MCHC 33.1 g/dL (31.0-37.0) 11/04/17 15:45 RDW 13.7 % (11.5-15.5) 11/04/17 15:45 Plt Count 221 k/uL (150-450) 11/04/17 15:45 PT 10.6 sec (9.0-12.0) 11/04/17 15:45 INR 1.1 (<1.2) 11/04/17 15:45 APTT 23.7 sec (22.0-30.0) 11/04/17 15:45 Sodium 147 mmol/L (137-145) H 11/04/17 15:45 Potassium 4.1 mmol/L (3.5-5.1) 11/04/17 15:45 Chloride 105 mmol/L (98-107) 11/04/17 15:45 Carbon Dioxide 28 mmol/L (22-30) 11/04/17 15:45 Anion Gap 14 mmol/L 11/04/17 15:45 BUN 30 mg/dL (7-17) H 11/04/17 15:45 Creatinine 0.70 mg/dL (0.52-1.04) 11/04/17 15:45 Est GFR (CKD-EPI)AfAm >90 (>60 ml/min/1.73 sqM) 11/04/17 15:45 Est GFR (CKD-EPI)NonAf >90 (>60 ml/min/1.73 sqM) 11/04/17 15:45 Glucose 94 mg/dL (74-99) 11/04/17 15:[address] Glu mg/dL 105 11/04/17 15:45 Hemoglobin A1c 5.3 % (4.0-6.0) 11/04/17 15:45 Calcium 9.5 mg/dL (8.4-10.2) 11/04/17 15:45 Phosphorus 4.6 mg/dL (2.5-4.5) H 11/04/17 15:45 Magnesium 1.8 mg/dL (1.6-2.3) 11/04/17 15:45 Iron 66 ug/dL (50-170) 11/04/17 15:45 TIBC 341 ug/dL (228-460) 11/04/17 15:45 Iron Saturation 19.35 (12.00-45.00) 11/04/17 15:45 Ferritin 88.9 ng/mL (10.0-291.0) 11/04/17 15:45 Total Bilirubin 0.3 mg/dL (0.2-1.3) 11/04/17 15:45 AST 44 U/L (14-36) H 11/04/17 15:45 ALT 57 U/L (9-52) H 11/04/17 15:45 Alkaline Phosphatase 64 U/L (38-126) 11/04/17 15:45 Total Protein 6.8 g/dL (6.3-8.2) 11/04/17 15:45 Albumin 4.2 g/dL (3.5-5.0) 11/04/17 15:45 Prealbumin 22.0 mg/dL (18.0-42.0) 11/04/17 15:45 Triglycerides 77 mg/dL (<150) 11/04/17 15:45 Cholesterol 150 mg/dL (<200) 11/04/17 15:45 LDL Cholesterol, Calc 46 mg/dL (0-99) 11/04/17 15:45 HDL Cholesterol 89 mg/dL (40-60) H 11/04/17 15:45 Vitamin A 49 ug/dL (38-106) 11/04/17 15:45 Vitamin B1 47 ug/L (38-122) 11/04/17 15:45 Vitamin B12 845.0 pg/mL (200.0-944.0) 11/04/17 15:45 Vitamin D 25-Hydroxy 29.2 ng/mL (30.0-100.0) L 11/04/17 15:45 Folate 16.5 ng/mL 11/04/17 15:45 TSH 1.100 mIU/L (0.465-4.680) 11/04/17 15:45 PTH Intact 73.7 pg/mL (14.0-72.0) H 11/04/17 15:45 Copper 1433 ug/L (810-1990) 11/04/17 15:45 Selenium 130 mcg/L (63-160) 11/04/17 15:45 Zinc 67 ug/dL (60-130) 11/04/17 15:45 ALT elevated AST elevated HDL elevated Vitamin D low PTH elevated She has elevated liver enzymes. Recommend ultrasound of gallbladder. She has history of hepatitis. Recommend calcium intake of 1200 mg daily. Recommend vitamin D supplement 5000 units daily. Objective - Vital Signs Vital signs: Vital Signs Temp 97.7 F 11/04/17 15:09 Pulse 85 11/04/17 15:09 Resp BP 136/88 11/04/17 15:09 Pulse Ox Intake & Output 11/03/17 11/04/17 11/04/17 18:59 06:59 18:59 Weight 91.807 kg - Labs CBC & Chem 7: 11/04/17 15:45 11/04/17 15:45
== END | disposition home or self-care (01) ==
LOC: BARWHC3 14:57
PROVIDERS: ATTEND Surgery Plastic and Reconstructive Surgery
DX: E21.1 Secondary hyperparathyroidism, not elsewhere classified (principal); D50.9 Iron deficiency anemia, unspecified; K90.9 Intestinal malabsorption, unspecified; E44.0 Moderate protein-calorie malnutrition; K50.90 Crohn's disease, unspecified, without complications; E55.9 Vitamin D deficiency, unspecified; K74.1 Hepatic sclerosis; N19 Unspecified kidney failure; E66.01 Morbid (severe) obesity due to excess calories; Z68.32 Body mass index [BMI] 32.0-32.9, adult; I13.10 Hypertensive heart and chronic kidney disease without heart failure, with stage 1 through stage 4 chronic kidney disease, or unspecified chronic kidney disease; G47.33 Obstructive sleep apnea (adult) (pediatric); Z98.84 Bariatric surgery status; Z87.891 Personal history of nicotine dependence; Z79.82 Long term (current) use of aspirin; M79.7 Fibromyalgia; K58.9 Irritable bowel syndrome, unspecified; K21.9 Gastro-esophageal reflux disease without esophagitis; I73.00 Raynaud's syndrome without gangrene; E03.9 Hypothyroidism, unspecified
CPT/HCPCS: 84255; 84134; 84425; 80061; 80053; 82607; 82728; 82525; 82746; 83540; 83550; 83735; 84100; 84443; 84590; 84630; 85027; 85610; 85730; 82306; 83970; 83036; G0463; 99211

== ENCOUNTER → 2017-11-19 | Outpatient (CLI) | payer MEDICARE, OTHER ==
--- NOTE | 2017-11-19 09:09 | US ---
EXAMINATION TYPE: US gallbladder DATE OF EXAM: 11/19/2017 COMPARISON: US and CT CLINICAL HISTORY: Right upper quadrant pain R10.11. Pt states elevated LFT's and RUQ pain/ history of gastric sleeve surgery EXAM MEASUREMENTS: Liver Length: 14.7 cm Gallbladder Wall: 0.2 cm CBD: 0.5 cm Right Kidney: 10.9 x 4.7 x 4.3 cm Somewhat difficult exam, pt has short torso and excess skin from significant weight loss Pancreas: wnl, tail obscured by overlying bowel gas Liver: Liver is slightly coarsened in echotexture diffusely. This limits evaluation for hepatic mass es. No focal hepatic masses seen on today's examination. Gallbladder: Lumen clear, wall not thickened. No cholelithiasis or biliary sludge. No gallbladder en largement. Evidence for sonographic Walker's sign: No CBD: wnl Right Kidney: wnl IMPRESSION: 1. No sonographic evidence of cholelithiasis or acute cholecystitis. 2. Minimally coarsened hepatic echotexture that may relate to mild hepatic steatosis or hepatocellula r disease. Correlate with serum laboratory values.
== END | disposition home or self-care (01) ==
LOC: RADUSWWP 06:57
PROVIDERS: ATTEND Surgery Plastic and Reconstructive Surgery
DX: R93.2 Abnormal findings on diagnostic imaging of liver and biliary tract (principal); R10.11 Right upper quadrant pain; Z88.2 Allergy status to sulfonamides; Z88.8 Allergy status to other drugs, medicaments and biological substances; Z91.048 Other nonmedicinal substance allergy status
CPT/HCPCS: 76705

== ENCOUNTER 2017-12-09 09:30 | Day surgery (SDC) | payer MEDICARE, OTHER ==
[2017-12-07 11:15] VITALS: BMI 32.3
--- NOTE | 2017-12-09 08:07 | P.GSHP ---
History of Present Illness H&P Date: 12/09/17 CHIEF COMPLAINT: GERD HISTORY OF PRESENT ILLNESS: The patient is a 62-year-old female who presents reports gastroesophageal reflux disease. Upper endoscopy was offered for further evaluation and management. PAST MEDICAL HISTORY: Please see list. PAST SURGICAL HISTORY: Please see list. MEDICATIONS: Please see list. ALLERGIES: Please see list. SOCIAL HISTORY: No illicit drug use FAMILY HISTORY: No reports of Crohn disease or ulcerative colitis. REVIEW OF ORGAN SYSTEMS: CONSTITUTIONAL: No reports of fevers or chills. GI: Denies any blood in stools or constipation. PHYSICAL EXAM: VITAL SIGNS: Stable GENERAL: Well-developed and pleasant in no acute distress. HEENT: No scleral icterus. Extraocular movements grossly intact. Moist buccal mucosa. NECK: Supple without lymphadenopathy. CHEST: Unlabored respirations. Equal bilateral excursions. CARDIOVASCULAR: Regular rate and rhythm. Distal 2+ pulses. ABDOMEN: Soft, nondistended. MUSCULOSKELETAL: No clubbing, cyanosis, or edema. ASSESSMENT: 1. Gastroesophageal reflux disease PLAN: 1. Recommend proceeding with an upper endoscopy Past Medical History Past Medical History: CVA/TIA, Deep Vein Thrombosis (DVT), Eye Disorder, Fibromyalgia, GERD/Reflux, Hyperlipidemia, Hypertension, Liver Disease, Osteoarthritis (OA), Rheumatoid Arthritis (RA), Skin Disorder, Sleep Apnea/CPAP/ BIPAP, Thyroid Disorder Additional Past Medical History / Comment(s): Hepatitis C - in remission, neuorpathy bilateral hands and feet,IBS, hx colitis, frequent headaches, varicose veins bilaterally, psoriasis, chronic UTI's, raymauds-hands and feet, glaucoma bilaterally, History of Any Multi-Drug Resistant Organisms: None Reported Past Surgical History: Appendectomy, Back Surgery, Bariatric Surgery, Orthopedic Surgery, Tonsillectomy Additional Past Surgical History / Comment(s): 12/27/15 laparoscopic sleeve gastrectomy with EGD. Other surgical hx: EGD/colonoscopy, nasal surgery, left hand-tendon surgery in thumb with carpal tunnel and trigger finger, RUTH KNEES AND ANKLES ARTHROSCOPY, ruth cataracts Past Anesthesia/Blood Transfusion Reactions: Motion Sickness Smoking Status: Former smoker - Past Family History Mother Family Medical History: Diabetes Mellitus, Renal Disease Additional Family Medical History / Comment(s): Mother is 80yrs old. Father Family Medical History: Cancer, COPD Additional Family Medical History / Comment(s): PROSTATE and SKIN cancer. at 82 of COPD. Brother(s) Family Medical History: Cancer Additional Family Medical History / Comment(s): PROSTATE, skin Medications and Allergies Home Medications Medication Instructions Recorded Confirmed Type Levothyroxine Sodium [Synthroid] 88 mcg PO DAILY 12/03/13 12/07/17 History Fluticasone Nasal [place] [Flonase 1 - 2 spray NASAL DAILY PRN 12/29/14 12/07/17 History Nasal [place]] Montelukast Sodium [Singulair] 10 mg PO HS PRN 12/18/15 12/07/17 History Multivitamins, Thera [Multivitamin 1 tab PO DAILY 04/24/16 12/07/17 History (formulary)] oxyCODONE ER [OxyCONTIN] 15 mg PO Q12HR PRN 04/16/17 12/07/17 History Lisinopril 30 mg PO DAILY 06/09/17 12/07/17 History Aspirin 81 mg PO DAILY chew 06/10/17 12/07/17 Rx Atorvastatin [Lipitor] 40 mg PO HS 06/15/17 12/07/17 History amLODIPine [Norvasc] 5 mg PO DAILY 06/15/17 12/07/17 History DULoxetine HCL [Cymbalta] 120 mg PO DAILY 08/21/17 12/07/17 History Allergies Allergy/AdvReac Type Severity Reaction Status Date / Time adhesive tape Allergy Rash/Hives Verified 12/07/17 13:09 lamotrigine [From Lamictal] Allergy Rash/Hives Verified 12/07/17 10:42 Sulfa (Sulfonamide Allergy Rash/Hives Verified 12/07/17 13:10 Antibiotics)
[~2017-12-09 09:30] MED LIST: LACTATED RINGERS 1,000 ML IV SCH; LIDOCAINE 1% 20 ML VIAL (10MG/ML) FOR IV START INTRADERMA PRN
[2017-12-09 10:45] VITALS: TEMP 97.9
[2017-12-09] MEDS ORDERED: PROPOFOL 10 MG/ML 20 ML VIAL IV ONE (12:36)
--- NOTE | 2017-12-09 13:08 | P.PCN ---
Date of Procedure: 12/09/17 Description of Procedure: PREOPERATIVE DIAGNOSIS: Status post sleeve gastrectomy. Gastroesophageal reflux disease. POSTOPERATIVE DIAGNOSIS: Status post sleeve gastrectomy. Gastroesophageal reflux disease. Erosive esophagitis, chronic. Diaphragmatic hiatal hernia without obstruction. Chronic superficial gastritis. OPERATION: Esophagogastroduodenoscopy with cold forceps biopsies along the antrum. SURGEON: Jyothi Díaz MD ANESTHESIA: MAC. INDICATIONS: The patient is a 62-year-old female who presents with a history of sleeve gastrectomy with abdominal pain. She is over 1 year out from her bariatric procedure. Benefits and risks of the procedure were described. Informed consent was obtained. DESCRIPTION: The patient was brought into the endoscopy suite and laid in the left lateral decubitus position. An Olympus gastroscope was passed along the posterior oropharynx down to the distal esophagus where the squamocolumnar junction was at 38 centimeters from the incisors remarkable for chronic erosive esophagitis, LA grade A without ulceration. The stomach was entered where she had a 1-cm hiatal hernia with a diaphragmatic hiatus found at 39 cm. The sleeve reservoir moderately large allowing easy retroflexion of the scope to view the lower esophageal valve. Chronic gastritis albeit mild was found along the antrum with cold biopsies obtained. The first through third portion of the duodenum was examined and unremarkable. The scope again had easily retroflexed along the antrum. The stomach was desufflated. The patient tolerated the procedure well. FINDINGS: No acute ulceration found along her sleeve. No corkscrewing sleeve gastrectomy. Squamocolumnar junction at 38 cm from the incisors. Diaphragmatic hiatus at 39 cm. Moderate large gastric reservoir with prior history of sleeve gastrectomy allowing easy retroflexion of the gastroscope to view the lower esophageal valve. Hiatal hernia 1 cm, fixed. LA grade A erosive esophagitis. No active duodenitis. Chronic gastritis. RECOMMENDATIONS: Upper endoscopy as needed. Plan - Discharge Summary New Discharge Prescriptions: No Action Levothyroxine Sodium [Synthroid] 88 mcg PO DAILY Fluticasone Nasal [place] [Flonase Nasal [place]] 1 - 2 spray NASAL DAILY PRN PRN Reason: allergies Montelukast Sodium [Singulair] 10 mg PO HS PRN PRN Reason: Allergy Symptoms Multivitamins, Thera [Multivitamin (formulary)] 1 tab PO DAILY oxyCODONE ER [OxyCONTIN] 15 mg PO Q12HR PRN PRN Reason: Pain Lisinopril 30 mg PO DAILY Aspirin 81 mg PO DAILY chew amLODIPine [Norvasc] 5 mg PO DAILY Atorvastatin [Lipitor] 40 mg PO HS DULoxetine HCL [Cymbalta] 120 mg PO DAILY Discharge Medication List Levothyroxine Sodium [Synthroid] 88 mcg PO DAILY 12/03/13 [History] Fluticasone Nasal [place] [Flonase Nasal [place]] 1 - 2 spray NASAL DAILY PRN [History] Montelukast Sodium [Singulair] 10 mg PO HS PRN 12/18/15 [History] Multivitamins, Thera [Multivitamin (formulary)] 1 tab PO DAILY 04/24/16 [History ] oxyCODONE ER [OxyCONTIN] 15 mg PO Q12HR PRN 04/16/17 [History] Lisinopril 30 mg PO DAILY 06/09/17 [History] Aspirin 81 mg PO DAILY chew 06/10/17 [Rx] Atorvastatin [Lipitor] 40 mg PO HS 06/15/17 [History] amLODIPine [Norvasc] 5 mg PO DAILY 06/15/17 [History] DULoxetine HCL [Cymbalta] 120 mg PO DAILY 08/21/17 [History]
[2017-12-09 13:14] VITALS: RESP 18
[2017-12-09 13:29] VITALS: BP 148/78; PULSE 78
== END 2017-12-09 13:51 | disposition home or self-care (01) ==
LOC: ORWHC2ENDO 09:30
PROVIDERS: ATTEND Surgery Plastic and Reconstructive Surgery
DX: K31.9 Disease of stomach and duodenum, unspecified (principal); K29.30 Chronic superficial gastritis without bleeding; K22.10 Ulcer of esophagus without bleeding; K21.0 Gastro-esophageal reflux disease with esophagitis; K44.1 Diaphragmatic hernia with gangrene; Z98.84 Bariatric surgery status; Z90.3 Acquired absence of stomach [part of]; M79.7 Fibromyalgia; E78.5 Hyperlipidemia, unspecified; I10 Essential (primary) hypertension; M19.90 Unspecified osteoarthritis, unspecified site; M06.9 Rheumatoid arthritis, unspecified; L98.9 Disorder of the skin and subcutaneous tissue, unspecified; G47.30 Sleep apnea, unspecified; E07.9 Disorder of thyroid, unspecified; B18.2 Chronic viral hepatitis C; G62.9 Polyneuropathy, unspecified; K58.9 Irritable bowel syndrome, unspecified; I83.93 Asymptomatic varicose veins of bilateral lower extremities; L40.9 Psoriasis, unspecified; I73.00 Raynaud's syndrome without gangrene; H40.9 Unspecified glaucoma; G89.4 Chronic pain syndrome; G25.81 Restless legs syndrome; D69.6 Thrombocytopenia, unspecified; F50.2 Bulimia nervosa; E66.9 Obesity, unspecified; Z68.32 Body mass index [BMI] 32.0-32.9, adult; Z99.89 Dependence on other enabling machines and devices; Z79.82 Long term (current) use of aspirin; Z79.890 Hormone replacement therapy; Z79.899 Other long term (current) drug therapy; Z86.73 Personal history of transient ischemic attack (TIA), and cerebral infarction without residual deficits; Z86.718 Personal history of other venous thrombosis and embolism; Z87.440 Personal history of urinary (tract) infections; Z88.2 Allergy status to sulfonamides; Z88.8 Allergy status to other drugs, medicaments and biological substances; Z91.048 Other nonmedicinal substance allergy status; Z87.891 Personal history of nicotine dependence
CPT/HCPCS: 88305; 43239; J2704

== ENCOUNTER 2017-12-22 08:46 | Emergency (ER) | payer MEDICARE, OTHER ==
[2017-12-22 08:52] VITALS: TEMP 97
[2017-12-22] MEDS ORDERED: KETOROLAC 30 MG/ML 1 ML VIAL IVP STA (10:25)
[2017-12-22] MEDS ORDERED: ceFAZolin 1,000 MG in DEXTROSE/WATER 1 50ML.BAG IVPB STA (10:30)
[2017-12-22 11:37] LABS: Basophils % (A) 0 %; Eosinophils % (A) 0 %; HCT 38.5 % (34.0-46.0); Lymphocytes # (A) 1.7 k/uL (1.0-4.8); Lymphocytes % (A) 22 %; MCH 30.4 pg (25.0-35.0); MCHC 33.9 g/dL (31.0-37.0); MCV 89.6 fL (80.0-100.0); Monocytes # (A) 0.4 k/uL (0-1.0); Monocytes % (A) 5 %; Neutrophils # (A) 5.6 k/uL (1.3-7.7); Neutrophils % (A) 71 %; Platelet Count 203 k/uL (150-450); RBC 4.29 m/uL (3.80-5.40); RDW 12.9 % (11.5-15.5); WBC 7.9 k/uL (3.8-10.6)
[2017-12-22 11:46] LABS: ALT 34 U/L (9-52); AST 25 U/L (14-36); Alkaline Phosphatase 74 U/L (38-126); Anion Gap 12 mmol/L; Blood Urea Nitrogen 17 mg/dL (7-17); Calcium 9.2 mg/dL (8.4-10.2); Carbon Dioxide 30 mmol/L (22-30); Chloride 100 mmol/L (98-107); Glucose 82 mg/dL (74-99); Potassium 4.3 mmol/L (3.5-5.1); Sodium 142 mmol/L (137-145); Total Bilirubin 0.7 mg/dL (0.2-1.3); Total Protein 6.5 g/dL (6.3-8.2)
--- NOTE | 2017-12-22 12:13 | ED ---
Recheck HPI - General Chief Complaint: Recheck/Abnormal Lab/Rx Stated Complaint: post surgical infection Time Seen by Provider: 12/22/17 10:00 Source: patient, RN notes reviewed Mode of arrival: ambulatory Limitations: no limitations - History of Present Illness Initial Comments: This is a 63-year-old female who had a reduction mammoplasty done bilaterally of this month at [facility] in [place] who presents today with complaints of pain and erythema to both surgical sites which started yesterday. She complains of fever and sweats no nausea vomiting she is complaining of increased pain. She states she has used up her medication. She has any drainage or discharge. She reports no trauma or other complaints at this time. MD Complaint: wound re-check - Related Data Home Medications Medication Instructions Recorded Confirmed Levothyroxine Sodium [Synthroid] 88 mcg PO DAILY 12/03/13 12/22/17 Fluticasone Nasal [place] [Flonase 1 - 2 spray NASAL DAILY PRN 12/29/14 12/22/17 Nasal [place]] Montelukast Sodium [Singulair] 10 mg PO HS PRN 12/18/15 12/22/17 Multivitamins, Thera [Multivitamin 1 tab PO DAILY 04/24/16 12/22/17 (formulary)] oxyCODONE ER [OxyCONTIN] 15 mg PO Q12HR PRN 04/16/17 12/22/17 Lisinopril 30 mg PO DAILY 06/09/17 12/22/17 Atorvastatin [Lipitor] 40 mg PO HS 06/15/17 12/22/17 amLODIPine [Norvasc] 5 mg PO DAILY 06/15/17 12/22/17 DULoxetine HCL [Cymbalta] 120 mg PO DAILY 08/21/17 12/22/17 HYDROcodone/APAP 5-325MG [[place] 1 - 2 tab PO Q4HR PRN 12/22/17 12/22/17 5-325] Previous Rx's Medication Instructions Recorded Aspirin 81 mg PO DAILY chew 06/10/17 Omeprazole 40 mg PO DAILY #30 capsule. 12/09/17 Acetaminophen-Codeine 300-30mg 1 - 2 tab PO Q4-6H PRN #20 tablet 12/22/17 [Tylenol w/codeine #3] Clindamycin [Cleocin] 150 mg PO Q6H #20 capsule 12/22/17 Allergies Allergy/AdvReac Type Severity Reaction Status Date / Time adhesive tape Allergy Rash/Hives Verified 12/22/17 09:59 lamotrigine [From Lamictal] Allergy Rash/Hives Verified 12/22/17 09:59 Sulfa (Sulfonamide Allergy Rash/Hives Verified 12/22/17 09:59 Antibiotics) Review of Systems ROS Statement: Those systems with pertinent positive or pertinent negative responses have been documented in the HPI. ROS Other: All systems not noted in ROS Statement are negative. Past Medical History Past Medical History: CVA/TIA, Eye Disorder, Fibromyalgia, Hypertension, Liver Disease, Osteoarthritis (OA), Rheumatoid Arthritis (RA), Skin Disorder, Sleep Apnea/CPAP/BIPAP, Thyroid Disorder Additional Past Medical History / Comment(s): Hepatitis C - in remission, neuorpathy bilateral hands and feet,IBS, hx colitis, frequent headaches, varicose veins bilaterally, dermatitis,hx psoriasis, chronic UTI's, raymauds- hands and feet, glaucoma bilaterally, hypothyroid. bariatric sleeve 12-27-15 History of Any Multi-Drug Resistant Organisms: None Reported Past Surgical History: Appendectomy, Back Surgery, Bariatric Surgery, Orthopedic Surgery, Tonsillectomy Additional Past Surgical History / Comment(s): 12/27/15 laparoscopic sleeve gastrectomy with EGD. Other surgical hx: EGD/colonoscopy, nasal surgery, left hand-tendon surgery in thumb with carpal tunnel and trigger finger, RUTH KNEES AND ANKLES ARTHROSCOPY, ruth cataracts Sleeve Past Anesthesia/Blood Transfusion Reactions: Motion Sickness Past Psychological History: Anxiety, Depression Smoking Status: Former smoker Past Alcohol Use History: None Reported Past Drug Use History: None Reported - Past Family History Mother Family Medical History: Diabetes Mellitus, Renal Disease Additional Family Medical History / Comment(s): Mother is 80yrs old. Father Family Medical History: Cancer, COPD Additional Family Medical History / Comment(s): PROSTATE and SKIN cancer. at 82 of COPD. Brother(s) Family Medical History: Cancer Additional Family Medical History / Comment(s): PROSTATE, skin General Exam - General Exam Comments Initial Comments: This is a well-developed well-nourished awake alert anxious appearing female Limitations: no limitations General appearance: alert, anxious Head exam: Present: atraumatic, normocephalic, normal inspection Eye exam: Present: normal appearance, PERRL, EOMI. Absent: scleral icterus, conjunctival injection, periorbital swelling ENT exam: Present: normal exam, mucous membranes moist Neck exam: Present: normal inspection. Absent: tenderness, meningismus, lymphadenopathy Respiratory exam: Present: normal lung sounds bilaterally, other (Examination of the anterior chest wall reveals bilateral stop surgical changes on the breasts with localized erythema increased localized warmth no drainage or discharge the suture lines all appear to be intact.). Absent: respiratory distress, wheezes, rales, rhonchi, stridor Cardiovascular Exam: Present: regular rate, normal rhythm, normal heart sounds. Absent: systolic murmur, diastolic murmur, rubs, gallop, clicks GI/Abdominal exam: Present: soft, normal bowel sounds. Absent: distended, tenderness, guarding, rebound, rigid Extremities exam: Present: normal inspection, full ROM, normal capillary refill. Absent: tenderness, pedal edema, joint swelling, calf tenderness Back exam: Present: normal inspection Neurological exam: Present: alert, oriented X3, CN II-XII intact Psychiatric exam: Present: anxious Skin exam: Present: warm, dry Course Vital Signs 12/22/17 12/22/17 08:49 12:27 Temperature 97.0 F L 97.0 F L Pulse Rate 87 68 Respiratory 20 18 Rate Blood Pressure 121/74 148/77 O2 Sat by Pulse 96 99 Oximetry - Reevaluation(s) Reevaluation #1: 12/22/17 13:18 Patient still had 5/10 pain she was given further pain medication. Reevaluation #2: 12/22/17 13:18 I did discuss case with Dr. Fleming the patient's plastic surgeon at [facility] in [facility]. On marked transmission of images of the patient' s surgical sites were sent to . Patient will be discharged on a dose of clindamycin with follow-up in the office also she will be changed to Tylenol No. 3. The patient is in agreement with this. 12/22/17 13:19 The patient does have a history of psoriasis there is some question whether part of this may be psoriatic flare up. Medical Decision Making - Lab Data Result diagrams: 12/22/17 11:10 12/22/17 11:10 Lab Results 12/22/17 12/22/17 Range/Units 11:10 11:10 WBC 7.9 (3.8-10.6) k/uL RBC 4.29 (3.80-5.40) m/uL Hgb 13.0 (11.4-16.0) gm/dL Hct 38.5 (34.0-46.0) % MCV 89.6 (80.0-100.0) fL MCH 30.4 (25.0-35.0) pg MCHC 33.9 (31.0-37.0) g/dL RDW 12.9 (11.5-15.5) % Plt Count 203 (150-450) k/uL Neutrophils % 71 % Lymphocytes % 22 % Monocytes % 5 % Eosinophils % 0 % Basophils % 0 % Neutrophils # 5.6 (1.3-7.7) k/uL Lymphocytes # 1.7 (1.0-4.8) k/uL Monocytes # 0.4 (0-1.0) k/uL Eosinophils # 0.0 (0-0.7) k/uL Basophils # 0.0 (0-0.2) k/uL Sodium 142 (137-145) mmol/L Potassium 4.3 (3.5-5.1) mmol/L Chloride 100 (98-107) mmol/L Carbon Dioxide 30 (22-30) mmol/L Anion Gap 12 mmol/L BUN 17 (7-17) mg/dL Creatinine 0.52 (0.52-1.04) mg/dL Est GFR (CKD-EPI)AfAm >90 (>60 ml/min/1.73 sqM) Est GFR (CKD-EPI)NonAf >90 (>60 ml/min/1.73 sqM) Glucose 82 (74-99) mg/dL Calcium 9.2 (8.4-10.2) mg/dL Total Bilirubin 0.7 (0.2-1.3) mg/dL AST 25 (14-36) U/L ALT 34 (9-52) U/L Alkaline Phosphatase 74 (38-126) U/L Total Protein 6.5 (6.3-8.2) g/dL Albumin 4.0 (3.5-5.0) g/dL Disposition Clinical Impression: Postoperative pain, Postoperative cellulitis of surgical wound Disposition: HOME SELF-CARE Condition: Good Instructions: Cellulitis (ED) Additional Instructions: follow-up with your plastic surgeon for further care. Tylenol 3 for pain Prescriptions: Acetaminophen-Codeine 300-30mg [Tylenol w/codeine #3] 1 - 2 tab PO Q4-6H PRN # 20 tablet PRN Reason: Pain Clindamycin [Cleocin] 150 mg PO Q6H #20 capsule Is patient prescribed a controlled substance at d/c from ED?: Yes When asked, does pt state using other controlled substances?: Yes If prescribed controlled substance>3 days was MAPS reviewed?: No If Rx opioid, was Start Talking consent form obtained?: No Referrals: Aquilino Sow DO [Primary Care Provider] - 1-2 days
[2017-12-22 12:29] VITALS: BP 148/77; PULSE 68; RESP 18
[2017-12-22] MEDS ORDERED: fentaNYL (PF) 50 MCG/ML 2 ML AMP IV STA (13:00)
== END 2017-12-22 13:39 | disposition home or self-care (01) ==
LOC: EC 08:46
DX: L76.82 Other postprocedural complications of skin and subcutaneous tissue (principal); N61.0 Mastitis without abscess; I10 Essential (primary) hypertension; G62.9 Polyneuropathy, unspecified; E03.9 Hypothyroidism, unspecified; F41.9 Anxiety disorder, unspecified; F32.9 Major depressive disorder, single episode, unspecified; Z86.73 Personal history of transient ischemic attack (TIA), and cerebral infarction without residual deficits; Z88.2 Allergy status to sulfonamides; Z88.8 Allergy status to other drugs, medicaments and biological substances; Z91.048 Other nonmedicinal substance allergy status; Z79.899 Other long term (current) drug therapy; Z87.891 Personal history of nicotine dependence
CPT/HCPCS: 99283; 96365; 96375 ×2; 36415; 80053; 85025; 87040; J3010; J1885; J0690

== ENCOUNTER → 2018-01-06 | Outpatient (CLI) | payer MEDICARE, OTHER ==
[2018-01-06 14:54] VITALS: BP 111/71; PULSE 84; TEMP 98; BMI 32.3
--- NOTE | 2018-01-06 15:14 | P.PN ---
Subjective Progress Note Date: 01/06/18 HPI: She is s/p breast reduction surgery. She is happy with her procedure. She reports control of her reflux with her medications. ABDOMEN: She has panniculitis. PLAN: 1. Recommend continue medical therapy for her reflux. 2. Recommend ketogenic diet. 3. Follow up in 1 year. 4. Nystatin for treatment of panniculitis. Objective - Vital Signs Vital signs: Vital Signs Temp 98 F 01/06/18 14:49 Pulse 84 01/06/18 14:49 Resp BP 111/71 01/06/18 14:49 Pulse Ox Intake & Output 01/05/18 01/06/18 01/06/18 18:59 06:59 18:59 Weight 92.125 kg
== END | disposition home or self-care (01) ==
LOC: BARWHC3 13:34
PROVIDERS: ATTEND Surgery Plastic and Reconstructive Surgery
DX: Z09 Encounter for follow-up examination after completed treatment for conditions other than malignant neoplasm (principal); M79.3 Panniculitis, unspecified; K21.9 Gastro-esophageal reflux disease without esophagitis; Z98.890 Other specified postprocedural states
CPT/HCPCS: 99211

== ENCOUNTER 2018-05-29 15:23 | Emergency (ER) | payer MEDICARE, OTHER ==
[2018-05-29 15:29] VITALS: RESP 18
--- NOTE | 2018-05-29 16:26 | XR ---
Right leg HISTORY: Trauma and pain 2 views of the right leg on 3 images Soft tissue calcifications are present which are likely vascular. Bone mineralization, joint spaces a nd alignment are maintained. Soft tissue swelling is noted. Lucency in the pretibial soft tissues com patible with patient's history of laceration. IMPRESSION: No fracture or dislocation.
[2018-05-29] MEDS ORDERED: DIPH,PERTUS(ACELL)TETVAC-LF 0.5 ML VIAL IM ONE (16:31)
[2018-05-29] MEDS ORDERED: LIDOCAINE 1% INJ 10MG/ML (20 ML MDV) SQ ONE (16:34)
[2018-05-29] MEDS ORDERED: ceFAZolin 1,000 MG VIAL IM STA (16:40)
--- NOTE | 2018-05-29 17:24 | ED ---
General Adult HPI - General Chief complaint: Wound/Laceration Stated complaint: foot lac Time Seen by Provider: 05/29/18 15:59 Source: patient, EMS, RN notes reviewed Mode of arrival: EMS Limitations: no limitations - History of Present Illness Initial comments: 62-year-old female since to the emergency department for a chief complaint of right briones skin tear is 1 hour. Patient states she was walking into her house when she hit her leg on a plastic been containing files. Patient states she has had a skin tear on the area before and had a difficult time healing. She denies any pain with ambulation. She denies falling or hitting her head. She denies any other injuries. Patient has no other complaints at this time including shortness of breath, chest pain, abdominal pain, nausea or vomiting, headache, or visual changes. - Related Data Home Medications Medication Instructions Recorded Confirmed Levothyroxine Sodium [Synthroid] 88 mcg PO DAILY 12/03/13 01/07/18 Fluticasone Nasal [place] [Flonase 1 - 2 spray NASAL DAILY PRN 12/29/14 01/07/18 Nasal [place]] Montelukast Sodium [Singulair] 10 mg PO HS PRN 12/18/15 01/07/18 Multivitamins, Thera [Multivitamin 1 tab PO DAILY 04/24/16 01/07/18 (formulary)] oxyCODONE ER [OxyCONTIN] 15 mg PO Q12HR PRN 04/16/17 01/07/18 Lisinopril 30 mg PO DAILY 06/09/17 01/07/18 Atorvastatin [Lipitor] 40 mg PO HS 06/15/17 01/07/18 amLODIPine [Norvasc] 5 mg PO DAILY 06/15/17 01/07/18 DULoxetine HCL [Cymbalta] 120 mg PO DAILY 08/21/17 01/07/18 HYDROcodone/APAP 5-325MG [[place] 1 - 2 tab PO Q4HR PRN 12/22/17 01/07/18 5-325] Adalimumab [Humira Crohn's] 40 mg SQ WEEKLY 01/07/18 01/07/18 Previous Rx's Medication Instructions Recorded Aspirin 81 mg PO DAILY chew 06/10/17 Omeprazole 40 mg PO DAILY #30 capsule. 12/09/17 Acetaminophen-Codeine 300-30mg 1 - 2 tab PO Q4-6H PRN #20 tablet 12/22/17 [Tylenol w/codeine #3] Clindamycin [Cleocin] 150 mg PO Q6H #20 capsule 12/22/17 Cephalexin [Keflex] 500 mg PO Q6HR 3 Days #12 cap 05/29/18 Allergies Allergy/AdvReac Type Severity Reaction Status Date / Time adhesive tape Allergy Rash/Hives Verified 05/29/18 15:29 lamotrigine [From Lamictal] Allergy Rash/Hives Verified 05/29/18 15:29 Sulfa (Sulfonamide Allergy Rash/Hives Verified 05/29/18 15:29 Antibiotics) Review of Systems ROS Statement: Those systems with pertinent positive or pertinent negative responses have been documented in the HPI. ROS Other: All systems not noted in ROS Statement are negative. Past Medical History Past Medical History: CVA/TIA, Eye Disorder, Fibromyalgia, Hypertension, Liver Disease, Osteoarthritis (OA), Rheumatoid Arthritis (RA), Skin Disorder, Sleep Apnea/CPAP/BIPAP, Thyroid Disorder Additional Past Medical History / Comment(s): Hepatitis C - in remission, neuorpathy bilateral hands and feet,IBS, hx colitis, frequent headaches, varicose veins bilaterally, dermatitis,hx psoriasis, chronic UTI's, raymauds- hands and feet, glaucoma bilaterally, hypothyroid. bariatric sleeve 12-27-15 History of Any Multi-Drug Resistant Organisms: None Reported Past Surgical History: Appendectomy, Back Surgery, Bariatric Surgery, Orthopedic Surgery, Tonsillectomy Additional Past Surgical History / Comment(s): 12/27/15 laparoscopic sleeve gastrectomy with EGD. Other surgical hx: EGD/colonoscopy, nasal surgery, left hand-tendon surgery in thumb with carpal tunnel and trigger finger, RUTH KNEES AND ANKLES ARTHROSCOPY, ruth cataracts. Sleeve gastrectomy 12/27/15. [facility] Past Anesthesia/Blood Transfusion Reactions: Motion Sickness Past Psychological History: Anxiety, Depression Smoking Status: Former smoker Past Alcohol Use History: None Reported Past Drug Use History: None Reported - Past Family History Mother Family Medical History: Diabetes Mellitus, Renal Disease Additional Family Medical History / Comment(s): Mother is 80yrs old. Father Family Medical History: Cancer, COPD Additional Family Medical History / Comment(s): PROSTATE and SKIN cancer. at 82 of COPD. Brother(s) Family Medical History: Cancer Additional Family Medical History / Comment(s): PROSTATE, skin General Exam Limitations: no limitations General appearance: alert, in no apparent distress Head exam: Present: atraumatic, normocephalic, normal inspection Eye exam: Present: normal appearance, PERRL, EOMI. Absent: scleral icterus, conjunctival injection, periorbital swelling ENT exam: Present: normal exam, mucous membranes moist Neck exam: Present: normal inspection, full ROM. Absent: tenderness, meningismus, lymphadenopathy Respiratory exam: Present: normal lung sounds bilaterally. Absent: respiratory distress, wheezes, rales, rhonchi, stridor Cardiovascular Exam: Present: regular rate, normal rhythm, normal heart sounds. Absent: systolic murmur, diastolic murmur, rubs, gallop, clicks Extremities exam: Present: full ROM (All range of motion of the right knee and ankle.), tenderness (Noted to the anterior briones), normal capillary refill ( Capillary refill less than 2 seconds and DP pulse 2+ the right lower extremity) , other (Patient has a 12 cm laceration in the shape of a flap on the right tib- fib. No bone exposure. All deep tissue intact.) Neurological exam: Present: alert, oriented X3, CN II-XII intact Psychiatric exam: Present: normal affect, normal mood Course Vital Signs 05/29/18 15:25 Temperature 98 F Pulse Rate 75 Respiratory 18 Rate Blood Pressure 169/82 O2 Sat by Pulse 97 Oximetry Procedures - Laceration Laceration #1 Consent Obtained: verbal consent Indication: laceration Site: other (Right anterior lower leg) Size (cm): 12 Description: flap Depth: simple, single layer Anesthetic Used: lidocaine 1% Anesthesia Technique: local infiltration Amount (mls): 7 Pre-repair: wound explored, irrigated extensively (Irrigated extensively with saline pressure irrigation), deep structures intact Type of Sutures: other ([place]) Size of Sutures: 5-0 Number of Sutures: 15 Technique: simple, interrupted (14), horizontal mattress (1 ) Patient Tolerated Procedure: well, no complications Medical Decision Making - Medical Decision Making 62-year-old female presents to the emergency department for a chief complaint of laceration to the right tib-fib. Patient accidentally hit her leg against a plastic bin. On exam patient has full range motion in neurovascular intact in the right lower extremity. Patient has a 12 cm flap-like laceration which was irrigated extensively. It was sutured with 15 sutures and Steri-Strips were applied to the distal aspect of the flap as this area was too thin to suture. Discussed possible difficulty with healing of the wound as it is a flap-like laceration so blood flow is somewhat restricted. He will follow up with primary care for this. Patient was given tetanus here. She will be given 3 days of Keflex as it is a somewhat large laceration, no bone or deep structures exposed. She will follow up with primary care in 1-2 days. She will return if she has any worsening symptoms. Disposition Clinical Impression: Laceration Disposition: HOME SELF-CARE Condition: Good Instructions: Care For Your Stitches (ED), Laceration (ED) Additional Instructions: Please take antibiotic as directed. Please keep the area clean. Please monitor for signs of infection such as spreading or streaking redness and return if these occur. Otherwise follow-up with primary care in 1-2 days. Return in 7-10 days to have sutures removed. Prescriptions: Cephalexin [Keflex] 500 mg PO Q6HR 3 Days #12 cap Is patient prescribed a controlled substance at d/c from ED?: No Referrals: Aquilino Sow DO [Primary Care Provider] - 1-2 days Time of Disposition: 17:23
[2018-05-29 17:47] VITALS: BP 154/84; PULSE 84; TEMP 97.6
== END 2018-05-29 17:45 | disposition home or self-care (01) ==
LOC: EC 15:23
DX: S81.811A Laceration without foreign body, right lower leg, initial encounter (principal); Z23 Encounter for immunization; I10 Essential (primary) hypertension; G47.30 Sleep apnea, unspecified; M79.7 Fibromyalgia; M19.90 Unspecified osteoarthritis, unspecified site; E03.9 Hypothyroidism, unspecified; M06.9 Rheumatoid arthritis, unspecified; G62.9 Polyneuropathy, unspecified; F41.9 Anxiety disorder, unspecified; F32.9 Major depressive disorder, single episode, unspecified; Z79.51 Long term (current) use of inhaled steroids; Z79.899 Other long term (current) drug therapy; Z91.048 Other nonmedicinal substance allergy status; Z88.2 Allergy status to sulfonamides; Z88.8 Allergy status to other drugs, medicaments and biological substances; Z87.891 Personal history of nicotine dependence; Z86.73 Personal history of transient ischemic attack (TIA), and cerebral infarction without residual deficits; Z98.84 Bariatric surgery status; W22.8XXA Striking against or struck by other objects, initial encounter; Y93.01 Activity, walking, marching and hiking; Y92.009 Unspecified place in unspecified non-institutional (private) residence as the place of occurrence of the external cause
CPT/HCPCS: 12004; 90471; 90715; 99283

== ENCOUNTER 2018-06-10 19:37 | Inpatient (IN) | payer MEDICARE, OTHER ==
[2018-06-10] MEDS ORDERED: VANCOMYCIN IV PER PHARMACY 1 EACH MISC MISCELLANE PRN (20:18)
[2018-06-10] MEDS ORDERED: VANCOMYCIN 2,000 MG in SODIUM CHLORIDE 0.9% 500 ML 500 ML IVPB STA (20:22)
--- NOTE | 2018-06-10 20:26 | ED ---
General Adult HPI - General Chief complaint: Recheck/Abnormal Lab/Rx Stated complaint: L briones Swelling Time Seen by Provider: 06/10/18 20:11 Source: patient, RN notes reviewed, old records reviewed Mode of arrival: ambulatory Limitations: no limitations - History of Present Illness Initial comments: 62-year-old female presenting for evaluation of right lower extremity wound infection. Patient had laceration repair 12 days prior. She had sutures removed on Thursday of this week. At that time patient was started on doxycycline. She has had 3 days of oral antibiotics, despite this she has had worsening erythema and pain at the site. She does report subjective fever and chills. No other complaints. - Related Data Home Medications Medication Instructions Recorded Confirmed Levothyroxine Sodium [Synthroid] 88 mcg PO DAILY 12/03/13 06/10/18 Fluticasone Nasal [place] [Flonase 1 - 2 spray NASAL DAILY PRN 12/29/14 06/10/18 Nasal [place]] Montelukast Sodium [Singulair] 10 mg PO HS PRN 12/18/15 06/10/18 Multivitamins, Thera [Multivitamin 1 tab PO DAILY 04/24/16 06/10/18 (formulary)] oxyCODONE ER [OxyCONTIN] 15 mg PO Q12HR PRN 04/16/17 06/10/18 Lisinopril 30 mg PO DAILY 06/09/17 06/10/18 DULoxetine HCL [Cymbalta] 120 mg PO DAILY 08/21/17 06/10/18 Doxycycline Monohydrate [Monodox] 100 mg PO BID 06/10/18 06/10/18 Hydrochlorothiazide 12.5 mg PO DAILY 06/10/18 06/10/18 amLODIPine [Norvasc] 10 mg PO DAILY 06/10/18 06/10/18 Previous Rx's Medication Instructions Recorded Aspirin 81 mg PO DAILY chew 06/10/17 Allergies Allergy/AdvReac Type Severity Reaction Status Date / Time adhesive tape Allergy Rash/Hives Verified 06/10/18 20:14 lamotrigine [From Lamictal] Allergy Rash/Hives Verified 06/10/18 20:14 Sulfa (Sulfonamide Allergy Rash/Hives Verified 06/10/18 20:14 Antibiotics) Review of Systems ROS Statement: Those systems with pertinent positive or pertinent negative responses have been documented in the HPI. ROS Other: All systems not noted in ROS Statement are negative. Past Medical History Past Medical History: CVA/TIA, Eye Disorder, Fibromyalgia, Hypertension, Liver Disease, Osteoarthritis (OA), Rheumatoid Arthritis (RA), Skin Disorder, Sleep Apnea/CPAP/BIPAP, Thyroid Disorder Additional Past Medical History / Comment(s): Hepatitis C - in remission, neuorpathy bilateral hands and feet,IBS, hx colitis, frequent headaches, varicose veins bilaterally, dermatitis,hx psoriasis, chronic UTI's, raymauds- hands and feet, glaucoma bilaterally, hypothyroid. bariatric sleeve 12-27-15 History of Any Multi-Drug Resistant Organisms: None Reported Past Surgical History: Appendectomy, Back Surgery, Bariatric Surgery, Orthopedic Surgery, Tonsillectomy Additional Past Surgical History / Comment(s): 12/27/15 laparoscopic sleeve gastrectomy with EGD. Other surgical hx: EGD/colonoscopy, nasal surgery, left hand-tendon surgery in thumb with carpal tunnel and trigger finger, RUTH KNEES AND ANKLES ARTHROSCOPY, ruth cataracts. Sleeve gastrectomy 12/27/15. Breast reduction 12/11/17 at [facility] Past Anesthesia/Blood Transfusion Reactions: Motion Sickness Past Psychological History: Anxiety, Depression Smoking Status: Former smoker Past Alcohol Use History: None Reported Past Drug Use History: None Reported - Past Family History Mother Family Medical History: Diabetes Mellitus, Renal Disease Additional Family Medical History / Comment(s): Mother is 80yrs old. Father Family Medical History: Cancer, COPD Additional Family Medical History / Comment(s): PROSTATE and SKIN cancer. at 82 of COPD. Brother(s) Family Medical History: Cancer Additional Family Medical History / Comment(s): PROSTATE, skin General Exam Limitations: no limitations General appearance: alert, in no apparent distress Head exam: Present: atraumatic, normocephalic Eye exam: Present: normal appearance, PERRL, EOMI ENT exam: Present: normal exam Neck exam: Present: normal inspection. Absent: tenderness, meningismus Respiratory exam: Present: normal lung sounds bilaterally. Absent: respiratory distress, wheezes Cardiovascular Exam: Present: regular rate, normal rhythm GI/Abdominal exam: Present: soft. Absent: distended, tenderness, guarding Extremities exam: Present: other (V-shaped laceration on the anterior surface of the left briones. Surrounding erythema and induration. No fluctuance.) Course Vital Signs 06/10/18 19:47 Temperature 97.8 F Pulse Rate 79 Respiratory 18 Rate Blood Pressure 143/94 O2 Sat by Pulse 97 Oximetry Medical Decision Making - Medical Decision Making 62-year-old female presenting for evaluation of wound infection and cellulitis, failed outpatient treatment. Patient will be admitted for IV antibiotics. Blood culture is obtained and is pending. Patient landed on vancomycin and ceftriaxone in the emergency department. Will be admitted for further treatment and evaluation. Laboratory studies are pending at the time of this dictation. Dr. Lopez will follow-up on laboratory studies. Disposition Clinical Impression: Cellulitis, leg, Failure of outpatient treatment Disposition: ADMITTED IP TO THIS [facility] Condition: Stable Is patient prescribed a controlled substance at d/c from ED?: No Referrals: Aquilino Sow DO [Primary Care Provider] - 1-2 days Decision to Admit Reason: Admit from EC Decision Date: 06/10/18 Decision Time: 20:30
[2018-06-10] MEDS ORDERED: NALOXONE 0.4 MG/ML 1 ML VIAL IV PRN (20:32)
[2018-06-10] MEDS ORDERED: oxyCODONE ER 15 MG TAB.ER.12H PO PRN (20:33)
[2018-06-10] MEDS: SODIUM CHLORIDE 0.9% 1,000 ML IV SCH (20:41)
[2018-06-10 20:58] LABS: Basophils % (A) 0 %; Eosinophils # (A) 0.1 k/uL (0-0.7); Eosinophils % (A) 2 %; HCT 36.5 % (34.0-46.0); HGB 12.3 gm/dL (11.4-16.0); Lymphocytes # (A) 3.2 k/uL (1.0-4.8); Lymphocytes % (A) 54 %; MCHC 33.7 g/dL (31.0-37.0); MCV 89.1 fL (80.0-100.0); Mean Platelet Volume 7.4; Monocytes # (A) 0.2 k/uL (0-1.0); Monocytes % (A) 4 %; Neutrophils # (A) 2.3 k/uL (1.3-7.7); Neutrophils % (A) 38 %; Platelet Count 157 k/uL (150-450); RDW 13.5 % (11.5-15.5)
[2018-06-10 21:07] LABS: ALT 30 U/L (9-52); AST 27 U/L (14-36); Albumin 4.3 g/dL (3.5-5.0); Alkaline Phosphatase 52 U/L (38-126); Anion Gap 7 mmol/L; Blood Urea Nitrogen 31 mg/dL (7-17); Calcium 9.3 mg/dL (8.4-10.2); Carbon Dioxide 28 mmol/L (22-30); Chloride 107 mmol/L (98-107); Glucose 80 mg/dL (74-99); Potassium 3.8 mmol/L (3.5-5.1); Sodium 142 mmol/L (137-145); Total Bilirubin 0.4 mg/dL (0.2-1.3); Total Protein 6.9 g/dL (6.3-8.2)
[2018-06-10 22:58] VITALS: BMI 34.8
[2018-06-10] MEDS: ACETAMINOPHEN TAB 325 MG TAB PO PRN (23:58)
[2018-06-11] MEDS: LEVOTHYROXINE 88 MCG TAB PO SCH (05:47)
[2018-06-11] MEDS: ASPIRIN 81 MG PO SCH (08:09)
[2018-06-11] MEDS: LISINOPRIL 10 MG TAB PO SCH (08:09)
[2018-06-11] MEDS: amLODIPine 10 MG TAB PO SCH (08:09)
[2018-06-11] MEDS: VANCOMYCIN 1,750 MG in SODIUM CHLORIDE 0.9% 500 ML 500 ML IVPB SCH ×2 (09:39→21:21)
[2018-06-11] MEDS: HYDROCHLOROTHIAZIDE 12.5 MG CAP PO SCH (09:39)
[2018-06-11] MEDS: SODIUM CHLORIDE 0.9% 1,000 ML IV SCH (10:41)
[2018-06-11] MEDS: MULTIVITAMINS, THERA 1 EACH TAB PO SCH (16:30)
[2018-06-11] MEDS: DULoxetine HCL 60 MG CAPSULE.DR PO SCH (16:30)
[2018-06-11] MEDS: CALCIUM CARBONATE 500 MG CHEWABLE PO SCH ×2 (16:30→21:21)
[2018-06-11] MEDS ORDERED: LORazepam 0.5 MG TAB PO PRN (19:21)
[2018-06-11] MEDS ORDERED: LACTULOSE 20 GM/30 ML CUP PO PRN (19:21)
[2018-06-11] MEDS ORDERED: MAGNESIUM HYDROXIDE 2,400 MG/10 ML CUP PO PRN (19:21)
[2018-06-11] MEDS ORDERED: ONDANSETRON 4 MG/2 ML VIAL IVP PRN (19:21)
[2018-06-11] MEDS ORDERED: MELATONIN 3 MG TABLET PO PRN (19:21)
--- NOTE | 2018-06-11 20:08 | US ---
EXAMINATION TYPE: US venous doppler duplex LE RT DATE OF EXAM: 06/11/2018 7:59 PM COMPARISON: US 07/25/2015 CLINICAL HISTORY: r/o dvt. SIDE PERFORMED: Right TECHNIQUE: The lower extremity deep venous system is examined utilizing real time linear array sonog yovani with graded compression, doppler sonography and color-flow sonography. VESSELS IMAGED: External Iliac Vein (EIV) Common Femoral Vein Deep Femoral Vein Greater Saphenous Vein * Femoral Vein Popliteal Vein Small Saphenous Vein * Proximal Calf Veins (* superficial vessels) Right Leg: Negative for DVT IMPRESSION: No evidence of deep venous thrombosis in the right leg.
--- NOTE | 2018-06-11 20:25 | HP ---
HISTORY AND PHYSICAL DATE OF ADMISSION: 06/10/18. DATE OF SERVICE: 06/11/18 PRESENTING COMPLAINT: Right lower extremity wound. HISTORY OF PRESENTING COMPLAINT: This is a very pleasant 62-year-old patient of Dr. Aquilino Sow. Chronic stable medical conditions include fibromyalgia, hypertension, osteoarthritis, irritable bowel syndrome, peripheral neuropathy, anxiety, depression. About 2 weeks ago she hit the top corner of a plastic box and skin got ripped off. She presented to the ER. In the ER stitches were done and sent home on antibiotics. Then 4 or 5 days ago she came back to see her physician's office to take stitches off and she was told to put Epsom salt and she had some old Silvadene left over and went on another set of antibiotics. It became more red and swollen. Decided to come to the ER. In the ER, was found to be somewhat infected appearing, started on IV ceftriaxone and vancomycin. When I saw this patient this morning, the swelling and redness started to come down. The patient did feel some burning in the area, but systematically there was no fever or chills. Tolerating a diet. No nausea, vomiting. REVIEW OF SYSTEMS: CONSTITUTIONAL: None. HEENT: None. RESPIRATORY: None. CARDIOVASCULAR: None. GASTROINTESTINAL: None. GENITOURINARY: None. MUSCULOSKELETAL: None. DERMATOLOGIC: As above. LYMPHATICS: None. PSYCHIATRY: None. NEUROLOGICAL: Numbness and tingling in the hand and feet. The patient also gets Raynaud's. MUSCULOSKELETAL: Arthritic pain in many joints. PAST MEDICAL HISTORY: Fibromyalgia, hypertension, osteoarthritis, obstructive sleep apnea, currently not using the CPAP, peripheral neuropathy, irritable bowel syndrome, Raynaud, anxiety, depression. PAST SURGICAL HISTORY: Appendectomy, back surgery, bariatric surgery, tonsillectomy, sleeve gastrectomy, heel surgery, left hand tendon surgery and carpal tunnel and trigger finger bilaterally and ankle arthroscopy, bilateral cataracts, sleeve gastrectomy in 2016, breast reduction at [facility] in [place]. PSYCH HISTORY: Anxiety, depression, claustrophobia. SOCIAL HISTORY: Lives alone. Smoked for 14 years, stopped 28 years ago. Alcohol and IV drug abuse back in 1985. FAMILY HISTORY: Prostate and skin cancer. HOME MEDICATIONS: Bariatric multivitamin with iron 1 tablet p.o. daily, Calcium 500 mg p.o. t.i.d., Flonase 1-2 sprays nasal daily p.r.n., hydrochlorothiazide 12.5 p.o. daily, Monodox 100 mg p.o. b.i.d., OxyContin 50 mg p.o. q.12 p.r.n., Norvasc 10 mg p.o. daily, Singulair 10 mg q.h.s. p.r.n., lisinopril 30 mg p.o. daily, Synthroid 88 mcg p.o. daily, Cymbalta 120 mg p.o. daily, aspirin 81 mg p.o. daily. ALLERGIES: To ADHESIVE, LAMICTAL, SULFUR. PHYSICAL EXAMINATION: Vital signs on presentation: Temperature 97.8, pulse 99, respiratory 18, blood pressure 143/94, pulse ox 97% on room air. GENERAL APPEARANCE: Well built, BMI 34.8, sitting up, comfortable. EYES: Pupils equal. Conjunctivae normal. HEENT: External appearance of nose and ears normal. Oral cavity normal. NECK: JVD not raised. Mass not palpable. RESPIRATORY: Effort, lungs are clear. CARDIOVASCULAR: 1st and 2nd sounds normal, minimal edema. ABDOMEN: Soft, nontender. Liver and spleen not palpable. LYMPHATIC: No lymph nodes palpable in neck or axillae. PSYCHIATRY: Alert and oriented x3. Mood and affect normal. MUSCULOSKELETAL: Evidence of osteoarthritis especially in the hands and knees. DERMATOLOGICAL: The patient has got a wound on the right lower extremity briones with area of surrounding redness, tenderness. INVESTIGATION: White count 16, hemoglobin 12.3, potassium 3.8. ASSESSMENT: 1. Right lower extremity traumatic wound, which has failed outpatient antibiotic treatment. Will require IV antibiotics and already started responding overnight with some clinical improvement. 2. Chronic fibromyalgia. 3. Obesity; BMI 34.8. 4. Essential hypertension. 5. Primary osteoarthritis. 6. Obstructive sleep apnea, does not use CPAP machine. 7. Peripheral neuropathy idiopathic. 8. Irritable bowel syndrome. 9. Raynaud disease. 10.Anxiety and depression, not otherwise specified. PLAN: Patient is on IV vancomycin and ceftriaxone. Home medications are resumed. Will also use Silvadene with Kerlix and Robin wrap to cut back on the swelling. We will use a Doppler ultrasound to make sure there is no DVT. Care was discussed with the patient and questions were answered. MMODL / IJN: [id number] /
[2018-06-11] MEDS ORDERED: CALCIUM CARBONATE 500 MG CHEWABLE PO SCH (21:00)
[2018-06-11] MEDS: ENOXAPARIN 40 MG/0.4 ML SYRINGE SQ SCH (21:22)
[2018-06-12] MEDS: PREGABALIN 75 MG CAP PO PRN (00:51)
[2018-06-12] MEDS: LEVOTHYROXINE 88 MCG TAB PO SCH (05:51)
[2018-06-12] MEDS: DULoxetine HCL 60 MG CAPSULE.DR PO SCH (08:11)
[2018-06-12] MEDS: CALCIUM CARBONATE 500 MG CHEWABLE PO SCH ×3 (08:11→20:59)
[2018-06-12] MEDS: amLODIPine 10 MG TAB PO SCH (08:11)
[2018-06-12] MEDS: ENOXAPARIN 40 MG/0.4 ML SYRINGE SQ SCH (08:11)
[2018-06-12] MEDS: LISINOPRIL 10 MG TAB PO SCH (08:11)
[2018-06-12] MEDS: MULTIVITAMINS, THERA 1 EACH TAB PO SCH (08:12)
[2018-06-12] MEDS: ASPIRIN 81 MG PO SCH (08:12)
[2018-06-12] MEDS: HYDROCHLOROTHIAZIDE 12.5 MG CAP PO SCH (08:12)
[2018-06-12] MEDS: ACETAMINOPHEN TAB 325 MG TAB PO PRN (08:24)
[2018-06-12] MEDS: VANCOMYCIN 1,750 MG in SODIUM CHLORIDE 0.9% 500 ML 500 ML IVPB SCH ×2 (09:49→20:59)
[2018-06-12 10:45] LABS: Anion Gap 10 mmol/L; Blood Urea Nitrogen 15 mg/dL (7-17); Calcium 9.6 mg/dL (8.4-10.2); Carbon Dioxide 24 mmol/L (22-30); Chloride 108 mmol/L (98-107); Glucose 104 mg/dL (74-99); Potassium 4.3 mmol/L (3.5-5.1); Sodium 142 mmol/L (137-145)
[2018-06-12] MEDS ORDERED: VANCOMYCIN TROUGH DUE 1 EACH MISC MISCELLANE ONE (20:00)
--- NOTE | 2018-06-12 22:31 | PN ---
PROGRESS NOTE DATE OF SERVICE: June 12, 2018. PRESENTING COMPLAINT: Right lower extremity wound. INTERVAL HISTORY: This patient presented with right lower extremity wound from local trauma that failed outpatient treatment. On IV vancomycin. Redness, swelling, tenderness is going down. Overall feeling better. REVIEW OF SYSTEMS: Done for constitutional, cardiovascular, GI, pulmonary; relevant findings as above. CURRENT MEDICATIONS: Reviewed that include IV ceftriaxone and vancomycin. PHYSICAL EXAMINATION: VITAL SIGNS: Temperature 96.4, pulse 69, respirations 20, blood pressure 140/64, pulse ox 95% on room air. GENERAL APPEARANCE: Sitting up comfortable. EYES: Pupils equal. Conjunctivae normal. HEENT external appearance of nose and ears normal. Oral cavity normal. NECK: JVD not raised. Mass not palpable. RESPIRATORY: Effort normal. Lungs are clear. CARDIOVASCULAR: 1st and 2nd sounds normal. No edema. ABDOMEN: Soft, nontender. Liver and spleen not palpable. DERMATOLOGICAL: Wound to the right lower extremity decreased tenderness, less redness. Skin marking is present. INVESTIGATIONS: Potassium 4.3. Vanco trough level noted. ASSESSMENT: 1. Acute right lower extremity traumatic wound having failed outpatient treatment, started to respond. 2. Chronic fibromyalgia. 3. Obesity; BMI 34.2. 4. Essential hypertension. 5. Primary osteoarthritis. 6. Obstructive sleep apnea does not use CPAP machine. 7. Peripheral neuropathy idiopathic. 8. Irritable bowel syndrome. 9. Raynaud disease. 10.Anxiety and depression, not otherwise specified. PLAN: Continue with IV antibiotics. The patient started to respond. Care was discussed with the patient. Continue also local Silvadene cream. The patient's Doppler was negative for DVT. MMODL / IJN: [id number] /
[2018-06-13] MEDS: PREGABALIN 75 MG CAP PO PRN ×2 (01:23→21:43)
[2018-06-13] MEDS: LEVOTHYROXINE 88 MCG TAB PO SCH (06:02)
[2018-06-13] MEDS: amLODIPine 10 MG TAB PO SCH (08:31)
[2018-06-13] MEDS: DULoxetine HCL 60 MG CAPSULE.DR PO SCH (08:31)
[2018-06-13] MEDS: ASPIRIN 81 MG PO SCH (08:31)
[2018-06-13] MEDS: CALCIUM CARBONATE 500 MG CHEWABLE PO SCH ×3 (08:31→21:27)
[2018-06-13] MEDS: ENOXAPARIN 40 MG/0.4 ML SYRINGE SQ SCH (08:31)
[2018-06-13] MEDS: HYDROCHLOROTHIAZIDE 12.5 MG CAP PO SCH (08:31)
[2018-06-13] MEDS: LISINOPRIL 10 MG TAB PO SCH (08:31)
[2018-06-13] MEDS: VANCOMYCIN 1,750 MG in SODIUM CHLORIDE 0.9% 500 ML 500 ML IVPB SCH ×2 (09:07→20:13)
[2018-06-13] MEDS: MULTIVITAMINS, THERA 1 EACH TAB PO SCH (11:52)
--- NOTE | 2018-06-13 22:41 | PN ---
PROGRESS NOTE DATE OF SERVICE: 06/13/2018. PRESENTING COMPLAINT: Right lower extremity wound. INTERVAL HISTORY: The patient presented with right lower extremity wound from local trauma that failed outpatient treatment on IV vancomycin, slowly improving. The swelling is going down. No fever. No chills. Tolerating a diet. Also getting topical Silvadene treatment. REVIEW OF SYSTEMS: Done for constitutional, cardiovascular, GI, pulmonary; relevant findings as above. CURRENT MEDICATIONS: Reviewed, that include IV vancomycin and ceftriaxone. EXAMINATION: Afebrile, pulse 75, respirations 16, blood pressure 129/85, pulse 94 percent on room air. GENERAL: Sitting up, comfortable. EYES: Conjunctivae normal. Pupils are normal. HEENT: External appearance of nose and ears normal. Oral cavity normal. NECK: JVD not raised. Mass not palpable. Respiratory effort normal. LUNGS: Clear. CARDIOVASCULAR: 1st and 2nd sounds normal. No edema. ABDOMEN: Soft, nontender. Liver and spleen not palpable. DERMATOLOGICAL: Wound to the right briones continues to improve. Decreased redness and tenderness. INVESTIGATIONS: No blood work from today. Blood cultures are negative. ASSESSMENT: 1. Acute right lower extremity traumatic wound, failed outpatient treatment, starting to respond. 2. Chronic fibromyalgia. 3. Obesity; BMI 34.2. 4. Essential hypertension. 5. Primary osteoarthritis. 6. Obstructive sleep apnea, does not use CPAP machine. 7. Peripheral neuropathy, idiopathic. 8. Irritable bowel syndrome. 9. Raynaud disease. 10.Anxiety and depression, not otherwise specified. Continue with IV antibiotics. Care was discussed the patient, another 1 or 2 days in the hospital probably required. MMODL / IJN: [id number] /
[2018-06-14] MEDS: LEVOTHYROXINE 88 MCG TAB PO SCH (06:31)
[2018-06-14] MEDS: VANCOMYCIN 1,750 MG in SODIUM CHLORIDE 0.9% 500 ML 500 ML IVPB SCH ×2 (07:50→20:55)
[2018-06-14] MEDS: DULoxetine HCL 60 MG CAPSULE.DR PO SCH (07:51)
[2018-06-14] MEDS: CALCIUM CARBONATE 500 MG CHEWABLE PO SCH ×3 (07:51→20:55)
[2018-06-14] MEDS: ENOXAPARIN 40 MG/0.4 ML SYRINGE SQ SCH (07:51)
[2018-06-14] MEDS: amLODIPine 10 MG TAB PO SCH (07:51)
[2018-06-14] MEDS: ASPIRIN 81 MG PO SCH (07:51)
[2018-06-14] MEDS: HYDROCHLOROTHIAZIDE 12.5 MG CAP PO SCH (07:52)
[2018-06-14] MEDS: LISINOPRIL 10 MG TAB PO SCH (07:52)
[2018-06-14 09:05] LABS: Basophils % (A) 0 %; Eosinophils # (A) 0.1 k/uL (0-0.7); Eosinophils % (A) 2 %; HCT 40.8 % (34.0-46.0); HGB 13.2 gm/dL (11.4-16.0); Lymphocytes # (A) 2.2 k/uL (1.0-4.8); Lymphocytes % (A) 43 %; MCH 29.5 pg (25.0-35.0); MCHC 32.4 g/dL (31.0-37.0); MCV 91.2 fL (80.0-100.0); Mean Platelet Volume 7.2; Monocytes # (A) 0.2 k/uL (0-1.0); Monocytes % (A) 3 %; Neutrophils # (A) 2.6 k/uL (1.3-7.7); Neutrophils % (A) 50 %; Platelet Count 179 k/uL (150-450); RBC 4.47 m/uL (3.80-5.40); RDW 13.4 % (11.5-15.5); WBC 5.2 k/uL (3.8-10.6)
[2018-06-14 09:50] LABS: Anion Gap 13 mmol/L; Blood Urea Nitrogen 19 mg/dL (7-17); Calcium 9.4 mg/dL (8.4-10.2); Carbon Dioxide 23 mmol/L (22-30); Chloride 106 mmol/L (98-107); Glucose 125 mg/dL (74-99); Potassium 3.8 mmol/L (3.5-5.1); Sodium 142 mmol/L (137-145)
[2018-06-14] MEDS: MULTIVITAMINS, THERA 1 EACH TAB PO SCH (12:32)
--- NOTE | 2018-06-14 17:56 | PN ---
PROGRESS NOTE DATE OF SERVICE: 06/14/2018 PRESENTING COMPLAINT: Right lower extremity wound. INTERVAL HISTORY: This patient presented with right lower extremity wound from local trauma that failed outpatient treatment. Remains on IV antibiotics. Pain continues to improve. Swelling continues to go down. Local treatment is continuing. No fever. No chills. Pain is improved. REVIEW OF SYSTEMS: Done for constitutional, cardiovascular, GI, pulmonary, dermatological; relevant findings as above. CURRENT MEDICATIONS: Reviewed. They include IV ceftriaxone and IV vancomycin. PHYSICAL EXAMINATION: Temperature 96.9, pulse 65, respiration 18, blood pressure 151/75, pulse ox 94% on room air. GENERAL APPEARANCE: Sitting up, comfortable. EYES: Pupils equal. Conjunctivae normal. HEENT: External appearance of nose and ears normal. Oral cavity normal. NECK: JVD not raised. Mass not palpable. RESPIRATORY: Effort normal. Lungs are clear. CARDIOVASCULAR: First and second sounds normal. No edema. ABDOMEN: Soft, non-tender. Liver and spleen not palpable. DERMATOLOGICAL: Wound on the right briones continues to improve. Decreased redness and tenderness. Decreased secretions. INVESTIGATIONS: White count 5.2, hemoglobin 13.2. ASSESSMENT: 1. Acute right lower extremity traumatic wound; failed outpatient treatment; responding. 2. Chronic fibromyalgia. 3. Obesity; body mass index 34.2. 4. Essential hypertension. 5. Primary osteoarthritis. 6. Obstructive sleep apnea. Does not use CPAP machine. 7. Peripheral neuropathy, idiopathic. 8. Irritable bowel syndrome. 9. Raynaud disease. 10.Anxiety and depression not otherwise specified. PLAN: Continue with IV antibiotics and local care. Continues to improve. Probably another day or two more in the hospital. Discussed with the patient. MMODL / IJN: [id number] /
[2018-06-14] MEDS: PREGABALIN 75 MG CAP PO PRN (20:55)
[2018-06-15] MEDS: LEVOTHYROXINE 88 MCG TAB PO SCH (06:14)
[2018-06-15] MEDS: ENOXAPARIN 40 MG/0.4 ML SYRINGE SQ SCH (07:51)
[2018-06-15] MEDS: amLODIPine 10 MG TAB PO SCH (07:51)
[2018-06-15] MEDS: CALCIUM CARBONATE 500 MG CHEWABLE PO SCH ×3 (07:51→21:30)
[2018-06-15] MEDS: MULTIVITAMINS, THERA 1 EACH TAB PO SCH (07:51)
[2018-06-15] MEDS: ASPIRIN 81 MG PO SCH (07:52)
[2018-06-15] MEDS: LISINOPRIL 10 MG TAB PO SCH (07:52)
[2018-06-15] MEDS: VANCOMYCIN 1,750 MG in SODIUM CHLORIDE 0.9% 500 ML 500 ML IVPB SCH ×2 (07:52→21:30)
[2018-06-15] MEDS: HYDROCHLOROTHIAZIDE 12.5 MG CAP PO SCH (07:52)
[2018-06-15] MEDS: DULoxetine HCL 60 MG CAPSULE.DR PO SCH (07:52)
[2018-06-15 11:06] LABS: Anion Gap 8 mmol/L; Blood Urea Nitrogen 20 mg/dL (7-17); Calcium 9.1 mg/dL (8.4-10.2); Carbon Dioxide 27 mmol/L (22-30); Chloride 106 mmol/L (98-107); Glucose 82 mg/dL (74-99); Potassium 4.2 mmol/L (3.5-5.1); Sodium 141 mmol/L (137-145)
--- NOTE | 2018-06-15 22:22 | PN ---
PROGRESS NOTE DATE OF SERVICE: 06/15/2018 PRESENTING COMPLAINT: Right lower extremity wound. INTERVAL HISTORY: This patient presented with right lower extremity wound following local trauma, failed outpatient treatment. Remains on IV antibiotics. Continues to improve slowly. Swelling and redness continue to go down. No fever. No chills. Tolerating a diet. REVIEW OF SYSTEMS: Done for constitutional, cardiovascular, GI, pulmonary and dermatological; relevant findings as above. CURRENT MEDICATIONS: Reviewed. They include IV ceftriaxone, IV vancomycin and topical Silvadene. PHYSICAL EXAMINATION: Afebrile. Pulse 56, respiration 16, blood pressure 120/80, pulse ox 92% on room air. GENERAL APPEARANCE: Sitting up, comfortable. EYES: Pupils equal. Conjunctivae normal. HEENT: External appearance of nose and ears normal. Oral cavity normal. NECK: JVD not raised. Mass not palpable. RESPIRATORY: Effort normal. Lungs are clear. CARDIOVASCULAR: First and second sounds normal. No edema. ABDOMEN: Soft, non-tender. Liver and spleen not palpable. DERMATOLOGICAL: Wound on the right briones improving. INVESTIGATIONS: Potassium 4.2. ASSESSMENT: 1. Acute right lower extremity traumatic wound, failed outpatient treatment. Continues to improve. 2. Chronic fibromyalgia. 3. Obesity; body mass index 34.2. 4. Essential hypertension. 5. Primary osteoarthritis. 6. Obstructive sleep apnea. Does not use CPAP machine. 7. Peripheral neuropathy, idiopathic. 8. Irritable bowel syndrome. 9. Raynaud's disease. 10.Anxiety and depression not otherwise specified. PLAN: He continues to improve, overall doing much better. Possibly home tomorrow. MMODL / IJN: [id number] /
[2018-06-15 23:05] VITALS: RESP 18
[2018-06-16] MEDS: PREGABALIN 75 MG CAP PO PRN (00:34)
[2018-06-16] MEDS: LEVOTHYROXINE 88 MCG TAB PO SCH (06:00)
[2018-06-16] MEDS ORDERED: VANCOMYCIN TROUGH DUE 1 EACH MISC MISCELLANE ONE (08:00)
[2018-06-16] MEDS: ENOXAPARIN 40 MG/0.4 ML SYRINGE SQ SCH (08:11)
[2018-06-16] MEDS: ASPIRIN 81 MG PO SCH (08:11)
[2018-06-16] MEDS: amLODIPine 10 MG TAB PO SCH (08:11)
[2018-06-16] MEDS: CALCIUM CARBONATE 500 MG CHEWABLE PO SCH (08:11)
[2018-06-16] MEDS: LISINOPRIL 10 MG TAB PO SCH (08:11)
[2018-06-16] MEDS: DULoxetine HCL 60 MG CAPSULE.DR PO SCH (08:11)
[2018-06-16] MEDS: HYDROCHLOROTHIAZIDE 12.5 MG CAP PO SCH (08:11)
[2018-06-16] MEDS: VANCOMYCIN 1,750 MG in SODIUM CHLORIDE 0.9% 500 ML 500 ML IVPB SCH (10:12)
[2018-06-16 11:11] LABS: Anion Gap 7 mmol/L; Blood Urea Nitrogen 25 mg/dL (7-17); Calcium 9.5 mg/dL (8.4-10.2); Carbon Dioxide 29 mmol/L (22-30); Chloride 105 mmol/L (98-107); Glucose 84 mg/dL (74-99); Potassium 4.7 mmol/L (3.5-5.1); Sodium 141 mmol/L (137-145)
[2018-06-16] MEDS: MULTIVITAMINS, THERA 1 EACH TAB PO SCH (11:19)
[2018-06-16] MEDS ORDERED: INFLUENZA VACCINE (6 MOS+) 60 MCG/0.5 ML SYRINGE IM ONE (14:32)
[2018-06-16] MEDS ORDERED: PNEUMOCOCCAL VACC-PNEUMOVAX 23 25 MCG/0.5 ML VIAL IM ONE (14:33)
[2018-06-16 15:01] VITALS: BP 129/84; PULSE 77; TEMP 97.8
--- NOTE | 2018-06-16 23:32 | DS ---
DISCHARGE SUMMARY DATE OF ADMISSION: 06/10/2018 DATE OF DISCHARGE: 06/16/2018 FINAL DIAGNOSES: 1. Acute right lower extremity traumatic wound having failed outpatient treatment with secondary cellulitis. 2. Chronic fibromyalgia. 3. Obesity; body mass index 34.8. 4. Essential hypertension. 5. Primary osteoarthritis. 6. Obstructive sleep apnea. Does not use CPAP. 7. Peripheral neuropathy, idiopathic. 8. Irritable bowel syndrome. 9. Raynaud disease. 10.Anxiety and depression not otherwise specified. HOSPITAL COURSE: This patient hurt her briones on the top corner of a plastic box and it got infected. She had presented to the ER, got stitches and went home on antibiotics. She did do some Epsom salt soaking and when not responding decided to come into the ER, where she was started on IV ceftriaxone and vancomycin. Doing much better by the time of discharge. Significantly healed ulcer got topical Silvadene cream dressing. PHYSICAL EXAMINATION: Afebrile. Pulse 64, respiration 18, blood pressure 131/76, pulse ox 92% on room air. Wound is healing well with greatly decreased redness and inflammation. LABS: Potassium 4.7. White count normal at 5.2. BUN 25, creatinine 0.75. DISCHARGE MEDICATIONS: 1. Synthroid 88 mcg a day. 2. Flonase 1-2 sprays daily p.r.n. 3. Singulair 10 mg p.o. at bedtime. 4. OxyContin 15 mg q.12 p.r.n. 5. Lisinopril 30 mg p.o. daily. 6. Aspirin 81 mg p.o. daily. 7. Cymbalta 120 mg p.o. daily. 8. Hydrochlorothiazide 12.5 p.o. daily. 9. Norvasc 10 mg p.o. daily. 10.Multivitamin 1 tablet p.o. daily. 11.Calcium citrate 500 mg p.o. t.i.d. 12.Clindamycin 300 mg q.6; 28 capsules. 13.Silvadene cream topically b.i.d. as instructed. Follow up with Dr. Sow in one week. MMODL / IJN: [id number] /
== END 2018-06-16 15:11 | disposition home or self-care (01) | DRG 605 ==
LOC: EC 19:37 → 4MS4W 20:33
PROVIDERS: ADMIT Hospitalist; ATTEND Hospitalist
DX: S81.801A Unspecified open wound, right lower leg, initial encounter (principal); L03.115 Cellulitis of right lower limb; E03.9 Hypothyroidism, unspecified; E66.9 Obesity, unspecified; F32.9 Major depressive disorder, single episode, unspecified; F40.240 Claustrophobia; G47.33 Obstructive sleep apnea (adult) (pediatric); G62.9 Polyneuropathy, unspecified; H40.9 Unspecified glaucoma; I10 Essential (primary) hypertension; I73.00 Raynaud's syndrome without gangrene; K58.9 Irritable bowel syndrome, unspecified; M06.9 Rheumatoid arthritis, unspecified; M19.91 Primary osteoarthritis, unspecified site; M79.7 Fibromyalgia; Z68.34 Body mass index [BMI] 34.0-34.9, adult; Z79.82 Long term (current) use of aspirin; Z79.899 Other long term (current) drug therapy; Z80.8 Family history of malignant neoplasm of other organs or systems; Z82.5 Family history of asthma and other chronic lower respiratory diseases; Z83.3 Family history of diabetes mellitus; Z86.73 Personal history of transient ischemic attack (TIA), and cerebral infarction without residual deficits; Z87.891 Personal history of nicotine dependence; Z79.891 Long term (current) use of opiate analgesic; Z79.51 Long term (current) use of inhaled steroids; Z88.2 Allergy status to sulfonamides; Z88.8 Allergy status to other drugs, medicaments and biological substances; Z98.84 Bariatric surgery status; Z98.42 Cataract extraction status, left eye; Z98.41 Cataract extraction status, right eye
CPT/HCPCS: 36415; 80048; 80053; 80202; 83605; 85025; 87040; 87070; 87075; 87205; 87324; 90686; 90732; 96365; 96375; 99284

== ENCOUNTER → 2018-07-07 | Outpatient (CLI) | payer MEDICARE, OTHER ==
--- NOTE | 2018-07-07 16:55 | P.PN ---
Subjective Progress Note Date: 07/07/18 HPI: She has weight regain and is now with GERD. Sylvia with her weight gain. PLAN: 1. May need revision of her surgery to a bypass. 2. Esophogram is needed. 3. Labs needed
[2018-07-07 17:07] VITALS: BMI 34.5
[2018-07-07 18:17] LABS: Prothrombin Time 10.4 sec (9.0-12.0)
[2018-07-07 18:19] LABS: Basophils % (A) 1 %; Eosinophils # (A) 0.1 k/uL (0-0.7); Eosinophils % (A) 2 %; HCT 39.2 % (34.0-46.0); HGB 12.7 gm/dL (11.4-16.0); Lymphocytes # (A) 2.7 k/uL (1.0-4.8); Lymphocytes % (A) 53 %; MCH 29.2 pg (25.0-35.0); MCHC 32.4 g/dL (31.0-37.0); MCV 90.1 fL (80.0-100.0); Mean Platelet Volume 7.5; Monocytes # (A) 0.2 k/uL (0-1.0); Monocytes % (A) 4 %; Neutrophils # (A) 1.9 k/uL (1.3-7.7); Neutrophils % (A) 38 %; Platelet Count 156 k/uL (150-450); RBC 4.36 m/uL (3.80-5.40); RDW 13.3 % (11.5-15.5); WBC 5.1 k/uL (3.8-10.6)
[2018-07-08 03:13] LABS: Albumin 4.8 g/dL (3.80-4.90); Albumin/Globulin Ratio 2.67 (1.20-2.10); Anion Gap 10.4 mmol/L (4.00-12.00); Calcium 9.4 mg/dL (8.7-10.3); Carbon Dioxide 27.6 mmol/L (21.6-31.8); Globulin 1.8 g/dL (2.1-3.7); LDL Cholesterol,Calculated 93.6 mg/dL (0.0-131.0); Magnesium 1.8 mg/dL (1.5-2.4); Phosphorus 3.7 mg/dL (2.4-5.1); Potassium 3.9 mmol/L (3.5-5.5); Total Bilirubin 0.4 mg/dL (0.3-1.2); Total Protein 6.6 g/dL (6.2-8.2); VLDL Calculation 18.4 mg/dL (5.00-40.00)
[2018-07-08 03:17] LABS: Iron Saturation 19.05 (12.00-45.00)
[2018-07-08 03:26] LABS: Vitamin D 25 Hydroxy 37.6 ng/mL (30.0-100.0)
[2018-07-08 03:38] LABS: Folate, Serum 17.1 ng/mL
[2018-07-08 04:17] LABS: Parathyroid Hormone Intact 115.1 pg/mL (14.0-72.0)
[2018-07-08 04:54] LABS: Hemoglobin A1C 5.1 % (4.0-6.0)
[2018-07-08 14:04] LABS: Zinc, Serum 78 ug/dL (60-130)
[2018-07-09 06:55] LABS: Vitamin A 54 ug/dL (38-106)
[2018-07-09 07:07] LABS: Vitamin B1 57 ug/L (38-122)
== END ==
LOC: BARWHC3 14:59
PROVIDERS: ATTEND Surgery Plastic and Reconstructive Surgery
DX: K21.9 Gastro-esophageal reflux disease without esophagitis (principal); E66.01 Morbid (severe) obesity due to excess calories; E21.1 Secondary hyperparathyroidism, not elsewhere classified; E89.1 Postprocedural hypoinsulinemia; D50.9 Iron deficiency anemia, unspecified; K90.9 Intestinal malabsorption, unspecified; E55.9 Vitamin D deficiency, unspecified; K74.1 Hepatic sclerosis; N19 Unspecified kidney failure; K50.90 Crohn's disease, unspecified, without complications; Z68.34 Body mass index [BMI] 34.0-34.9, adult
CPT/HCPCS: 84255; 84134; 84425; 80061; 80053; 82607; 82728; 82525; 82746; 83540; 83550; 83735; 84100; 84443; 84590; 84630; 85025; 85610; 85730; 82306; 83970; 83036; G0463; 99211

== ENCOUNTER → 2018-07-07 | Outpatient (CLI) | payer MEDICARE, OTHER | END | disposition home or self-care (01) | LOC: LABWHC1 17:13 | PROVIDERS: ATTEND Physician Assistant Medical | DX: Z53.9 Procedure and treatment not carried out, unspecified reason (principal) ==

== ENCOUNTER → 2018-08-09 | Outpatient (CLI) | payer MEDICARE, OTHER ==
--- NOTE | 2018-08-10 06:20 | XR ---
EXAMINATION TYPE: XR KUB DATE OF EXAM: 08/09/2018 5:53 PM CLINICAL HISTORY: Low back pain per order. Left flank pain. TECHNIQUE: Two Upright KUB images of the abdomen are obtained. COMPARISON: CT abdomen and pelvis June 18, 2016. FINDINGS: Scattered gas is seen in non-distended small bowel loops. Gas and fecal material is seen in non-distended colon. Surgical clips and sutures left upper quadrant from gastric probable sleeve aurea octavia are redemonstrated. A few left-sided pelvic phleboliths are seen. Visualized osseous structures are intact. No definitive nephrolithiasis. IMPRESSION: Overall nonobstructive bowel gas pattern.
== END | disposition home or self-care (01) ==
LOC: RADXRMAIN 17:43
PROVIDERS: ATTEND Physician Assistant
DX: M54.5 Low back pain (principal)
CPT/HCPCS: 74018

== ENCOUNTER → 2018-09-03 | Outpatient (CLI) | payer MEDICARE, OTHER ==
--- NOTE | 2018-09-03 09:40 | FL ---
EXAMINATION TYPE: FL barium swallow DATE OF EXAM: 09/03/2018 CLINICAL HISTORY: History of gastric sleeve. Gastroesophageal reflux and epigastric pain TECHNIQUE: A single contrast esophagram is performed utilizing thin barium. A total of 1 minute and 42 seconds of fluoroscopic time was utilized during procedure. 39 fluoroscopic images were saved dur ing the examination. COMPARISON: None FINDINGS: The esophagus shows normal motility and emptying into the stomach. There is a small hiatal hernia most conspicuous on supine images with mild grade gastroesophageal reflux to the level of dist al thoracic esophagus in the supine position, increased with the Valsalva maneuver although also pres ent unprovoked. Partial gastrectomy has been performed. IMPRESSION: 1. Small hiatal hernia. 2. Mild grade gastroesophageal reflux to the level of the distal third of the esophagus. 3. Status post partial gastrectomy.
== END | disposition home or self-care (01) ==
LOC: RADFLWHC 08:34
PROVIDERS: ATTEND Surgery Plastic and Reconstructive Surgery
DX: K44.9 Diaphragmatic hernia without obstruction or gangrene (principal); K21.9 Gastro-esophageal reflux disease without esophagitis; Z90.3 Acquired absence of stomach [part of]
CPT/HCPCS: 74220

== ENCOUNTER → 2018-09-13 | Outpatient (CLI) | payer MEDICARE, OTHER ==
[2018-09-13 15:34] LABS: Basophils % (A) 0 %; Eosinophils # (A) 0.1 k/uL (0-0.7); Eosinophils % (A) 2 %; HCT 40.5 % (34.0-46.0); HGB 13.2 gm/dL (11.4-16.0); Lymphocytes # (A) 2.2 k/uL (1.0-4.8); Lymphocytes % (A) 36 %; MCHC 32.7 g/dL (31.0-37.0); MCV 91.8 fL (80.0-100.0); Mean Platelet Volume 7.2; Monocytes # (A) 0.2 k/uL (0-1.0); Monocytes % (A) 4 %; Neutrophils # (A) 3.5 k/uL (1.3-7.7); Neutrophils % (A) 56 %; Platelet Count 150 k/uL (150-450); RBC 4.41 m/uL (3.80-5.40); RDW 13.2 % (11.5-15.5); WBC 6.2 k/uL (3.8-10.6)
[2018-09-14 00:09] LABS: Iron Saturation 19.74 (12.00-45.00)
== END | disposition home or self-care (01) ==
LOC: LABWHC1 14:54
PROVIDERS: ATTEND Dermatology MOHS-Micrographic Surgery
DX: L82.1 Other seborrheic keratosis (principal); L40.1 Generalized pustular psoriasis; L63.8 Other alopecia areata
CPT/HCPCS: 36415; 82565; 82728; 83540; 83550; 84450; 84460; 85025

== ENCOUNTER → 2018-12-24 | Outpatient (CLI) | payer MEDICARE | END | disposition home or self-care (01) | LOC: LABWHC1 14:27 | PROVIDERS: ATTEND Nurse Practitioner Family | DX: L40.1 Generalized pustular psoriasis (principal) | CPT/HCPCS: 36415 ==